=== PATIENT | male | born 1980 | race Caucasian/White ===

== ENCOUNTER 2018-03-21 06:09 | Inpatient (IN) ==
[2018-03-21] MEDS ORDERED: Sod Chloride 0.9% Inj 1,000 ML IV.SIG SCH ×3 (06:45)
--- NOTE | 2018-03-21 06:45 | ED ---
HPI General Chief Complaint: Cardiac Arrest/CPR Stated Complaint: Unresponsive Time Seen by Provider: 03/21/18 06:32 Source: patient and EMS Mode of arrival: EMS Limitations: altered mental status History of Present Illness HPI narrative: 37 yo M arrives by EMS 2/ unresponsive state. EMS reports pt was found unresponsive outside on a porch. On scene patient was pulseless and CPR was initiated with patient found to be asystolic followed by PEA. Epinephrine given multiple times en route. Bicarb given once. No pulse en route. Combitube intubation was performed successfully. Pt arrived to ED while CPR was performed by EMS. Related Data Home Medications Medication Instructions Recorded Confirmed Unable to Obtain Home Meds 03/21/18 03/21/18 Allergies Allergy/AdvReac Type Severity Reaction Status Date / Time No Allergy Information Allergy Verified 03/21/18 06:25 Available Review of Systems ROS Unobtainable ROS Unobtainable: unobtainable due to endotracheal tube PMFSH Social History Social History Substance History: Unable to Obtain Second Hand Smoke Exposure: Yes Smoking Status: Unknown if ever smoked Tobacco Type: Cigarettes How Often Do You Have a Drink Containing Alcohol: Unable to Obtain Immunization History Tetanus Immunization: Unsure Exam Narrative Exam Narrative: GENERAL: 37 yo male, WNWD, GCS 3T, pupils fixed and dilated, pt very cold to palpation SKIN: Skin intact. Skin cold. HEAD: Atraumatic. Normocephalic. EYES: Pupils fixed and dilated. ENT: Intubated with combitube. NECK: Trachea midline. +JVD. CARDIOVASCULAR: Asystole. RESPIRATORY: Combitube intubation. + Breath sounds bilaterally GASTROINTESTINAL: Distended abdomen. MUSCULOSKELETAL: No obvious deformities. No clubbing. No cyanosis. No edema. NEUROLOGICAL: GCS 3T. PSYCHIATRIC: Unable to assess. Course Initial Documented Vital Signs Pulse Rate 79 03/21/18 06:25 Respiratory Rate 6 L 03/21/18 06:25 Blood Pressure 87/31 L 03/21/18 06:25 Pulse Oximetry 78 L 03/21/18 06:25 Last Documented Vital Signs Temperature 85 F L 03/21/18 07:02 Pulse Rate 90 03/21/18 07:02 Respiratory Rate 18 03/21/18 07:02 Blood Pressure 97/50 L 03/21/18 07:02 Pulse Oximetry 100 03/21/18 07:02 Procedures Central Line Placement Right IJ: Time Out Performed: Yes Patient Placed on Monitor/Pulse Ox: Yes MD Prep: mask, gown and gloves Central Line Prep: Povidone-Iodine 1% and sterile drapes applied Ultrasound Used for Placement: Yes Central Line Lumen Inserted: triple Post Procedure: good blood return, all ports aspirated, flushed, capped and sterile dressing applied Patient Tolerated Procedure: no complications Complications: none Intubation Time Out Performed: Yes Sedative: none Laryngoscope: Diya ET Tube Size: 8 ET Tube Uncuffed: Yes Tube Secured Depth (cm): 24 Tube Placement Confirmation: visualized tube passing through cords, equal breath sounds bilaterally, no breath sounds over epigastrium and confirmation by capnometry Patient Tolerated Procedure: well Intubation Complications: none Critical Care Time Critical Care Time: Yes Total Critical Care Time: 35 Attestation: Aggregate critical care time was 35 minutes. Time to perform other separately billable procedures was not included in the critical care time. My time did not include minutes spent treating any other patients simultaneously or on activities that did not directly contribute to the patient's treatment. The services I provided to this patient were to treat and/or prevent clinically significant deterioration that could result in: cardiopulmonary arrest I provided critical care services requiring my management, as noted below: Chart data review, documentation time, medication orders and management, vital sign assessments/reviewing monitor data, ordering and reviewing lab tests, ordering and interpreting/reviewing x-rays and diagnostic studies, care of the patient and discussion of the patient with the admitting physicians. Medical Decision Making MDM Narrative Medical decision making narrative: Prior records demonstrate one ED visit after pt injected IV heroine. After one round CPR return of circulation occurred. Pt had been intubated with 8-0 tube and RIJ central line placed without difficulty. 3L NS bolus started, 1 with 1mg epinephrine as blood pressure decreased to 60/ 33 with pulse of about 100. EKG shows atrial fibrillation, rate 69, moderate SP depressions throughout multiple leads Call to digital research analyst service was made at 635AM. CXR shows RIJ central line overlying SVC without PTX . ETT tip in trachea. d/w Dr Pepe for Cardiac Sonographer Service with CT brain pending Medical Screen Exam Complete: Yes Emergency Medical Condition: Yes Lab Data Result diagrams: 03/21/18 06:40 03/21/18 06:40 Lab Results 03/21/18 Range/Units 06:40 WBC 15.6 H (4.0-11.0) th/mm3 RBC 3.86 L (4.50-5.90) mil/mm3 Hgb 12.1 L (13.0-17.0) gm/dL Hct 36.6 L (39.0-51.0) % MCV 94.8 (80.0-100.0) fL MCH 31.4 (27.0-34.0) pg MCHC 33.1 (32.0-36.0) % RDW 13.9 (11.6-17.2) % Plt Count 148 L (150-450) th/mm3 MPV 10.2 (7.0-11.0) fL Prelim Diff (Auto) Slide review pending Neut % (Auto) 53.5 (16.0-70.0) % Lymph % (Auto) 34.4 (9.0-44.0) % Wagoner % (Auto) 10.4 H (0.0-8.0) % Eos % (Auto) 1.5 (0.0-4.0) % Baso % (Auto) 0.2 (0.0-2.0) % Neut # (Auto) 8.3 H (1.8-7.7) th/mm3 Lymph # (Auto) 5.3 H (1.0-4.8) th/mm3 Wagoner # (Auto) 1.6 H (0.0-0.9) th/mm3 Eos # (Auto) 0.2 (0.0-0.4) th/mm3 Baso # (Auto) 0.0 (0.0-0.2) th/mm3 Differential Comment . Imaging Data Radiologist's impression: Chest X-Ray 03/21/18 06:32 CONCLUSION: Lines and tubes appear appropriate in position. Bilateral perihilar patchy airspace consolidation is present. Pattern consistent with noncardiac pulmonary edema. Discharge Plan Discharge Disposition Patient Disposition: ED Admit(ED Internal Use Only) Discharge Order Discharge Orders: ED Use Only Admit Order (Routine); Ordered 03/21/18 Ordered By: Jc Whittaker Physicians Team ED Provider: Jc Whittaker Primary Care Provider: UNKNOWN, Rxs /Orders / Referrals /Forms Prescriptions: No Action Unable to Obtain Home Meds RF: 0 Status ED Status: With Doctor
[2018-03-21 07:02] LABS: Baso % (Auto) 0.2 % (0.0-2.0); Eos # (Auto) 0.2 th/mm3 (0.0-0.4); Eos % (Auto) 1.5 % (0.0-4.0); Hematocrit 36.6 % (39.0-51.0); Hemoglobin 12.1 gm/dL (13.0-17.0); Lymph # (Auto) 5.3 th/mm3 (1.0-4.8); Lymph % (Auto) 34.4 % (9.0-44.0); Mean Corpuscular HGB Conc 33.1 % (32.0-36.0); Mean Corpuscular Hemoglobin 31.4 pg (27.0-34.0); Mean Corpuscular Volume 94.8 fL (80.0-100.0); Mean Platelet Volume 10.2 fL (7.0-11.0); Mono # (Auto) 1.6 th/mm3 (0.0-0.9); Mono % (Auto) 10.4 % (0.0-8.0); Neut # (Auto) 8.3 th/mm3 (1.8-7.7); Neut % (Auto) 53.5 % (16.0-70.0); Platelet Count 148 th/mm3 (150-450); Red Blood Count 3.86 mil/mm3 (4.50-5.90); Red Cell Distribution Width 13.9 % (11.6-17.2); White Blood Count 15.6 th/mm3 (4.0-11.0)
--- NOTE | 2018-03-21 07:08 | XR ---
EXAM DATE: 03/21/2018 6:55 AM EST AGE/SEX: 37 years / Male INDICATIONS: E-T tube placement post cardiac arrest on an unresponsive patient also suffering from h ypothermia. CLINICAL DATA: This is the patient's initial encounter. Patient reports that signs and symptoms have been present for 1 day and indicates a pain score of Nonresponsive. MEDICAL/SURGICAL HISTORY: Non-responsive. Non-responsive. COMPARISON: [facility] [place], CHEST PA & LAT, 08/02/2011. . FINDINGS: Single AP view of the chest demonstrates an endotracheal tube with the tip at the level of the clavic les. Gastric tubing extending beyond the level the diaphragm and coiled within the stomach. Right-vanita ed IJ line with the tip overlying the distal SVC. Lungs demonstrate bilateral patchy perihilar airspa ce consolidation. Osseous structures are unremarkable. CONCLUSION: Lines and tubes appear appropriate in position. Bilateral perihilar patchy airspace consolidation is present. Pattern consistent with noncardiac pulmonary edema. Electronically signed by: Vicky Curtis MD Board Certified Radiologist 03/21/2018 7:07 AM EST
[2018-03-21 07:19] LABS: Bilirubin,Urine Negative (Negative); Clarity,Urine Hazy (Clear); Color,Urine Yellow (Yellw/Straw); Glucose,Urine (UA) Negative (Negative); Hyaline Casts,Urine 25 /lpf (0-3); Leukocyte Esterase,Urine Negative (Negative); Mucus,Urine Few /lpf (Occasional); Nitrite,Urine Negative (Negative); Specific Gravity,Urine 1.013 (1.002-1.035); Sperm,Urine Rare /hpf; Squamous Epithelial Cell,Urine <1 /hpf (0-5)
[2018-03-21 07:21] LABS: Amphetamine Screen,Urine Pos (Neg); Barbiturate Screen,Urine Neg (Neg); Cannabinoid Screen,Urine Neg (Neg); Cocaine Screen,Urine Neg (Neg)
[2018-03-21 07:24] LABS: Opiate Screen,Urine Pos (Neg)
[2018-03-21 07:26] LABS: Alanine Aminotransferase 291 U/L (12-78); Albumin 2.9 g/dL (3.4-5.0); Alkaline Phosphatase 142 U/L (45-117); Anion Gap 26 meq/L (5-15); Aspartate Aminotransferase 351 U/L (15-37); Blood Urea Nitrogen 22 mg/dL (7-18); Calcium 7.9 mg/dL (8.5-10.1); Carbon Dioxide 19.4 meq/L (21.0-32.0); Chloride 98 meq/L (98-107); Glomerular Filtration Rate 30 mL/min (>89); Magnesium 3.6 mg/dL (1.5-2.5); Potassium 4.5 meq/L (3.5-5.1); Sodium 143 meq/L (136-145); Total Protein 5.5 g/dL (6.4-8.2); Troponin I 0.05 ng/mL (0.02-0.05)
[2018-03-21 07:37] LABS: Eosinophils 2 % (0-4); Monocytes 9 % (0-8); Myelocytes 1 % (0-0); Tallied Nucleated RBC 1 (0-0)
[2018-03-21 07:38] LABS: Glucose,Random 45 mg/dL (74-106); Lymphocytes 40 % (9-44)
[2018-03-21 07:39] LABS: Platelet Morphology Normal (Normal); RBC Morphology Normal (Normal)
--- NOTE | 2018-03-21 07:46 | CT ---
EXAM DATE: 03/21/2018 7:31 AM EST AGE/SEX: 37 years / Male INDICATIONS: Unresponsive. Post cardiac arrest. CLINICAL DATA: This is the patient's initial encounter. Patient reports that signs and symptoms have been present for 1 day and indicates a pain score of Nonresponsive. MEDICAL/SURGICAL HISTORY: Non-responsive. Non-responsive. RADIATION DOSE: 56.35 CTDI (mGy) COMPARISON: [facility] [place], CT BRAIN W/O CONTRAST, 10/13/2012. . TECHNIQUE: CT of the head without contrast. Using automated exposure control and adjustment of the mA and/or kV according to patient size, radiation dose was kept as low as reasonably achievable to ob tain optimal diagnostic quality images. DICOM format image data is available electronically for revi ew and comparison. FINDINGS: Cerebrum: The ventricles are symmetrically decreased in size as compared to the prior exam. The presley -white matter preserved. There appears to be diffuse effacement of the sulci as compared to the prior exam. Posterior Fossa: The fourth ventricle remains patent but decreased in size as compared to the prior exam. Extracranial: The visualized portion of the orbits is intact. Skull: The calvaria is intact. No evidence of skull fracture. CONCLUSION: 1. There is evidence of diffuse cerebral swelling with decreased size of the ventricles as compared to the prior exam and poor visualization of the sulci as compared to the prior exam. . Electronically signed by: Vicky Curtis MD Board Certified Radiologist 03/21/2018 7:44 AM EST
[2018-03-21 07:48] LABS: ABG Base Excess -18.2 mmol/L (-2-2); ABG PCO2 65 mmHg (38-42); ABG PO2 348 mmHg (61-120)
[2018-03-21] MEDS ORDERED: Bisacodyl 10 MG Supp RECTAL PRN (07:51)
[2018-03-21] MEDS ORDERED: Dextrose 50% in Water 50 ML Vial IV.PUSH PRN (07:55)
[2018-03-21] MEDS: Sodium Bicarbonate 8.4% Inj 150 MEQ in Dextrose 5% in Water Inj 850 ML IV.CONT SCH ×6 (08:25→22:37)
[2018-03-21] MEDS ORDERED: Vancomycin Inj 1,000 MG in Sodium Chlor 0.9% Inj 250 ML IV.SIG ONE (09:00)
--- NOTE | 2018-03-21 09:43 | MH ---
cc: Karissa Pepe MD DATE OF ADMISSION: 03/21/2018 HISTORY OF PRESENT ILLNESS: The patient is a 37-year-old male with a past medical history of polysubstance abuse who presented to [facility] ED via EMS status post cardiopulmonary arrest. He was found unresponsive outside on the porch and when EMS arrived, the patient was found pulseless. CPR was initiated and the patient was in asystole followed by a PEA arrest. ACLS protocol was initiated, and the patient received epinephrine multiple times en route and bicarbonate. Combitube intubation was performed successfully. The patient arrived in the ED, while CPR was performed by EMS. On arrival, he was hypotensive with a systolic blood pressure in the 80s, hypothermic with a temperature of 84-85 degrees Fahrenheit. In the ED, he was given a 3 liter bolus of normal saline, intubated with 8.0 ET tube, and a right IJ central line was placed by ED physician. Also, he was started on Levophed, which is currently at 10 mcg. His laboratory data is significant for severe lactic acidosis with a lactic acid level of 19.5, acute renal failure with a creatinine of 2.42. In addition, the patient was hypoglycemic with a blood sugar of 45 on the CMP. Also, he has leukocytosis with a WBC of 15.6. Initial ABG on the ventilator showed severe respiratory and metabolic acidosis with a pH of 6.91, CO2 65, PaO2 348, bicarbonate of 12, saturations of 97%. Chest x-ray showed bilateral perihilar patchy airspace consolidation. A CT scan of the brain was obtained, which showed diffuse cerebral swelling with decreased size of the ventricles. The patient is unresponsive and not on any sedation. PAST MEDICAL HISTORY: Unobtainable. PAST SURGICAL HISTORY: Unobtainable. ALLERGIES: Unknown. SOCIAL HISTORY: The patient has a history of polysubstance abuse, per ED. FAMILY HISTORY: Noncontributory. REVIEW OF SYSTEMS: Unobtainable. PHYSICAL EXAMINATION: GENERAL: A 37-year-old male status post cardiac arrest, orally intubated and critically ill. VITAL SIGNS: Hypothermic with temperature 84-85 degrees rectally, pulse is 91, blood pressure 131/85 on Levophed, saturation 100%. Vent settings: PRVC rate of 24, tidal volume 600, I time 1.0, PEEP of 5, FiO2 of 50%. HEENT: Pupils fixed, dilated. NECK: No JVD, adenopathy, or thyromegaly. Orally intubated. CARDIOVASCULAR: Regular rhythm. Normal S1, S2. No murmurs, rubs or gallops noted. PULMONARY: Bilateral equal air entry. No rales or wheezing. ABDOMEN: Soft, nontender. No distention. Positive bowel sounds. EXTREMITIES: No cyanosis, clubbing or edema. NEUROLOGIC: GCS score of 3. Pupils fixed, dilated, unresponsive, not on any sedation. LABORATORY DATA: WBC 15.6, hemoglobin 12, hematocrit 36, platelet count 148. Sodium 143, potassium 4.5, chloride 98, CO2 of 19, BUN 22, creatinine 2.42, glucose 45. Lactic acid 19.5, AST 351, ALT 291, total bilirubin 1.7. Troponin 0.05. Albumin 2.9. ABG showed pH of 6.91, CO2 65, pO2 348, bicarbonate 12, saturation 97%. Urine drug screen positive for opiates and amphetamines. Chest x-ray showed ET tube above the albertina, right IJ central line in place, bilateral perihilar patchy airspace consolidation. CT brain showed diffuse cerebral swelling. IMPRESSION: 1. Ventilator-dependent respiratory failure. 2. Status post cardiopulmonary arrest. 3. Anoxic brain injury. 4. Aspiration pneumonia. 5. Polysubstance abuse with urine drug screen positive for amphetamines and opiates. 6. Lactic acidemia 7. Acute kidney injury. 8. Elevated liver enzymes. 9. Leukocytosis. 10. Hypoglycemia. RECOMMENDATIONS: 1. The patient is not on any sedation and unresponsive. CT scan of the brain showed diffuse cerebral swelling. We will obtain EEG, check ammonia level, and consult neurology service. 2. Continue with vent support and maintain sats above 92%. 3. Bronchodilators in the form of DuoNeb. 4. Place on stress dose steroids 100 mg IV every 8 hours. 5. Wean off Levophed. Maintain MAP greater than 65 mmHg. Serial lactic acid until clear. 6. We will give 2 amps of IV push of sodium bicarbonate followed by D5W with 3 amps of bicarbonate at 150 mL an hour. 7. The patient is not a candidate for Code Cool due to hemodynamic instability, severe lactic acidemia multiorgan injury, and with diffuse cerebral swelling on CT of brain and anoxic brain injury. 8. We will obtain 2-D echo to evaluate ventricular function. 9. Monitor renal function, intake and output, and avoid nephrotoxins. 10. I will obtain ultrasound of the abdomen and place on bicarbonate drip as stated above. Check CKs and monitor BMP. 11. Keep n.p.o. and place on Pepcid for gastrointestinal prophylaxis. Monitor liver function tests. We will obtain ultrasound of the liver and hepatitis profile. 12. Place on empiric antibiotics in the form of aztreonam, and will give 1 dose of vancomycin. Monitor for signs of infection, which include fever and WBC. Follow up on blood cultures. We will obtain a sputum culture with Gram stain. His nasal washing screening for influenza is negative. 13. Place on sliding scale insulin with Accu-Cheks every 4 hours. 14. Monitor CBC. 15. Gastrointestinal prophylaxis with Pepcid, and deep venous thrombosis prophylaxis with sequential compression devices. 16. Consult palliative care to assist with goals of care. 17. Lines: Right IJ central line was placed by ED physician. 18. The patient is critically ill with severe anoxic brain injury, acute renal failure, multiple organ injury post-cardiac arrest. CRITICAL CARE TIME: Sixty minutes, excluding procedures. MD JARRET Gaming/anastasia , 08:57 AM , 09:10 AM
[2018-03-21 10:04] LABS: ABG Base Excess -8.3 mmol/L (-2-2); ABG PCO2 34 mmHg (38-42); ABG PO2 57 mmHG (61-120)
[2018-03-21 10:36] LABS: Creatine Kinase MB 31.5 ng/mL (0.5-3.6)
[2018-03-21 10:37] LABS: Hepatitits B Surface Antigen Nonreactive (Nonreactive)
[2018-03-21 10:46] LABS: ABG Base Excess -7.5 mmol/L (-2-2); ABG PCO2 35 mmHg (38-42); ABG PO2 235 mmHG (61-120)
[2018-03-21] MEDS: Pantoprazole Inj 40 MG Vial IV.PUSH SCH (10:57)
[2018-03-21 11:08] LABS: Hepatitis A IgM Antibody Nonreactive (Nonreactive)
[2018-03-21] MEDS: fentaNYL 10 mcg/mL Premix Drip 2,500 MCG/250 ML BAG IV.SIG PRN (11:11)
[2018-03-21] MEDS: Hydrocortisone Sod Succinate 100 MG Vial IV.PUSH SCH ×3 (11:12→21:04)
[2018-03-21] MEDS ORDERED: Insulin NovoLOG Aspart Correctional Sugar Inj SQ SCH (12:00)
[2018-03-21 12:51] LABS: Albumin 2.9 g/dL (3.4-5.0); Calcium 6.6 mg/dL (8.5-10.1); Carbon Dioxide 25.2 meq/L (21.0-32.0); Potassium 3.1 meq/L (3.5-5.1); Total Protein 5.7 g/dL (6.4-8.2)
[2018-03-21] MEDS: Insulin NovoLOG Aspart Correctional Sugar Inj SQ SCH ×2 (13:39→18:36)
[2018-03-21] MEDS ORDERED: Potassium Chlor 40 mEq Premix 40 MEQ/100 ML PIGGYBACK IV.SIG ONE (14:00)
--- NOTE | 2018-03-21 15:45 | P.CONNEU ---
History of Present Illness Service: Neurology Primary Care Provider: UNKNOWN History of Present Illness: 37-year-old male admitted cardiac arrest. Apparently found down on the porch. Found by EVAC to be pulseless in [place]. Apparently no pulse en route to the hospital. In the ER he suspects successfully resuscitated. Intubated in cardiac critical care. Urine drug screen positive for amphetamines. CT brain scan demonstrated cortical edema. Patient is not on sedation is intubated unable to give any history. Review of Systems unobtainable due to endotracheal tube, unobtainable due to mental status PMFSH - History History Provided By: Replenishment Analyst / EMT - Medical History Medical History: Medical History (Last Reviewed 03/21/18 @ 06:26 by Deedee Ware) Patient denies medical problems - Surgical History Surgical History: Surgical History (Last Reviewed 03/21/18 @ 06:26 by Deedee Ware) No history of previous surgery - Tobacco History Second Hand Smoke Exposure: Yes Smoking Status: Unknown if ever smoked Tobacco Type: Cigarettes - Alcohol History How Often Do You Have a Drink Containing Alcohol: Unable to Obtain - Substance Use History Substance History: Unable to Obtain - Immunization History Tetanus Immunization: Unsure Medications and Allergies Active Medications: Active Medications Al Hydroxide/Mg Hydroxide (Milk Of Mick Grey) 30 ml PO Q12H PRN PRN Reason: Mild Constipation Albuterol (Duoneb Neb (Prn)) 1 ampul NEB Q2HR NEB PRN PRN Reason: WHEEZING Albuterol (Duoneb Neb (Evan)) 1 ampul NEB Q4HR NEB EVAN Last Admin: 03/21/18 12:14 Dose: 1 ampul Bisacodyl (Dulcolax Supp) 10 mg RECTAL DAILY PRN PRN Reason: SEVERE CONSITIPATION Chlorhexidine Gluconate (Chlorhexidine 2% Cloth) 3 pack TOPICAL DAILY@0400 EVAN Stop: 03/27/18 03:59 Chlorhexidine Gluconate (Chlorhexidine 2% Cloth) 3 pack TOPICAL DAILY@0400 PRN PRN Reason: Extra cloth needed Stop: 03/27/18 03:59 Dextrose (D50w Vial) 50 ml IV.PUSH UNSCH PRN PRN Reason: PER HYPOGLYCEMIA PROTOCOL Glucagon (Glucagon Inj) 1 mg OTHER PRN PRN PRN Reason: for Hypoglycemia Protocol Hydrocortisone Sodium Succinate (Solucortef Inj) 100 mg IV.PUSH Q8HR EVAN Last Admin: 03/21/18 13:40 Dose: 100 mg Sodium Chloride (Ns Inj) 1,000 mls @ 0 mls/hr IV.SIG .Q0M EVAN Last Infusion: 03/21/18 07:40 Dose: Infused Sodium Chloride (Ns Inj) 1,000 mls @ 0 mls/hr IV.SIG .Q0M EVAN Last Infusion: 03/21/18 08:45 Dose: Infused Sodium Chloride (Ns Inj) 1,000 mls @ 0 mls/hr IV.SIG .Q0M [facility] Last Infusion: 03/21/18 09:00 Dose: Infused Norepinephrine Bitartrate (Levophed-Dextrose 4 Mg/250 Ml Drip) 4 mg in 250 mls @ 7.5 mls/hr IV.SIG TITRATE PRN; Protocol PRN Reason: Per Protocol Last Titration: 03/21/18 13:42 Dose: 0 mcg/min, 0 mls/hr Sodium Bicarbonate 150 meq/ (Dextrose) 1,000 mls @ 150 mls/hr IV.CONT .Q6H40M [facility] Last Admin: 03/21/18 15:25 Dose: 150 mls/hr Aztreonam 1,000 mg/ Sodium (Chloride) 100 mls @ 200 mls/hr IV.SIG Q8H [facility] Last Infusion: 03/21/18 09:00 Dose: Infused Fentanyl (Fentanyl 10 Mcg/Ml Premix Drip) 2,500 mcg in 250 mls @ 5 mls/hr IV.SIG TITRATE PRN; Protocol PRN Reason: Per Protocol Last Admin: 03/21/18 11:11 Dose: 50 mcg/hr, 5 mls/hr Potassium Chloride (Kcl 40 Meq Premix Inj) 40 meq in 100 mls @ 25 mls/hr IV.SIG ONCE ONE Stop: 03/21/18 17:59 Last Admin: 03/21/18 14:43 Dose: 25 mls/hr Insulin Aspart (Novolog Insulin Correctional Sugar Inj) 0 unit SQ Q4HR [facility]; Protocol Last Admin: 03/21/18 13:39 Dose: 1 unit Lactulose (Lactulose Liq) 30 ml PO DAILY PRN PRN Reason: SEVERE CONSITIPATION Pantoprazole Sodium (Protonix Inj) 40 mg IV.PUSH DAILY [facility] Last Admin: 03/21/18 10:57 Dose: 40 mg Sennosides (Senokot) 17.2 mg PO Q12H PRN PRN Reason: Moderate Constipation Sodium Chloride (Ns Flush) 2 ml IV.FLUSH BID EVAN Last Admin: 03/21/18 11:13 Dose: 2 ml Sodium Chloride (Ns Flush) 2 ml IV.FLUSH PRN PRN PRN Reason: FLUSH AFTER USING IV ACCESS Terbutaline Sulfate (Brethine Inj) 1 mg SQ UNSCH PRN PRN Reason: For Extravasation Allergies Allergy/AdvReac Type Severity Reaction Status Date / Time No Allergy Information Allergy Verified 03/21/18 06:25 Available Home Medications Medication Instructions Recorded Confirmed Type Unable to Obtain Home Meds 03/21/18 03/21/18 History Exam Vital signs: Vital Signs 03/21/18 06:25 03/21/18 06:30 03/21/18 06:32 Temperature Pulse Rate 79 Respiratory Rate 6 L 18 Blood Pressure 87/31 L Pulse Oximetry 78 L 97 100 03/21/18 07:02 03/21/18 07:15 03/21/18 07:23 Temperature 85 F L 84 F L Pulse Rate 90 88 Respiratory Rate 18 18 Blood Pressure 97/50 L 85/44 L Pulse Oximetry 100 100 100 03/21/18 07:33 03/21/18 07:52 03/21/18 07:55 Temperature Pulse Rate 74 81 Respiratory Rate 18 Blood Pressure 113/66 Pulse Oximetry 100 100 03/21/18 08:29 03/21/18 09:26 03/21/18 09:36 Temperature 86.6 F L Pulse Rate 89 Respiratory Rate 25 H 26 H Blood Pressure 138/88 Pulse Oximetry 99 95 96 03/21/18 09:59 03/21/18 11:00 03/21/18 12:14 Temperature 89.2 F L Pulse Rate 81 88 Respiratory Rate 28 H 24 24 Blood Pressure 135/95 H Pulse Oximetry 100 100 03/21/18 12:15 03/21/18 14:17 03/21/18 15:00 Temperature 96.2 F L Pulse Rate 89 100 H Respiratory Rate 12 24 24 Blood Pressure 141/90 H Pulse Oximetry 99 100 Intake & Output 03/20/18 03/21/18 03/21/18 18:59 06:59 18:59 Intake Total 4500 / 4500 Balance 4500 / 4500 Weight 95.254 kg Intake: IV 4500 / 4500 Sodium Bicarbonate 8.4% Inj 150 1000 / 1000 MEQ In D5W Inj 850 ML @ 150 mls/hr IV.CONT .Q6H40M [facility] Rx#: [id number] Azactam Inj 1,000 MG In NS Inj 100 / 100 100 ML @ 200 mls/hr IV.SIG Q8H [facility] Rx#:[id number] Levaquin 750 mg Premix Inj 150 150 / 150 ML @ 100 mls/hr IV.SIG ONCE ONE Rx#:[id number] NS Inj 1,000 ML @ Wide Open IV. 3000 / 3000 SIG .Q0M [facility] Rx#:[id number] Vancomycin Inj 1,000 MG In NS 250 / 250 Inj 250 ML @ 250 mls/hr IV.SIG ONCE ONE Rx#:[id number] Narrative: Intubated on no sedation. Nonverbal not following comatose state. No involuntary movements seen. Pupils approximately 2 mm nonreactive no corneal reflex impaired oculocephalic reflex no current gag reflex no flexion or withdrawal to tactile stimuli plantarflexion no clonus Results - Labs CBC & Chem 7: 03/21/18 06:40 03/21/18 12:00 Labs: Laboratory Results - last 24 hr 03/21/18 03/21/18 03/21/18 06:40 06:40 06:40 WBC 15.6 H RBC 3.86 L Hgb 12.1 L Hct 36.6 L MCV 94.8 MCH 31.4 MCHC 33.1 RDW 13.9 Plt Count 148 L MPV 10.2 Prelim Diff (Auto) Slide review pending Neut % (Auto) 53.5 Lymph % (Auto) 34.4 [place] % (Auto) 10.4 H Eos % (Auto) 1.5 Baso % (Auto) 0.2 Neut # (Auto) 8.3 H Lymph # (Auto) 5.3 H [place] # (Auto) 1.6 H Eos # (Auto) 0.2 Baso # (Auto) 0.0 WBC Differential Manual diff final Seg Neuts % (Manual) 41 Band Neuts % (Manual) 7 H Lymphocytes % (Manual) 40 Monocytes % (Manual) 9 H Eosinophils % (Manual) 2 Myelocytes % (Man) 1 H Abs Neuts (Manual) 7.6 Nucleated RBCs/100 WBC 1 H Differential Comment . Platelet Estimate Low L Platelet Morphology Normal RBC Morphology Normal Puncture Site Patient Temperature O2 Saturation ABG pH ABG pCO2 ABG pO2 ABG HCO3 ABG O2 Content ABG Base Excess ABG Methemoglobin Humberto Test Hemoglobin Carboxyhemoglobin O2 Delivery Device Vent Setting Inspired O2 Critical Value Sodium 143 Potassium 4.5 Chloride 98 Carbon Dioxide 19.4 L Anion Gap 26 H BUN 22 H Creatinine 2.42 H Estimated GFR 30 L POC Glucose Random Glucose 45 L* Lactic Acid 19.5 H* Calcium 7.9 L Calcium Adj for Albumin Magnesium 3.6 H Total Bilirubin 1.7 H AST 351 H ALT 291 H Alkaline Phosphatase 142 H Total Creatine Kinase CK-MB (CK-2) CK-MB (CK-2) % Troponin I 0.05 Total Protein 5.5 L Albumin 2.9 L Urine Color Urine Clarity Urine pH Ur Specific [place] Urine Protein Urine Glucose (UA) Urine Ketones Urine Occult Blood Urine Nitrate Urine Bilirubin Urine Urobilinogen Ur Leukocyte Esterase Urine RBC Urine WBC Ur Squamous Epith Cells Hyaline Casts Urine Mucus Urine Sperm Micro UA Comment Ur Microscopic Review Urine Culture Comments Nasal Screen MRSA (PCR) Urine Opiates Screen Ur Barbiturates Screen Ur Amphetamines Screen U Benzodiazepines Scrn Urine Cocaine Screen U Cannabinoids Screen Hepatitis A IgM Ab Hep Bs Antigen Hep B Core IgM Ab Hep C IgG Ab 03/21/18 03/21/18 03/21/18 06:45 06:45 07:34 WBC RBC Hgb Hct MCV MCH MCHC RDW Plt Count MPV Prelim Diff (Auto) Neut % (Auto) Lymph % (Auto) [place] % (Auto) Eos % (Auto) Baso % (Auto) Neut # (Auto) Lymph # (Auto) [place] # (Auto) Eos # (Auto) Baso # (Auto) WBC Differential Seg Neuts % (Manual) Band Neuts % (Manual) Lymphocytes % (Manual) Monocytes % (Manual) Eosinophils % (Manual) Myelocytes % (Man) Abs Neuts (Manual) Nucleated RBCs/100 WBC Differential Comment Platelet Estimate Platelet Morphology RBC Morphology Puncture Site Left radial Patient Temperature 98.6 O2 Saturation 97 ABG pH 6.91 L* ABG pCO2 65 H* ABG pO2 348 H ABG HCO3 12 L* ABG O2 Content 16.0 ABG Base Excess -18.2 L ABG Methemoglobin 0.5 Humberto Test Present Hemoglobin 11.1 L Carboxyhemoglobin 1.3 O2 Delivery Device Ventilator Vent Setting Inspired O2 100 Critical Value Yes Sodium Potassium Chloride Carbon Dioxide Anion Gap BUN Creatinine Estimated GFR POC Glucose Random Glucose Lactic Acid Calcium Calcium Adj for Albumin Magnesium Total Bilirubin AST ALT Alkaline Phosphatase Total Creatine Kinase CK-MB (CK-2) CK-MB (CK-2) % Troponin I Total Protein Albumin Urine Color Yellow Urine Clarity Hazy H Urine pH 6.0 Ur Specific [place] 1.013 Urine Protein Negative Urine Glucose (UA) Negative Urine Ketones Negative Urine Occult Blood Negative Urine Nitrate Negative Urine Bilirubin Negative Urine Urobilinogen 2.0 H Ur Leukocyte Esterase Negative Urine RBC 1 Urine WBC Less than 1 Ur Squamous Epith Cells <1 Hyaline Casts 25 Urine Mucus Few H Urine Sperm Rare H Micro UA Comment Cath-culture not ind Ur Microscopic Review Not Reportable Urine Culture Comments Cath-cult not ind Nasal Screen MRSA (PCR) Urine Opiates Screen Pos H Ur Barbiturates Screen Neg Ur Amphetamines Screen Pos H U Benzodiazepines Scrn Neg Urine Cocaine Screen Neg U Cannabinoids Screen Neg Hepatitis A IgM Ab Hep Bs Antigen Hep B Core IgM Ab Hep C IgG Ab 03/21/18 03/21/18 03/21/18 09:09 09:10 09:42 WBC RBC Hgb Hct MCV MCH MCHC RDW Plt Count MPV Prelim Diff (Auto) Neut % (Auto) Lymph % (Auto) [place] % (Auto) Eos % (Auto) Baso % (Auto) Neut # (Auto) Lymph # (Auto) [place] # (Auto) Eos # (Auto) Baso # (Auto) WBC Differential Seg Neuts % (Manual) Band Neuts % (Manual) Lymphocytes % (Manual) Monocytes % (Manual) Eosinophils % (Manual) Myelocytes % (Man) Abs Neuts (Manual) Nucleated RBCs/100 WBC Differential Comment Platelet Estimate Platelet Morphology RBC Morphology Puncture Site Patient Temperature O2 Saturation ABG pH ABG pCO2 ABG pO2 ABG HCO3 ABG O2 Content ABG Base Excess ABG Methemoglobin Humberto Test Hemoglobin Carboxyhemoglobin O2 Delivery Device Vent Setting Inspired O2 Critical Value Sodium Potassium Chloride Carbon Dioxide Anion Gap BUN Creatinine Estimated GFR POC Glucose Random Glucose Lactic Acid Calcium Calcium Adj for Albumin Magnesium Total Bilirubin AST ALT Alkaline Phosphatase Total Creatine Kinase 1557 H CK-MB (CK-2) 31.5 H CK-MB (CK-2) % 2.0 Troponin I Total Protein Albumin Urine Color Urine Clarity Urine pH Ur Specific [place] Urine Protein Urine Glucose (UA) Urine Ketones Urine Occult Blood Urine Nitrate Urine Bilirubin Urine Urobilinogen Ur Leukocyte Esterase Urine RBC Urine WBC Ur Squamous Epith Cells Hyaline Casts Urine Mucus Urine Sperm Micro UA Comment Ur Microscopic Review Urine Culture Comments Nasal Screen MRSA (PCR) Not detected Urine Opiates Screen Ur Barbiturates Screen Ur Amphetamines Screen U Benzodiazepines Scrn Urine Cocaine Screen U Cannabinoids Screen Hepatitis A IgM Ab Nonreactive Hep Bs Antigen Nonreactive Hep B Core IgM Ab Nonreactive Hep C IgG Ab Reactive H 03/21/18 03/21/18 03/21/18 09:42 09:54 10:36 WBC RBC Hgb Hct MCV MCH MCHC RDW Plt Count MPV Prelim Diff (Auto) Neut % (Auto) Lymph % (Auto) [place] % (Auto) Eos % (Auto) Baso % (Auto) Neut # (Auto) Lymph # (Auto) [place] # (Auto) Eos # (Auto) Baso # (Auto) WBC Differential Seg Neuts % (Manual) Band Neuts % (Manual) Lymphocytes % (Manual) Monocytes % (Manual) Eosinophils % (Manual) Myelocytes % (Man) Abs Neuts (Manual) Nucleated RBCs/100 WBC Differential Comment Platelet Estimate Platelet Morphology RBC Morphology Puncture Site Right radial Left radial Patient Temperature 98.6 98.6 O2 Saturation 87 L* 97 ABG pH 7.31 L 7.32 L ABG pCO2 34 L 35 L ABG pO2 57 L* 235 H ABG HCO3 17 L 17 L ABG O2 Content 16.1 19.5 ABG Base Excess -8.3 L -7.5 L ABG Methemoglobin 1.6 1.6 Humberto Test + + Hemoglobin 13.2 14.0 Carboxyhemoglobin 1.3 0.7 O2 Delivery Device Ventilator Ventilator Vent Setting See comments See comments Inspired O2 50 100 Critical Value Yes No Sodium Potassium Chloride Carbon Dioxide Anion Gap BUN Creatinine Estimated GFR POC Glucose Random Glucose Lactic Acid 12.6 H* Calcium Calcium Adj for Albumin Magnesium Total Bilirubin AST ALT Alkaline Phosphatase Total Creatine Kinase CK-MB (CK-2) CK-MB (CK-2) % Troponin I Total Protein Albumin Urine Color Urine Clarity Urine pH Ur Specific [place] Urine Protein Urine Glucose (UA) Urine Ketones Urine Occult Blood Urine Nitrate Urine Bilirubin Urine Urobilinogen Ur Leukocyte Esterase Urine RBC Urine WBC Ur Squamous Epith Cells Hyaline Casts Urine Mucus Urine Sperm Micro UA Comment Ur Microscopic Review Urine Culture Comments Nasal Screen MRSA (PCR) Urine Opiates Screen Ur Barbiturates Screen Ur Amphetamines Screen U Benzodiazepines Scrn Urine Cocaine Screen U Cannabinoids Screen Hepatitis A IgM Ab Hep Bs Antigen Hep B Core IgM Ab Hep C IgG Ab 03/21/18 03/21/18 03/21/18 12:00 12:00 13:30 WBC RBC Hgb Hct MCV MCH MCHC RDW Plt Count MPV Prelim Diff (Auto) Neut % (Auto) Lymph % (Auto) [place] % (Auto) Eos % (Auto) Baso % (Auto) Neut # (Auto) Lymph # (Auto) [place] # (Auto) Eos # (Auto) Baso # (Auto) WBC Differential Seg Neuts % (Manual) Band Neuts % (Manual) Lymphocytes % (Manual) Monocytes % (Manual) Eosinophils % (Manual) Myelocytes % (Man) Abs Neuts (Manual) Nucleated RBCs/100 WBC Differential Comment Platelet Estimate Platelet Morphology RBC Morphology Puncture Site Patient Temperature O2 Saturation ABG pH ABG pCO2 ABG pO2 ABG HCO3 ABG O2 Content ABG Base Excess ABG Methemoglobin Humberto Test Hemoglobin Carboxyhemoglobin O2 Delivery Device Vent Setting Inspired O2 Critical Value Sodium 139 Potassium 3.1 L D Chloride 98 Carbon Dioxide 25.2 Anion Gap 16 H BUN 27 H Creatinine 2.08 H Estimated GFR 36 L POC Glucose 196 H Random Glucose 181 H D Lactic Acid 6.7 H* Calcium 6.6 L* D Calcium Adj for Albumin 7.5 L Magnesium Total Bilirubin 3.3 H AST 1052 H ALT 745 H Alkaline Phosphatase 127 H Total Creatine Kinase CK-MB (CK-2) CK-MB (CK-2) % Troponin I Total Protein 5.7 L Albumin 2.9 L Urine Color Urine Clarity Urine pH Ur Specific [place] Urine Protein Urine Glucose (UA) Urine Ketones Urine Occult Blood Urine Nitrate Urine Bilirubin Urine Urobilinogen Ur Leukocyte Esterase Urine RBC Urine WBC Ur Squamous Epith Cells Hyaline Casts Urine Mucus Urine Sperm Micro UA Comment Ur Microscopic Review Urine Culture Comments Nasal Screen MRSA (PCR) Urine Opiates Screen Ur Barbiturates Screen Ur Amphetamines Screen U Benzodiazepines Scrn Urine Cocaine Screen U Cannabinoids Screen Hepatitis A IgM Ab Hep Bs Antigen Hep B Core IgM Ab Hep C IgG Ab - Imaging Impressions Chest X-Ray 03/21/18 06:32 CONCLUSION: Lines and tubes appear appropriate in position. Bilateral perihilar patchy airspace consolidation is present. Pattern consistent with noncardiac pulmonary edema. Head CT 03/21/18 06:36 CONCLUSION: 1. There is evidence of diffuse cerebral swelling with decreased size of the ventricles as compared to the prior exam and poor visualization of the sulci as compared to the prior exam. . Review/Management - Diagnosis (1) Anoxic encephalopathy Code(s): G93.1 - Anoxic brain damage, not elsewhere classified Status: Acute Current Visit: Yes (2) PEA (Pulseless electrical activity) Code(s): I46.9 - Cardiac arrest, cause unspecified Status: Acute Current Visit: Yes - Review/Management Plan: Severe cortical and brainstem injury Absence of brainstem reflexes Recommendation Serial neuro neuro exam Follow-up EEG Consider cerebral blood flow study when stable an apnea test Discussed with FAUSTO
--- NOTE | 2018-03-21 17:39 | US ---
EXAM DATE: 03/21/2018 5:32 PM EST AGE/SEX: 37 years / Male INDICATIONS: Elevated liver function test. Acute kidney insufficiency. CLINICAL DATA: This is the patient's initial encounter. Patient reports that signs and symptoms have been present for 1 day and indicates a pain score of Nonresponsive. MEDICAL/SURGICAL HISTORY: . Polysubstance abuse. Cardiac arrest. Non-responsive. COMPARISON: No prior exams available for comparison. MEASUREMENTS: Liver:__ 18.5 cm. Common Bile Duct:___ 5mm. Right Kidney:___9.3 x 5.3 x 5.2 cm. Left Kidney:___10.2 x 5.9 x 5.9 cm. Spleen:___8.9 . FINDINGS: Liver: There are 2 focal rounded areas of hyperechogenicity in the right lobe measuring 11 x 9 x 12 mm and 2.8 x 1.5 x 2.8 cm. These have features suggestive of hemangiomata. No other lesions seen. No ductal dilatation. Portal Vein: Hepatopedal flow seen in portal vein. Common Duct: No intraluminal mass or stone visualized. Gallbladder: Demonstrates no wall thickening or pericholecystic fluid. No stones visualized. Pancreas: The visualized portions are within normal limits Right Kidney: Normal echogenicity and cortical thickness. No mass or hydronephrosis. Left Kidney: Normal echogenicity and cortical thickness. No mass or hydronephrosis. Ascites: Minimal amount of ascites in the upper abdomen. Pleural Effusion: Small right pleural effusion. Spleen: No focal lesion. Aorta: Non aneurysmal. IVC: Within normal limits Other: None. CONCLUSION: 1. Small right pleural effusion and mild amount of ascites. 2. 2 focal lesions in the liver have uniform hyperechogenicity, suggestive of hemangiomata. Electronically signed by: Martín Haile MD Board Certified Radiologist 03/21/2018 5:37 PM EST
[2018-03-21] MEDS ORDERED: Propofol Inj 500 MG/50 ML Vial ONE (19:37)
[2018-03-21] MEDS ORDERED: Cisatracurium Inj 100 MG in Sodium Chlor 0.9% Inj 240 ML IV.CONT PRN (20:22)
[2018-03-21] MEDS: levETIRAcetam 1000mg/100mL Inj 100 ML IV.SIG SCH (20:45)
[2018-03-21] MEDS ORDERED: Fosphenytoin Inj 1,000 MGPE in Sodium Chlor 0.9% Inj 50 ML IV.SIG ONE (21:00)
[2018-03-21] MEDS: Propofol 1000 mg/100 ml Inj 1,000 MG/100 ML BOTTLE IV.CONT PRN (21:01)
[2018-03-21] MEDS: Midazolam 100 MG/100 ML Inj 100 MG/100 ML BAG IV.CONT PRN (21:02)
--- NOTE | 2018-03-21 21:42 | MG ---
cc: Ritesh Plata MD DATE OF STUDY: 03/21/2018 ELECTROENCEPHALOGRAM RECORD NUMBER: [id number] DESCRIPTION: Experienced significant electrical myogenic artifact occurring. Once that was removed, flat line appearance, some electrical artifact in a couple of the channels. Single-lead EKG showing sinus rhythm. INTERPRETATION: Flat line appearance in addition to portions of electrical artifact. This can be seen with severe diffuse cortical injury. Clinical correlation. MD YUSEF Durant/lynette , 08:57 PM , 09:02 PM
[2018-03-21] MEDS ORDERED: Sodium Bicarbonate 8.4% Inj 50 MEQ/50 ML Syringe IV.PUSH ONE (22:38)
[2018-03-21] MEDS ORDERED: Naloxone Inj 4 MG/10 ML MDV IV.PUSH ONE (22:38)
[2018-03-22] MEDS: Insulin NovoLOG Aspart Correctional Sugar Inj SQ SCH ×6 (00:28→16:19)
[2018-03-22] MEDS: Propofol 1000 mg/100 ml Inj 1,000 MG/100 ML BOTTLE IV.CONT PRN ×4 (01:11→22:11)
[2018-03-22] MEDS: fentaNYL 10 mcg/mL Premix Drip 2,500 MCG/250 ML BAG IV.SIG PRN (03:01)
[2018-03-22] MEDS ORDERED: Chlorhexidine Gluconate 2% 1 Pack (2 Cloths) TOPICAL PRN (04:00)
[2018-03-22] MEDS: Sodium Bicarbonate 8.4% Inj 150 MEQ in Dextrose 5% in Water Inj 850 ML IV.CONT SCH ×2 (04:29)
[2018-03-22 05:40] LABS: Baso % (Auto) 0.1 % (0.0-2.0); Eos % (Auto) 0.2 % (0.0-4.0); Hemoglobin 12.1 gm/dL (13.0-17.0); Lymph # (Auto) 0.9 th/mm3 (1.0-4.8); Lymph % (Auto) 7.1 % (9.0-44.0); Mean Corpuscular HGB Conc 35.6 % (32.0-36.0); Mean Corpuscular Hemoglobin 31.4 pg (27.0-34.0); Mean Corpuscular Volume 88.1 fL (80.0-100.0); Mean Platelet Volume 10.2 fL (7.0-11.0); Mono # (Auto) 0.5 th/mm3 (0.0-0.9); Neut # (Auto) 11.8 th/mm3 (1.8-7.7); Neut % (Auto) 88.6 % (16.0-70.0); Platelet Count 89 th/mm3 (150-450); Red Blood Count 3.86 mil/mm3 (4.50-5.90); Red Cell Distribution Width 13.5 % (11.6-17.2); White Blood Count 13.3 th/mm3 (4.0-11.0)
[2018-03-22 06:08] LABS: Albumin 2.4 g/dL (3.4-5.0); Carbon Dioxide 35.1 meq/L (21.0-32.0); Magnesium 1.6 mg/dL (1.5-2.5); Potassium 3.3 meq/L (3.5-5.1); Total Protein 4.9 g/dL (6.4-8.2)
[2018-03-22] MEDS: Chlorhexidine Gluconate 2% 1 Pack (2 Cloths) TOPICAL SCH (06:37)
[2018-03-22] MEDS: Hydrocortisone Sod Succinate 100 MG Vial IV.PUSH SCH ×3 (06:48→22:11)
[2018-03-22 07:21] LABS: Lymphocytes 2 % (9-44); Monocytes 1 % (0-8)
[2018-03-22 07:22] LABS: Platelet Morphology Normal (Normal); RBC Morphology Normal (Normal)
[2018-03-22] MEDS: Pantoprazole Inj 40 MG Vial IV.PUSH SCH (08:11)
[2018-03-22] MEDS: levETIRAcetam 1000mg/100mL Inj 100 ML IV.SIG SCH (08:17)
[2018-03-22] MEDS ORDERED: Vancomycin Consult Pharmacy OTHER PRN (08:22)
--- NOTE | 2018-03-22 08:22 | P.PNCC ---
Subjective Subjective Remarks/Hospital Course: Patient is a 37-year-old male with a past medical history of polysubstance abuse who presented to [facility] ED via EMSstatus post cardiopulmonary arrest. He was found unresponsive outside on the porch and when EMS arrived, the patient was found pulseless. CPR was initiated and the patient was in asystole followed by a PEA arrest. ACLS protocol was initiated , and the patient received epinephrine multiple times en route and bicarbonate. Combitube intubation was performed successfully. The patient arrived in the ED, while CPR was performed by EMS. On arrival, he was hypotensive with a systolic blood pressure in the 80s, hypothermic with a temperature of 84-85 degrees Fahrenheit. In the ED, he was given a 3 liter bolus of normal saline, intubated with 8.0 ET tube, and a right IJ central line was placed by ED physician. Also, he was started on Levophed, which is currently at 10 mcg. His laboratory data is significant for severe lactic acidosis with a lactic acid level of 19.5, acute renal failure with a creatinine of 2.42. In addition , the patient was hypoglycemic with a blood sugar of 45 on the CMP. Also, he has leukocytosis with a WBC of 15.6. Initial ABG on the ventilator showed severe respiratory and metabolic acidosis with a pH of 6.91, CO2 65, PaO2 348, bicarbonate of 12, saturations of 97%. Chest x-ray showed bilateral perihilar patchy airspace consolidation. A CT scan of the brain was obtained, which showed diffuse cerebral swelling with decreased size of the ventricles. The patient is unresponsive and not on any sedation. 03/22 Patient remains sedated and intubated, Tmax 103.1. Seizures overnight given Keppra and Cerebyx loading dose. EEG yesterday Flat line appearance in addition to portions of electrical artifact. severe diffuse cortical injury. On bicarb drip Objective Vital Signs / I&O: Vital Signs 03/21/18 07:52 03/21/18 07:55 03/21/18 08:29 Temperature Pulse Rate 81 Respiratory Rate 18 25 H Blood Pressure 113/66 Pulse Oximetry 100 100 99 03/21/18 09:26 03/21/18 09:36 03/21/18 09:59 Temperature 86.6 F L Pulse Rate 89 81 Respiratory Rate 26 H 28 H Blood Pressure 138/88 Pulse Oximetry 95 96 03/21/18 11:00 03/21/18 12:14 03/21/18 12:15 Temperature 89.2 F L Pulse Rate 88 89 Respiratory Rate 24 24 12 Blood Pressure 135/95 H Pulse Oximetry 100 100 03/21/18 14:17 03/21/18 15:00 03/21/18 16:45 Temperature 96.2 F L Pulse Rate 100 H 110 H Respiratory Rate 24 24 24 Blood Pressure 141/90 H Pulse Oximetry 99 100 100 03/21/18 20:00 03/21/18 20:15 03/22/18 00:00 Temperature 103.0 F H 103.1 F H Pulse Rate 143 H 127 H Respiratory Rate 30 H 23 25 H Blood Pressure 155/90 H 109/59 L Pulse Oximetry 97 98 97 03/22/18 02:51 03/22/18 03:32 03/22/18 04:00 Temperature 101.4 F H Pulse Rate 119 H 120 H Respiratory Rate 25 H 24 25 H Blood Pressure 102/55 L Pulse Oximetry 98 97 03/22/18 05:52 Temperature Pulse Rate 120 H Respiratory Rate Blood Pressure Pulse Oximetry Intake & Output 03/21/18 03/22/18 03/22/18 18:59 06:59 18:59 Intake Total 4600 / 4600 2920 / 2920 100 / 100 Output Total 1925 / 1925 1100 / 1100 Balance 2675 / 2675 1820 / 1820 100 / 100 Intake: IV 4600 / 4600 2920 / 2920 100 / 100 Diprivan 1000 mg/100 ml Inj 1, 200 / 200 000 mg In 100 ml @ 5 MCG/KG/MIN 2.858 mls/hr IV.CONT TITRATE PRN Rx#:[id number] Sodium Bicarbonate 8.4% Inj 150 1000 / 1000 2000 / 2000 MEQ In D5W Inj 850 ML @ 150 mls/hr IV.CONT .Q6H40M ANGIE Rx#: [id number] Ofirmev Inj 1,000 mg In 100 ml 100 / 100 100 / 100 @ 300 mls/hr IV.SIG Q6H PRN Rx# :[id number] Azactam Inj 1,000 MG In NS Inj 100 / 100 200 / 200 100 ML @ 200 mls/hr IV.SIG Q8H ANGEI Rx#:[id number] Cerebyx Inj 1,000 MGPE In NS 70 / 70 Inj 50 ML @ 280 mls/hr IV.SIG ONCE ONE Rx#:[id number] Levaquin 750 mg Premix Inj 150 150 / 150 ML @ 100 mls/hr IV.SIG ONCE ONE Rx#:[id number] KCl 40 mEq Premix Inj 40 meq In 100 / 100 100 ml @ 25 mls/hr IV.SIG ONCE ONE Rx#:[id number] NS Inj 1,000 ML @ Wide Open IV. 3000 / 3000 SIG .Q0M [facility] Rx#:[id number] Vancomycin Inj 1,000 MG In NS 250 / 250 Inj 250 ML @ 250 mls/hr IV.SIG ONCE ONE Rx#:[id number] fentaNYL 10 mcg/mL Premix Drip 250 / 250 2,500 mcg In 250 ml @ 50 MCG/HR 5 mls/hr IV.SIG TITRATE PRN Rx #:[id number] Keppra 1000 mg/100 mL Premix 100 / 100 100 ML @ 400 mls/hr IV.SIG Q12H [facility] Rx#:[id number] Oral 0 / 0 0 / 0 Output: Urine Amount (Catheter) 1924 / 1924 800 / 800 Indwelling Urethral Catheter 1924 / 192 800 / 800 Gastric Drainage 300 / 300 Left Nare 300 / 300 Other: # Bowel Movements 0 Result Diagrams: 03/22/18 05:15 03/22/18 05:15 Other Results: Laboratory Results - last 12 hr 03/22/18 03/22/18 03/22/18 00:35 05:15 05:15 WBC 13.3 H RBC 3.86 L Hgb 12.1 L Hct 34.0 L MCV 88.1 D MCH 31.4 MCHC 35.6 RDW 13.5 Plt Count 89 L D MPV 10.2 Prelim Diff (Auto) Slide review pending Neut % (Auto) 88.6 H Lymph % (Auto) 7.1 L [place] % (Auto) 4.0 Eos % (Auto) 0.2 Baso % (Auto) 0.1 Neut # (Auto) 11.8 H Lymph # (Auto) 0.9 L [place] # (Auto) 0.5 Eos # (Auto) 0.0 Baso # (Auto) 0.0 WBC Differential Manual diff final Seg Neuts % (Manual) 64 Band Neuts % (Manual) 33 H Lymphocytes % (Manual) 2 L Monocytes % (Manual) 1 Abs Neuts (Manual) 12.9 H Differential Comment . Platelet Estimate Low L Platelet Morphology Normal RBC Morphology Normal Sodium 140 Potassium 3.3 L Chloride 94 L Carbon Dioxide 35.1 H D Anion Gap 11 BUN 33 H Creatinine 3.18 H Estimated GFR 22 L POC Glucose 166 H Random Glucose 184 H Calcium 6.0 L* Calcium Adj for Albumin 7.3 L* Magnesium 1.6 D Total Bilirubin 3.0 H AST 915 H ALT 755 H Alkaline Phosphatase 67 Total Protein 4.9 L D Albumin 2.4 L 03/22/18 05:21 WBC RBC Hgb Hct MCV MCH MCHC RDW Plt Count MPV Prelim Diff (Auto) Neut % (Auto) Lymph % (Auto) [place] % (Auto) Eos % (Auto) Baso % (Auto) Neut # (Auto) Lymph # (Auto) [place] # (Auto) Eos # (Auto) Baso # (Auto) WBC Differential Seg Neuts % (Manual) Band Neuts % (Manual) Lymphocytes % (Manual) Monocytes % (Manual) Abs Neuts (Manual) Differential Comment Platelet Estimate Platelet Morphology RBC Morphology Sodium Potassium Chloride Carbon Dioxide Anion Gap BUN Creatinine Estimated GFR POC Glucose 198 H Random Glucose Calcium Calcium Adj for Albumin Magnesium Total Bilirubin AST ALT Alkaline Phosphatase Total Protein Albumin Imaging: Abdomen Ultrasound 03/21/18 00:00 CONCLUSION: 1. Small right pleural effusion and mild amount of ascites. 2. 2 focal lesions in the liver have uniform hyperechogenicity, suggestive of hemangiomata. Chest X-Ray 03/21/18 06:32 CONCLUSION: Lines and tubes appear appropriate in position. Bilateral perihilar patchy airspace consolidation is present. Pattern consistent with noncardiac pulmonary edema. Head CT 03/21/18 06:36 CONCLUSION: 1. There is evidence of diffuse cerebral swelling with decreased size of the ventricles as compared to the prior exam and poor visualization of the sulci as compared to the prior exam. . Objective Remarks: GENERAL: Patient is 37 yo intubated, sedated critically ill. SKIN: Warm and dry. HEAD: Normocephalic. EYES: Pupils 2 mm nonreactive no corneal reflex No scleral icterus. No injection or drainage. NECK: Supple, trachea midline. No JVD or lymphadenopathy. CARDIOVASCULAR: Regular rate and rhythm without murmurs, gallops, or rubs. RESPIRATORY: Breath sounds equal bilaterally. No accessory muscle use. GASTROINTESTINAL: Abdomen soft, non-tender, nondistended. MUSCULOSKELETAL: No cyanosis, or edema. Neuro: Sedated, intubated. No involuntary movements seen. no gag reflex, no flexion or withdrawal to tactile stimuli Assessment and Plan - Assessment and Plan Plan: 1. VDRF 2. s/p cardiopulmonary arrest. 3. Anoxic brain injury. 4. Aspiration pneumonia. 5. Polysubstance abuse UDS + amphetamines and opiates. 6. Lactic acidemia 7. Acute kidney injury. 8. Elevated liver enzymes. 9. Leukocytosis. 10. Anemia, thrombocytopenia Plan Neuro: On Diprivan, Versed and Fentnayl infusion for sedation. Daily sedation vacation. Given Cerebyx and Keppra overnight. On Keppra 1gram IV Q12 CT brain diffuse cerebral swelling. MRI brain: Symmetric and scattered areas of diffusion restriction in both cerebral hemispheres are probably secondary to an anoxic brain injury. Areas involved are the occiput, portions of the temporal and high parietal lobes bilaterally. No acute intracranial hemorrhage. EEG: Flat line appearance in addition to portions of electrical artifact, severe diffuse cortical injury Neuro is following. Cerebral flow study: Positive blood flow to the brain with mild brain activity. Pulm: Continue with vent support and maintain sats > 92%. Bronchodilators, ICU vent bundle. on stress dose steroids HC 100 mg IV Q8 CV: Monitor HR and BP keep MAP>65mmHg Serial lactic acid monitoring ( trending down) Patient was not a candidate for Code Cool due to hemodynamic instability, severe lactic acidemia, multiorgan injury, diffuse cerebral swelling on CT of brain and anoxic brain injury. For 2-D echo to evaluate LV function : Monitor renal function, intake and output, and avoid nephrotoxins. US abdomen: Small right pleural effusion and mild amount of ascites. 2 focal lesions in the liver have uniform hyperechogenicity, suggestive of hemangiomata. Renal function worse with Cr:3.18 from 2.08. UOP: 2725ml since yesterday Change bicarb drip to D5NS@100ml/hr. Renal eval. GI: on Pepcid for gastrointestinal prophylaxis. Monitor LFT's, Hepatitis profile: Hep C IgG ab reactive Tube feeds- Nepro with goal rate 40ml/hr ID: Continue abx( aztreonam, Vanco )Monitor for signs of infection( fever and WBC) Follow up on blood and sputum culture pending nasal washing screening for influenza is negative. Endo: SSI with Accu-Cheks every 4 hours. Heme: Monitor CBC. GI prophylaxis on Pepcid, DVT prophylaxis with SCD Palliative care consult to assist with goals of care. Lines: Right IJ central line was placed by ED physician. CCT 30 mins
--- NOTE | 2018-03-22 08:45 | ECHRPT ---
Indication: SYNCOPE CONCLUSIONS Normal left ventricular size. Wall thickness is normal. The left ventricular systolic function is normal with an estimated ejection fraction in the range of 60-65%. There is mild tricuspid valve regurgitation. The estimated pulmonary arterial pressure is 35.4 mmHg. BP: / HR: Rhythm: Sinus MEASUREMENTS (Male / Female) Normal Values Technical Quality:Fair 2D ECHO LV Diastolic Diameter PLAX 4.5 cm 4.2 - 5.9 / 3.9 - 5.3 cm LV Systolic Diameter PLAX 3.2 cm IVS Diastolic Thickness 0.8 cm 0.6 - 1.0 / 0.6 - 0.9 cm LVPW Diastolic Thickness 0.8 cm 0.6 - 1.0 / 0.6 - 0.9 cm LV Relative Wall Thickness 0.4 RV Internal Dim ED PLAX 2.2 cm LVOT Diameter 2.0 cm Aortic Root Diameter 3.0 cm LA Systolic Diameter LX 3.3 cm 3.0 - 4.0 / 2.7 - 3.8 cm M-MODE AV Cusp Separation MM 2.1 cm DOPPLER AV Peak Velocity 88.2 cm/s AV Peak Gradient 3.1 mmHg AV Mean Gradient 2.0 mmHg AV Velocity Time Integral 10.7 cm LVOT Peak Velocity 59.1 cm/s LVOT Peak Gradient 1.4 mmHg LVOT Velocity Time Integral 10.7 cm AV Area Cont Eq vti 3.1 cm AV Area Cont Eq pk 2.1 cm Mitral E Point Velocity 86.0 cm/s LV E' Lateral Velocity 4.0 cm/s Mitral E to LV E' Lateral Ratio 21.5 LV E' Septal Velocity 7.9 cm/s Mitral E to LV E' Septal Ratio 10.9 TR Peak Velocity 252.0 cm/s TR Peak Gradient 25.4 mmHg Right Atrial Pressure 10.0 mmHg Pulmonary Artery Systolic Pressu 35.4 mmHg Right Ventricular Systolic Press 35.4 mmHg PV Peak Velocity 42.9 cm/s PV Peak Gradient 0.7 mmHg FINDINGS LEFT VENTRICLE Normal left ventricular size. Wall thickness is normal. The left ventricular systolic function is normal with an estimated ejection fraction in the range of 60-65%. RIGHT VENTRICLE Normal right ventricular size and systolic function. LEFT ATRIUM The left atrial size is normal. RIGHT ATRIUM The right atrial size is normal. ATRIAL SEPTUM Normal atrial septal thickness without atrial level shunting by limited color doppler interrogation. AORTA The aortic root and proximal ascending aorta are normal in size on limited imaging. MITRAL VALVE Structurally normal mitral valve. No mitral valve stenosis or regurgitation. AORTIC VALVE Trileaflet aortic valve. No aortic valve stenosis or regurgitation. TRICUSPID VALVE There is mild tricuspid valve regurgitation. The estimated pulmonary arterial pressure is 35.4 mmHg. PULMONARY VALVE No pulmonary valve regurgitation or stenosis. VESSELS The inferior vena cava is normal in size. PERICARDIUM No pericardial effusion. Julia Montez MD (Electronically Signed) Final Date:22 March 2018 08:44
[2018-03-22] MEDS: Dextrose 5%/NaCl 0.9% Inj 1,000 ML IV.CONT SCH ×2 (09:31→22:00)
[2018-03-22 09:38] LABS: ABG Base Excess 13.5 mmol/L (-2-2); ABG PCO2 38 mmHg (38-42); ABG PO2 84 mmHG (61-120)
--- NOTE | 2018-03-22 11:29 | P.DIET ---
Nutritional Evaluation Type of nutrition evaluation: initial Nutrition consult regarding: Tube Feeding Screening comments: 03/22/18 TF review Objective - Diagnosis cardiopulmonary arrest w/ ROSC, anemia - Objective Body Mass Index: 27.7 % IBW: 114 (IBW = 184lb) Body Weight Used for Calculations: Actual (95kg) Energy Needs - Lower Range (kCal/kg): 22 Energy Needs - Upper Range (kCal/kg): 28 Lower Limit kCal/kg (kCals): 2,090 Upper Limit kCal/kg (kCals): 2,660 Lower Limit Protein Factor (Grams per Kg): 0.6 Upper Limit Protein Factor (Grams per Kg): 0.8 Lower Protein Needs (Protein): 57 Upper Protein Needs (Protein): 76 Dietitian Reviewed in Medical Record: Curent medications, Intake & Output, Labs , Medical history Diet Order: NPO Objective Comments: Meds: fentanyl, propofol Labs: BUN 33, Cr 3.18, estGRF 22, POC glucose 212 225, Ca+ 6.0 Assessment Assessment: Pt currently intubated, sedated, and on mech vent. Pt receiving TF of Nepro 1.8 @ 40mL/hr per MD. RD to recommend Suplena @ 55mL/hr to provide 2376kcal, 59g of protein, and 974mL of free water to best meet pts nutritional needs. Monitor for TF tolerance. Monitor glucose and renal labs. Labs reviewed, dietitian following. Recommendations: 1. RD to recommend Suplena @ 55mL/hr to best meet pts nutritional needs 2. Monitor for TF tolerance 3. Monitor glucose and renal labs 4. Dietitian following Dietitian to Monitor: Lab values, Renal labs, Glucose level, Intake & Output, Tube feeding tolerance, Weight change, Medical course
[2018-03-22 11:45] LABS: ABG Base Excess 11.8 mmol/L (-2-2); ABG PCO2 45 mmHg (38-42); ABG PO2 99 mmHG (61-120)
--- NOTE | 2018-03-22 11:51 | ECG ---
Date Performed: 03/21/2018 Time Performed: 06:33:03 PTAGE: 37 years EKG: ATRIAL FIBRILLATION UNDERLYING RHYTHM SHOWS PROLONGED QT INTERVAL AND MARKED ST CHANGES SUG GEST ELECTROLYTE ABNORMALITY CAN NOT EXCLUDE POSTERIOR INFARCTION Clinical correlation is recommended PREVIOUS TRACING 09-28-2017 01.44.03 DOCTOR: Henry Leblanc Interpretating Date/Time 03/22/2018 11:50:35
--- NOTE | 2018-03-22 12:18 | P.PNNEU ---
Subjective Subjective Comments: Apparently having involuntary movements with nurses were changing him in position that stopped after couple minutes. Active Medications: Active Medications Al Hydroxide/Mg Hydroxide (Milk Of Magntanisha Liq) 30 ml PO Q12H PRN PRN Reason: Mild Constipation Albuterol (Duoneb Neb (Prn)) 1 ampul NEB Q2HR NEB PRN PRN Reason: WHEEZING Albuterol (Duoneb Neb (Evan)) 1 ampul NEB Q4HR NEB EVAN Last Admin: 03/22/18 11:30 Dose: 1 ampul Bisacodyl (Dulcolax Supp) 10 mg RECTAL DAILY PRN PRN Reason: SEVERE CONSITIPATION Chlorhexidine Gluconate (Chlorhexidine 2% Cloth) 3 pack TOPICAL DAILY@0400 EVAN Stop: 03/27/18 03:59 Last Admin: 03/22/18 06:37 Dose: 3 pack Chlorhexidine Gluconate (Chlorhexidine 2% Cloth) 3 pack TOPICAL DAILY@0400 PRN PRN Reason: Extra cloth needed Stop: 03/27/18 03:59 Dextrose (D50w Vial) 50 ml IV.PUSH UNSCH PRN PRN Reason: PER HYPOGLYCEMIA PROTOCOL Glucagon (Glucagon Inj) 1 mg OTHER PRN PRN PRN Reason: for Hypoglycemia Protocol Hydrocortisone Sodium Succinate (Solucortef Inj) 100 mg IV.PUSH Q8HR EVAN Last Admin: 03/22/18 06:48 Dose: 100 mg Sodium Chloride (Ns Inj) 1,000 mls @ 0 mls/hr IV.SIG .Q0M EVAN Last Infusion: 03/21/18 07:40 Dose: Infused Sodium Chloride (Ns Inj) 1,000 mls @ 0 mls/hr IV.SIG .Q0M EVAN Last Infusion: 03/21/18 08:45 Dose: Infused Sodium Chloride (Ns Inj) 1,000 mls @ 0 mls/hr IV.SIG .Q0M EVAN Last Infusion: 03/21/18 09:00 Dose: Infused Norepinephrine Bitartrate (Levophed-Dextrose 4 Mg/250 Ml Drip) 4 mg in 250 mls @ 7.5 mls/hr IV.SIG TITRATE PRN; Protocol PRN Reason: Per Protocol Last Titration: 03/21/18 13:42 Dose: 0 mcg/min, 0 mls/hr Aztreonam 1,000 mg/ Sodium (Chloride) 100 mls @ 200 mls/hr IV.SIG Q8H [facility] Last Infusion: 03/22/18 11:55 Dose: Infused Fentanyl (Fentanyl 10 Mcg/Ml Premix Drip) 2,500 mcg in 250 mls @ 5 mls/hr IV.SIG TITRATE PRN; Protocol PRN Reason: Per Protocol Last Admin: 03/22/18 03:01 Dose: 150 mcg/hr, 15 mls/hr Propofol (Diprivan 1000 Mg/100 Ml Inj) 1,000 mg in 100 mls @ 2.858 mls/hr IV.CONT TITRATE PRN; Protocol PRN Reason: Per Protocol Last Admin: 03/22/18 08:10 Dose: 40 mcg/kg/min, 22.86 mls/hr Midazolam HCl (Versed Inj) 100 mg in 100 mls @ 2 mls/hr IV.CONT TITRATE PRN; Protocol PRN Reason: See protocol Last Admin: 03/21/18 21:02 Dose: 2 mg/hr, 2 mls/hr Levetiracetam (Keppra 1000 Mg/100 Ml Premix) 100 mls @ 400 mls/hr IV.SIG Q12H [facility] Last Infusion: 03/22/18 09:09 Dose: Infused Acetaminophen (Ofirmev Inj) 1,000 mg in 100 mls @ 300 mls/hr IV.SIG Q6H PRN PRN Reason: FEVER > 101 F Last Infusion: 03/22/18 07:43 Dose: Infused Dextrose/Sodium Chloride (D5w/Normal Saline Inj) 1,000 mls @ 100 mls/hr IV.CONT .Q10H EVAN Last Admin: 03/22/18 09:31 Dose: 100 mls/hr Vancomycin HCl 1,500 mg/ (Sodium Chloride) 515 mls @ 257.5 mls/hr IV.SIG ONCE ONE Stop: 03/22/18 14:59 Insulin Aspart (Novolog Insulin Correctional Sugar Inj) 0 unit SQ Q4HR EVAN; Protocol Last Admin: 03/22/18 12:08 Dose: 3 unit Lactulose (Lactulose Liq) 30 ml PO DAILY PRN PRN Reason: SEVERE CONSITIPATION Pantoprazole Sodium (Protonix Inj) 40 mg IV.PUSH DAILY [facility] Last Admin: 03/22/18 08:11 Dose: 40 mg Pharmacy Profile Note (Vancomycin Consult Pharmacy) 1 each OTHER UNSCH PRN PRN Reason: Pharmacy to dose Sennosides (Senokot) 17.2 mg PO Q12H PRN PRN Reason: Moderate Constipation Sodium Chloride (Ns Flush) 2 ml IV.FLUSH BID EVAN Last Admin: 03/22/18 10:14 Dose: 2 ml Sodium Chloride (Ns Flush) 2 ml IV.FLUSH PRN PRN PRN Reason: FLUSH AFTER USING IV ACCESS Terbutaline Sulfate (Brethine Inj) 1 mg SQ UNSCH PRN PRN Reason: For Extravasation Allergies/Adverse Reactions: Allergies Allergy/AdvReac Type Severity Reaction Status Date / Time No Allergy Information Allergy Verified 03/21/18 06:25 Available Review of Systems unobtainable due to endotracheal tube, unobtainable due to mental status Physical Exam Vital signs: Vital Signs 03/21/18 14:17 03/21/18 15:00 03/21/18 16:45 Temperature 96.2 F L Pulse Rate 100 H 110 H Respiratory Rate 24 24 24 Blood Pressure 141/90 H Pulse Oximetry 99 100 100 03/21/18 20:00 03/21/18 20:15 03/22/18 00:00 Temperature 103.0 F H 103.1 F H Pulse Rate 143 H 127 H Respiratory Rate 30 H 23 25 H Blood Pressure 155/90 H 109/59 L Pulse Oximetry 97 98 97 03/22/18 02:51 03/22/18 03:32 03/22/18 04:00 Temperature 101.4 F H Pulse Rate 119 H 120 H Respiratory Rate 25 H 24 25 H Blood Pressure 102/55 L Pulse Oximetry 98 97 03/22/18 05:52 03/22/18 07:00 03/22/18 08:01 Temperature 99.4 F Pulse Rate 120 H 111 H 111 H Respiratory Rate 24 24 Blood Pressure 87/54 L Pulse Oximetry 99 99 03/22/18 10:03 03/22/18 10:53 03/22/18 11:30 Temperature 98.5 F Pulse Rate 106 H 106 H Respiratory Rate 21 20 20 Blood Pressure 84/47 L Pulse Oximetry 94 L 99 Intake & Output 03/21/18 03/22/18 03/22/18 18:59 06:59 18:59 Intake Total 4600 / 4600 2920 / 2920 1000 / 1000 Output Total 1925 / 1925 1100 / 1100 Balance 2675 / 2675 1820 / 1820 1000 / 1000 Intake: IV 4600 / 4600 2920 / 2920 1000 / 1000 Diprivan 1000 mg/100 ml Inj 1, 200 / 200 100 / 100 000 mg In 100 ml @ 5 MCG/KG/MIN 2.858 mls/hr IV.CONT TITRATE PRN Rx#:[id number] Sodium Bicarbonate 8.4% Inj 150 1000 / 1000 2000 / 1999 600 / 600 MEQ In D5W Inj 850 ML @ 150 mls/hr IV.CONT .Q6H40M [facility] Rx#: [id number] Ofirmev Inj 1,000 mg In 100 ml 100 / 100 100 / 100 @ 300 mls/hr IV.SIG Q6H PRN Rx# :[id number] Azactam Inj 1,000 MG In NS Inj 100 / 100 200 / 200 100 / 100 100 ML @ 200 mls/hr IV.SIG Q8H [facility] Rx#:[id number] Cerebyx Inj 1,000 MGPE In NS 70 / 70 Inj 50 ML @ 280 mls/hr IV.SIG ONCE ONE Rx#:[id number] Levaquin 750 mg Premix Inj 150 150 / 150 ML @ 100 mls/hr IV.SIG ONCE ONE Rx#:[id number] KCl 40 mEq Premix Inj 40 meq In 100 / 100 100 ml @ 25 mls/hr IV.SIG ONCE ONE Rx#:[id number] NS Inj 1,000 ML @ Wide Open IV. 3000 / 3000 SIG .Q0M [facility] Rx#:[id number] Vancomycin Inj 1,000 MG In NS 250 / 250 Inj 250 ML @ 250 mls/hr IV.SIG ONCE ONE Rx#:[id number] fentaNYL 10 mcg/mL Premix Drip 250 / 250 2,500 mcg In 250 ml @ 50 MCG/HR 5 mls/hr IV.SIG TITRATE PRN Rx #:[id number] Keppra 1000 mg/100 mL Premix 100 / 100 100 / 100 100 ML @ 400 mls/hr IV.SIG Q12H [facility] Rx#:[id number] Oral 0 / 0 0 / 0 Output: Urine Amount (Catheter) 1924 800 / 800 Indwelling Urethral Catheter 1924 800 / 800 Gastric Drainage 300 / 300 Left Nare 300 / 300 Other: # Bowel Movements 0 Narrative: Intubated on Versed. Nonverbal not following comatose state. No involuntary movements seen. Pupils approximately 2 mm nonreactive no corneal reflex impaired oculocephalic reflex. Cold calorics performed no response no current gag reflex no flexion or withdrawal to tactile stimuli plantarflexion no clonus - Constitutional no acute distress - Urinary Catheter Management Indwelling Urethral Catheter Cath placed during this visit: yes Reason for continuing: Hourly intake/output Insertion date: 03/21/18 Insertion time: 06:00 Objective Laboratory Results - last 24 hr 03/21/18 03/21/18 03/21/18 12:00 12:00 13:30 WBC RBC Hgb Hct MCV MCH MCHC RDW Plt Count MPV Prelim Diff (Auto) Neut % (Auto) Lymph % (Auto) [place] % (Auto) Eos % (Auto) Baso % (Auto) Neut # (Auto) Lymph # (Auto) [place] # (Auto) Eos # (Auto) Baso # (Auto) WBC Differential Seg Neuts % (Manual) Band Neuts % (Manual) Lymphocytes % (Manual) Monocytes % (Manual) Abs Neuts (Manual) Differential Comment Platelet Estimate Platelet Morphology RBC Morphology Puncture Site Patient Temperature O2 Saturation ABG pH ABG pCO2 ABG pO2 ABG HCO3 ABG O2 Content ABG Base Excess ABG Methemoglobin Humberto Test Hemoglobin Carboxyhemoglobin O2 Delivery Device Liter Flow Vent Setting Inspired O2 Critical Value Sodium 139 Potassium 3.1 L D Chloride 98 Carbon Dioxide 25.2 Anion Gap 16 H BUN 27 H Creatinine 2.08 H Estimated GFR 36 L POC Glucose 196 H Random Glucose 181 H D Lactic Acid 6.7 H* Calcium 6.6 L* D Calcium Adj for Albumin 7.5 L Magnesium Total Bilirubin 3.3 H AST 1052 H ALT 745 H Alkaline Phosphatase 127 H Total Protein 5.7 L Albumin 2.9 L Random Vancomycin 03/21/18 03/22/18 03/22/18 17:48 00:35 05:15 WBC 13.3 H RBC 3.86 L Hgb 12.1 L Hct 34.0 L MCV 88.1 D MCH 31.4 MCHC 35.6 RDW 13.5 Plt Count 89 L D MPV 10.2 Prelim Diff (Auto) Slide review pending Neut % (Auto) 88.6 H Lymph % (Auto) 7.1 L [place] % (Auto) 4.0 Eos % (Auto) 0.2 Baso % (Auto) 0.1 Neut # (Auto) 11.8 H Lymph # (Auto) 0.9 L [place] # (Auto) 0.5 Eos # (Auto) 0.0 Baso # (Auto) 0.0 WBC Differential Manual diff final Seg Neuts % (Manual) 64 Band Neuts % (Manual) 33 H Lymphocytes % (Manual) 2 L Monocytes % (Manual) 1 Abs Neuts (Manual) 12.9 H Differential Comment . Platelet Estimate Low L Platelet Morphology Normal RBC Morphology Normal Puncture Site Patient Temperature O2 Saturation ABG pH ABG pCO2 ABG pO2 ABG HCO3 ABG O2 Content ABG Base Excess ABG Methemoglobin Humberto Test Hemoglobin Carboxyhemoglobin O2 Delivery Device Liter Flow Vent Setting Inspired O2 Critical Value Sodium Potassium Chloride Carbon Dioxide Anion Gap BUN Creatinine Estimated GFR POC Glucose 212 H 166 H Random Glucose Lactic Acid Calcium Calcium Adj for Albumin Magnesium Total Bilirubin AST ALT Alkaline Phosphatase Total Protein Albumin Random Vancomycin 03/22/18 03/22/18 03/22/18 05:15 05:21 07:52 WBC RBC Hgb Hct MCV MCH MCHC RDW Plt Count MPV Prelim Diff (Auto) Neut % (Auto) Lymph % (Auto) [place] % (Auto) Eos % (Auto) Baso % (Auto) Neut # (Auto) Lymph # (Auto) [place] # (Auto) Eos # (Auto) Baso # (Auto) WBC Differential Seg Neuts % (Manual) Band Neuts % (Manual) Lymphocytes % (Manual) Monocytes % (Manual) Abs Neuts (Manual) Differential Comment Platelet Estimate Platelet Morphology RBC Morphology Puncture Site Patient Temperature O2 Saturation ABG pH ABG pCO2 ABG pO2 ABG HCO3 ABG O2 Content ABG Base Excess ABG Methemoglobin Humberto Test Hemoglobin Carboxyhemoglobin O2 Delivery Device Liter Flow Vent Setting Inspired O2 Critical Value Sodium 140 Potassium 3.3 L Chloride 94 L Carbon Dioxide 35.1 H D Anion Gap 11 BUN 33 H Creatinine 3.18 H Estimated GFR 22 L POC Glucose 198 H 225 H Random Glucose 184 H Lactic Acid Calcium 6.0 L* Calcium Adj for Albumin 7.3 L* Magnesium 1.6 D Total Bilirubin 3.0 H AST 915 H ALT 755 H Alkaline Phosphatase 67 Total Protein 4.9 L D Albumin 2.4 L Random Vancomycin 03/22/18 03/22/18 03/22/18 09:23 09:45 09:45 WBC RBC Hgb Hct MCV MCH MCHC RDW Plt Count MPV Prelim Diff (Auto) Neut % (Auto) Lymph % (Auto) [place] % (Auto) Eos % (Auto) Baso % (Auto) Neut # (Auto) Lymph # (Auto) [place] # (Auto) Eos # (Auto) Baso # (Auto) WBC Differential Seg Neuts % (Manual) Band Neuts % (Manual) Lymphocytes % (Manual) Monocytes % (Manual) Abs Neuts (Manual) Differential Comment Platelet Estimate Platelet Morphology RBC Morphology Puncture Site Right radial Patient Temperature 98.6 O2 Saturation 95 ABG pH 7.59 H* ABG pCO2 38 ABG pO2 84 ABG HCO3 37 H ABG O2 Content 15.0 ABG Base Excess 13.5 H ABG Methemoglobin 1.9 Humberto Test + Hemoglobin 11.1 L Carboxyhemoglobin 0.8 O2 Delivery Device Ventilator Liter Flow Vent Setting See comments Inspired O2 40 Critical Value Yes Sodium Potassium Chloride Carbon Dioxide Anion Gap BUN Creatinine Estimated GFR POC Glucose Random Glucose Lactic Acid 3.8 H Calcium Calcium Adj for Albumin Magnesium Total Bilirubin AST ALT Alkaline Phosphatase Total Protein Albumin Random Vancomycin 5.7 03/22/18 03/22/18 11:33 12:04 WBC RBC Hgb Hct MCV MCH MCHC RDW Plt Count MPV Prelim Diff (Auto) Neut % (Auto) Lymph % (Auto) [place] % (Auto) Eos % (Auto) Baso % (Auto) Neut # (Auto) Lymph # (Auto) [place] # (Auto) Eos # (Auto) Baso # (Auto) WBC Differential Seg Neuts % (Manual) Band Neuts % (Manual) Lymphocytes % (Manual) Monocytes % (Manual) Abs Neuts (Manual) Differential Comment Platelet Estimate Platelet Morphology RBC Morphology Puncture Site Right radial Patient Temperature 98.6 O2 Saturation 96 ABG pH 7.51 H* ABG pCO2 45 H ABG pO2 99 ABG HCO3 36 H ABG O2 Content 16.4 ABG Base Excess 11.8 H ABG Methemoglobin 1.9 Humberto Test + Hemoglobin 12.1 Carboxyhemoglobin 0.5 O2 Delivery Device Ventilator Liter Flow Vent Setting See comments Inspired O2 40 Critical Value Yes Sodium Potassium Chloride Carbon Dioxide Anion Gap BUN Creatinine Estimated GFR POC Glucose 203 H Random Glucose Lactic Acid Calcium Calcium Adj for Albumin Magnesium Total Bilirubin AST ALT Alkaline Phosphatase Total Protein Albumin Random Vancomycin Microbiology 03/21/18 12:50 Gram Stain - Final Sputum - Endotracheal Sputum Culture - Preliminary Moderate growth normal respiratory claudy at 24 hours 03/21/18 06:40 Aerobic Blood Culture - Preliminary Blood - Peripheral Anaerobic Blood Culture - Preliminary No growth in 1 day 03/21/18 06:30 Aerobic Blood Culture - Preliminary Blood - Line gram positive cocci Anaerobic Blood Culture - Preliminary No growth in 1 day 03/21/18 06:45 Aerobic Blood Culture - Preliminary Blood - Peripheral Anaerobic Blood Culture - Preliminary No growth in 1 day 03/21/18 06:35 Aerobic Blood Culture - Preliminary Blood - Line Anaerobic Blood Culture - Preliminary No growth in 1 day 03/21/18 06:10 Influenza Types A,B Antigen - Final Nasal Wash Negative for FLU A and B antigen Infection due to influenza A or B cannot be ruled out since the antigen present in the sample may be below the detection limit of the test. Review/Management - Diagnosis (1) Anoxic encephalopathy Code(s): G93.1 - Anoxic brain damage, not elsewhere classified Status: Acute Current Visit: Yes (2) PEA (Pulseless electrical activity) Code(s): I46.9 - Cardiac arrest, cause unspecified Status: Acute Current Visit: Yes - Review/Management Plan: Severe cortical and brainstem injury Absence of brainstem reflexes Hypoxic related myoclonus, tremulousness nonepileptic Recommendation Neuro unchanged Follow-up EEG; show flat line. 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
--- NOTE | 2018-03-22 12:26 | P.CONNP ---
History of Present Illness Service: Nephrology Consult date: 03/22/18 Requesting Physician: Karissa Pepe Reason for Consult: Acute renal failure Primary Care Provider: UNKNOWN History of Present Illness: Patient is a 37-year-old male with suspected drug overdose who was found unresponsive, and cardiopulmonary arrest or unknown. Of time, he was resuscitated in the field currently intubated he has minimal response to treatment and remains comatose, unresponsive, he is passing dark colored urine and has acute renal failure. Creatinine 3.18 Review of Systems unobtainable due to mental status PMFSH - History History Provided By: Attendant Child Activity / EMT - Medical History Medical History: Medical History (Last Reviewed 03/22/18 @ 12:21 by Jim Tamez MD) Patient denies medical problems - Surgical History Surgical History: Surgical History (Last Reviewed 03/22/18 @ 12:21 by Jim Tamez MD) No history of previous surgery - Tobacco History Second Hand Smoke Exposure: Yes Smoking Status: Unknown if ever smoked Tobacco Type: Cigarettes - Alcohol History How Often Do You Have a Drink Containing Alcohol: Unable to Obtain - Substance Use History Substance History: Unable to Obtain - Immunization History Tetanus Immunization: Unsure Medications and Allergies Active Medications: Active Medications Al Hydroxide/Mg Hydroxide (Milk Of Magntanisha Liq) 30 ml PO Q12H PRN PRN Reason: Mild Constipation Albuterol (Duoneb Neb (Prn)) 1 ampul NEB Q2HR NEB PRN PRN Reason: WHEEZING Albuterol (Duoneb Neb (Evan)) 1 ampul NEB Q4HR NEB EVAN Last Admin: 03/22/18 11:30 Dose: 1 ampul Bisacodyl (Dulcolax Supp) 10 mg RECTAL DAILY PRN PRN Reason: SEVERE CONSITIPATION Chlorhexidine Gluconate (Chlorhexidine 2% Cloth) 3 pack TOPICAL DAILY@0400 EVAN Stop: 03/27/18 03:59 Last Admin: 03/22/18 06:37 Dose: 3 pack Chlorhexidine Gluconate (Chlorhexidine 2% Cloth) 3 pack TOPICAL DAILY@0400 PRN PRN Reason: Extra cloth needed Stop: 03/27/18 03:59 Dextrose (D50w Vial) 50 ml IV.PUSH UNSCH PRN PRN Reason: PER HYPOGLYCEMIA PROTOCOL Glucagon (Glucagon Inj) 1 mg OTHER PRN PRN PRN Reason: for Hypoglycemia Protocol Hydrocortisone Sodium Succinate (Solucortef Inj) 100 mg IV.PUSH Q8HR [facility] Last Admin: 03/22/18 06:48 Dose: 100 mg Sodium Chloride (Ns Inj) 1,000 mls @ 0 mls/hr IV.SIG .Q0M EVAN Last Infusion: 03/21/18 07:40 Dose: Infused Sodium Chloride (Ns Inj) 1,000 mls @ 0 mls/hr IV.SIG .Q0M [facility] Last Infusion: 03/21/18 08:45 Dose: Infused Sodium Chloride (Ns Inj) 1,000 mls @ 0 mls/hr IV.SIG .Q0M [facility] Last Infusion: 03/21/18 09:00 Dose: Infused Norepinephrine Bitartrate (Levophed-Dextrose 4 Mg/250 Ml Drip) 4 mg in 250 mls @ 7.5 mls/hr IV.SIG TITRATE PRN; Protocol PRN Reason: Per Protocol Last Titration: 03/21/18 13:42 Dose: 0 mcg/min, 0 mls/hr Aztreonam 1,000 mg/ Sodium (Chloride) 100 mls @ 200 mls/hr IV.SIG Q8H [facility] Last Infusion: 03/22/18 11:55 Dose: Infused Fentanyl (Fentanyl 10 Mcg/Ml Premix Drip) 2,500 mcg in 250 mls @ 5 mls/hr IV.SIG TITRATE PRN; Protocol PRN Reason: Per Protocol Last Admin: 03/22/18 03:01 Dose: 150 mcg/hr, 15 mls/hr Propofol (Diprivan 1000 Mg/100 Ml Inj) 1,000 mg in 100 mls @ 2.858 mls/hr IV.CONT TITRATE PRN; Protocol PRN Reason: Per Protocol Last Admin: 03/22/18 08:10 Dose: 40 mcg/kg/min, 22.86 mls/hr Midazolam HCl (Versed Inj) 100 mg in 100 mls @ 2 mls/hr IV.CONT TITRATE PRN; Protocol PRN Reason: See protocol Last Admin: 03/21/18 21:02 Dose: 2 mg/hr, 2 mls/hr Levetiracetam (Keppra 1000 Mg/100 Ml Premix) 100 mls @ 400 mls/hr IV.SIG Q12H [facility] Last Infusion: 03/22/18 09:09 Dose: Infused Acetaminophen (Ofirmev Inj) 1,000 mg in 100 mls @ 300 mls/hr IV.SIG Q6H PRN PRN Reason: FEVER > 101 F Last Infusion: 03/22/18 07:43 Dose: Infused Dextrose/Sodium Chloride (D5w/Normal Saline Inj) 1,000 mls @ 100 mls/hr IV.CONT .Q10H [facility] Last Admin: 03/22/18 09:31 Dose: 100 mls/hr Vancomycin HCl 1,500 mg/ (Sodium Chloride) 515 mls @ 257.5 mls/hr IV.SIG ONCE ONE Stop: 03/22/18 14:59 Insulin Aspart (Novolog Insulin Correctional Sugar Inj) 0 unit SQ Q4HR [facility]; Protocol Last Admin: 03/22/18 12:08 Dose: 3 unit Lactulose (Lactulose Liq) 30 ml PO DAILY PRN PRN Reason: SEVERE CONSITIPATION Pantoprazole Sodium (Protonix Inj) 40 mg IV.PUSH DAILY [facility] Last Admin: 03/22/18 08:11 Dose: 40 mg Pharmacy Profile Note (Vancomycin Consult Pharmacy) 1 each OTHER UNSCH PRN PRN Reason: Pharmacy to dose Sennosides (Senokot) 17.2 mg PO Q12H PRN PRN Reason: Moderate Constipation Sodium Chloride (Ns Flush) 2 ml IV.FLUSH BID [facility] Last Admin: 03/22/18 10:14 Dose: 2 ml Sodium Chloride (Ns Flush) 2 ml IV.FLUSH PRN PRN PRN Reason: FLUSH AFTER USING IV ACCESS Terbutaline Sulfate (Brethine Inj) 1 mg SQ UNSCH PRN PRN Reason: For Extravasation Allergies Allergy/AdvReac Type Severity Reaction Status Date / Time No Allergy Information Allergy Verified 03/21/18 06:25 Available Home Medications Medication Instructions Recorded Confirmed Type Unable to Obtain Home Meds 03/21/18 03/21/18 History Exam Vital signs: Vital Signs 03/21/18 14:17 03/21/18 15:00 03/21/18 16:45 Temperature 96.2 F L Pulse Rate 100 H 110 H Respiratory Rate 24 24 24 Blood Pressure 141/90 H Pulse Oximetry 99 100 100 03/21/18 20:00 03/21/18 20:15 03/22/18 00:00 Temperature 103.0 F H 103.1 F H Pulse Rate 143 H 127 H Respiratory Rate 30 H 23 25 H Blood Pressure 155/90 H 109/59 L Pulse Oximetry 97 98 97 03/22/18 02:51 03/22/18 03:32 03/22/18 04:00 Temperature 101.4 F H Pulse Rate 119 H 120 H Respiratory Rate 25 H 24 25 H Blood Pressure 102/55 L Pulse Oximetry 98 97 03/22/18 05:52 03/22/18 07:00 03/22/18 08:01 Temperature 99.4 F Pulse Rate 120 H 111 H 111 H Respiratory Rate 24 24 Blood Pressure 87/54 L Pulse Oximetry 99 99 03/22/18 10:03 03/22/18 10:53 03/22/18 11:30 Temperature 98.5 F Pulse Rate 106 H 106 H Respiratory Rate 21 20 20 Blood Pressure 84/47 L Pulse Oximetry 94 L 99 Intake & Output 03/21/18 03/22/18 03/22/18 18:59 06:59 18:59 Intake Total 4600 / 4600 2920 / 2920 1000 / 1000 Output Total 1925 / 1925 1100 / 1100 Balance 2675 / 2675 1820 / 1820 1000 / 1000 Intake: IV 4600 / 4600 2920 / 2920 1000 / 1000 Diprivan 1000 mg/100 ml Inj 1, 200 / 200 100 / 100 000 mg In 100 ml @ 5 MCG/KG/MIN 2.858 mls/hr IV.CONT TITRATE PRN Rx#:[id number] Sodium Bicarbonate 8.4% Inj 150 1000 / 1000 2000 / 2000 600 / 600 MEQ In D5W Inj 850 ML @ 150 mls/hr IV.CONT .Q6H40M [facility] Rx#: [id number] Ofirmev Inj 1,000 mg In 100 ml 100 / 100 100 / 100 @ 300 mls/hr IV.SIG Q6H PRN Rx# :[id number] Azactam Inj 1,000 MG In NS Inj 100 / 100 200 / 200 100 / 100 100 ML @ 200 mls/hr IV.SIG Q8H [facility] Rx#:[id number] Cerebyx Inj 1,000 MGPE In NS 70 / 70 Inj 50 ML @ 280 mls/hr IV.SIG ONCE ONE Rx#:[id number] Levaquin 750 mg Premix Inj 150 150 / 150 ML @ 100 mls/hr IV.SIG ONCE ONE Rx#:[id number] KCl 40 mEq Premix Inj 40 meq In 100 / 100 100 ml @ 25 mls/hr IV.SIG ONCE ONE Rx#:[id number] NS Inj 1,000 ML @ Wide Open IV. 3000 / 3000 SIG .Q0M [facility] Rx#:[id number] Vancomycin Inj 1,000 MG In NS 250 / 250 Inj 250 ML @ 250 mls/hr IV.SIG ONCE ONE Rx#:[id number] fentaNYL 10 mcg/mL Premix Drip 250 / 250 2,500 mcg In 250 ml @ 50 MCG/HR 5 mls/hr IV.SIG TITRATE PRN Rx #:[id number] Keppra 1000 mg/100 mL Premix 100 / 100 100 / 100 100 ML @ 400 mls/hr IV.SIG Q12H [facility] Rx#:[id number] Oral 0 / 0 0 / 0 Output: Urine Amount (Catheter) 1924 800 / 800 Indwelling Urethral Catheter 1924 800 / 800 Gastric Drainage 300 / 300 Left Nare 300 / 300 Other: # Bowel Movements 0 Narrative: GENERAL: Well-nourished, well-developed, patient is comatose and intubated patient. SKIN: Cold and dry. HEAD: Normocephalic. EYES: No scleral icterus. No injection or drainage. NECK: Supple, trachea midline. No JVD intubated CARDIOVASCULAR: Regular rate and rhythm without murmurs, gallops, or rubs. RESPIRATORY: Breath sounds equal bilaterally. No accessory muscle use. GASTROINTESTINAL: Abdomen soft, non-tender, nondistended. EXTREMITIES: Cold no edema NEUROLOGICAL: Unresponsive and comatose Results - Lab Results 03/22/18 05:15 03/22/18 05:15 Most recent lab results ABG pH 7.51 (7.380-7.420) H* 03/22/18 11:33 ABG pCO2 45 mmHg (38-42) H 03/22/18 11:33 ABG pO2 99 mmHG (61-120) 03/22/18 11:33 ABG HCO3 36 mmol/L (22-26) H 03/22/18 11:33 Calcium 6.0 mg/dL (8.5-10.1) L* 03/22/18 05:15 Magnesium 1.6 mg/dL (1.5-2.5) D 03/22/18 05:15 Assessment and Plan - Assessment (1) Acute renal failure Code(s): N17.9 - Acute kidney failure, unspecified Status: Acute Plan: Acute renal failure most likely due to acute tubular necrosis and underlying rhabdomyolysis Continue supportive care Patient has poor response He is going to have a nuclear brain scan to determine brain He has poor urine output continue supportive care Long-term prognosis is very poor and bleak Maintain hydration Avoid nephrotoxic agent Follow CPK Follow BMP He had initial mild hypokalemia we will continue to observe (2) Anoxic encephalopathy Code(s): G93.1 - Anoxic brain damage, not elsewhere classified Status: Acute (3) PEA (Pulseless electrical activity) Code(s): I46.9 - Cardiac arrest, cause unspecified Status: Acute
--- NOTE | 2018-03-22 12:49 | NM ---
EXAM DATE: 03/22/2018 12:44 PM EST AGE/SEX: 37 years / Male INDICATIONS: Cardiopulmonary arrest. Polysubstance abuse. Brain . CLINICAL DATA: This is the patient's initial encounter. Patient reports that signs and symptoms have been present for 1 day and indicates a pain score of 0/10. MEDICAL/SURGICAL HISTORY: Non-responsive. Non-responsive. COMPARISON: [facility] – [place], CT HEAD W/O CONTRAST, 03/21/2018. . No external comparison. TECHNIQUE: Anterior dynamic imaging as well as delayed static imaging. DOSE: 24.5 mCi Tc99m DTPA IV The diagnosis of brain is clinical and the results of this test should be taken in the content of clinical and electrocephalographic data. FINDINGS: Imaging of the brain is positive for minimal brain activity. Flow is identified within the superior s agittal sinus. CONCLUSION: 1. There is positive blood flow to the brain with mild brain activity. Electronically signed by: Vicky Curtis MD Board Certified Radiologist 03/22/2018 12:47 PM LORI Santo
[2018-03-22] MEDS ORDERED: Vancomycin Inj 1,500 MG in Sodium Chlor 0.9% Inj 500 ML IV.SIG ONE (13:00)
--- NOTE | 2018-03-22 13:20 | MR ---
EXAM DATE: 03/22/2018 12:56 PM EST AGE/SEX: 37 years / Male INDICATIONS: CVA. Unresponsive. CLINICAL DATA: This is the patient's initial encounter. Patient reports that signs and symptoms have been present for 1 day and indicates a pain score of 0/10. MEDICAL/SURGICAL HISTORY: . IVDA. None. COMPARISON: [facility] [place]/O [place]AST, 03/21/2018. . TECHNIQUE: Multiplanar, multisequence examination of the brain was performed without contrast. FINDINGS: Cerebrum: The ventricles are normal for age. No evidence of midline shift, mass lesion or hemorrhag e. There is some diffusion restriction identified in portions of the temporal and parietal lobes as w ell as the occiput. No extraaxial fluid collections are seen. The pituitary gland and suprasellar c istern are normal in configuration. White Matter: No significant signal abnormalities are seen in the white matter. Posterior Fossa: The cerebellum and brainstem are intact. The 4th ventricle is midline. The cerebel lopontine angle is unremarkable. Cerebellar tonsils are positioned approximately 4.9 mm below the for amen magnum. Diffusion Imaging: Symmetric diffusion restriction in the occiput, portions of the temporal and neyda etal lobes bilaterally. Extracranial: The visualized portions of the orbits and paranasal sinuses are unremarkable. CONCLUSION: 1. Symmetric and scattered areas of diffusion restriction in both cerebral hemispheres are probably secondary to an anoxic brain injury. Areas involved are the occiput, portions of the temporal and hig h parietal lobes bilaterally. 2. No acute intracranial hemorrhage. 3. Cerebellar tonsillar ectopia. Electronically signed by: Corona Flores MD Board Certified Radiologist 03/22/2018 1:18 PM EST
[2018-03-22 15:59] LABS: CKMB Percent 0.3 % (0.0-4.0); Creatine Kinase MB 13.6 ng/mL (0.5-3.6)
[2018-03-23] MEDS: Insulin NovoLOG Aspart Correctional Sugar Inj SQ SCH ×7 (01:26→21:02)
[2018-03-23] MEDS: Hydrocortisone Sod Succinate 100 MG Vial IV.PUSH SCH ×3 (05:00→21:35)
[2018-03-23] MEDS: Chlorhexidine Gluconate 2% 1 Pack (2 Cloths) TOPICAL SCH (05:00)
[2018-03-23 05:13] LABS: Baso % (Auto) 0.2 % (0.0-2.0); Hematocrit 29.3 % (39.0-51.0); Hemoglobin 10.3 gm/dL (13.0-17.0); Lymph # (Auto) 0.8 th/mm3 (1.0-4.8); Lymph % (Auto) 6.2 % (9.0-44.0); Mean Corpuscular HGB Conc 35.2 % (32.0-36.0); Mean Corpuscular Volume 88.2 fL (80.0-100.0); Mono # (Auto) 0.5 th/mm3 (0.0-0.9); Neut # (Auto) 11.7 th/mm3 (1.8-7.7); Neut % (Auto) 89.6 % (16.0-70.0); Platelet Count 71 th/mm3 (150-450); Red Blood Count 3.33 mil/mm3 (4.50-5.90); Red Cell Distribution Width 13.5 % (11.6-17.2)
[2018-03-23 05:44] LABS: Albumin 2.2 g/dL (3.4-5.0); Carbon Dioxide 34.8 meq/L (21.0-32.0); Total Protein 4.9 g/dL (6.4-8.2); Vancomycin,Random 18.1 Comment
[2018-03-23 05:46] LABS: Potassium 2.9 meq/L (3.5-5.1)
[2018-03-23] MEDS: Dextrose 5%/NaCl 0.9% Inj 1,000 ML IV.CONT SCH ×2 (06:32→15:51)
[2018-03-23] MEDS: fentaNYL 10 mcg/mL Premix Drip 2,500 MCG/250 ML BAG IV.SIG PRN (06:32)
[2018-03-23] MEDS: Propofol 1000 mg/100 ml Inj 1,000 MG/100 ML BOTTLE IV.CONT PRN ×2 (07:41→15:49)
[2018-03-23] MEDS: Potassium Chlor 40 mEq Premix 40 MEQ/100 ML PIGGYBACK IV.SIG SCH ×2 (07:42→12:19)
[2018-03-23] MEDS: Pantoprazole Inj 40 MG Vial IV.PUSH SCH (08:50)
--- NOTE | 2018-03-23 08:56 | P.PNCC ---
Subjective Subjective Remarks/Hospital Course: Patient is a 37-year-old male with a past medical history of polysubstance abuse who presented to [facility] ED via EMSstatus post cardiopulmonary arrest. He was found unresponsive outside on the porch and when EMS arrived, the patient was found pulseless. CPR was initiated and the patient was in asystole followed by a PEA arrest. ACLS protocol was initiated , and the patient received epinephrine multiple times en route and bicarbonate. Combitube intubation was performed successfully. The patient arrived in the ED, while CPR was performed by EMS. On arrival, he was hypotensive with a systolic blood pressure in the 80s, hypothermic with a temperature of 84-85 degrees Fahrenheit. In the ED, he was given a 3 liter bolus of normal saline, intubated with 8.0 ET tube, and a right IJ central line was placed by ED physician. Also, he was started on Levophed, which is currently at 10 mcg. His laboratory data is significant for severe lactic acidosis with a lactic acid level of 19.5, acute renal failure with a creatinine of 2.42. In addition , the patient was hypoglycemic with a blood sugar of 45 on the CMP. Also, he has leukocytosis with a WBC of 15.6. Initial ABG on the ventilator showed severe respiratory and metabolic acidosis with a pH of 6.91, CO2 65, PaO2 348, bicarbonate of 12, saturations of 97%. Chest x-ray showed bilateral perihilar patchy airspace consolidation. A CT scan of the brain was obtained, which showed diffuse cerebral swelling with decreased size of the ventricles. The patient is unresponsive and not on any sedation. 03/22 Patient remains sedated and intubated, Tmax 103.1. Seizures overnight given Keppra and Cerebyx loading dose. EEG yesterday Flat line appearance in addition to portions of electrical artifact. severe diffuse cortical injury. On bicarb drip 03/23 remains sedated, orally intubated on mechanical ventilation. Objective Vital Signs / I&O: Vital Signs 03/22/18 10:03 03/22/18 10:53 03/22/18 11:00 Temperature 98.5 F Pulse Rate 106 H 106 H Respiratory Rate 21 20 Blood Pressure 84/47 L Pulse Oximetry 94 L 99 03/22/18 11:30 03/22/18 14:09 03/22/18 15:00 Temperature 98.4 F Pulse Rate 106 H 102 H Respiratory Rate 20 20 20 Blood Pressure 95/55 L Pulse Oximetry 97 98 03/22/18 16:20 03/22/18 20:00 03/22/18 20:15 Temperature 98.4 F Pulse Rate 100 H 97 H 96 H Respiratory Rate 20 20 20 Blood Pressure 106/57 L Pulse Oximetry 98 98 03/22/18 20:20 03/22/18 22:50 03/23/18 00:00 Temperature 97.9 F Pulse Rate 89 Respiratory Rate 20 20 20 Blood Pressure 104/56 L Pulse Oximetry 98 98 98 03/23/18 00:05 03/23/18 04:00 03/23/18 04:07 Temperature 97.8 F Pulse Rate 90 80 81 Respiratory Rate 20 20 20 Blood Pressure 105/57 L Pulse Oximetry 99 98 98 03/23/18 07:46 03/23/18 07:47 Temperature Pulse Rate 75 Respiratory Rate 20 20 Blood Pressure Pulse Oximetry 98 Intake & Output 03/22/18 03/23/18 03/23/18 18:59 06:59 18:59 Intake Total 1815 / 1815 2641 / 2641 100 / 100 Output Total 500 / 500 660 / 660 Balance 1315 / 1315 1980 / 1980 100 / 100 Weight 88.133 kg Intake: IV 1815 / 1815 2450 / 2450 100 / 100 D5W/Normal Saline Inj 1,000 ML 2000 / 2000 @ 100 mls/hr IV.CONT .Q10H ANGIE Rx#:[id number] Diprivan 1000 mg/100 ml Inj 1, 300 / 300 100 / 100 000 mg In 100 ml @ 5 MCG/KG/MIN 2.858 mls/hr IV.CONT TITRATE PRN Rx#:[id number] Sodium Bicarbonate 8.4% Inj 150 600 / 600 MEQ In D5W Inj 850 ML @ 150 mls/hr IV.CONT .Q6H40M ANGIE Rx#: [id number] Ofirmev Inj 1,000 mg In 100 ml 100 / 100 @ 300 mls/hr IV.SIG Q6H PRN Rx# :[id number] Azactam Inj 1,000 MG In NS Inj 200 / 200 100 / 100 100 ML @ 200 mls/hr IV.SIG Q8H ANGIE Rx#:[id number] KCl 40 mEq Premix Inj 40 meq In 100 / 100 100 ml @ 25 mls/hr IV.SIG Q4H [facility] Rx#:[id number] Vancomycin Inj 1,500 MG In NS 515 / 515 Inj 500 ML @ 257.5 mls/hr IV. SIG ONCE ONE Rx#:[id number] fentaNYL 10 mcg/mL Premix Drip 250 / 250 2,500 mcg In 250 ml @ 50 MCG/HR 5 mls/hr IV.SIG TITRATE PRN Rx #:[id number] Keppra 1000 mg/100 mL Premix 100 / 100 100 ML @ 400 mls/hr IV.SIG Q12H [facility] Rx#:[id number] Oral 0 / 0 0 / 0 Tube Feeding 191 / 191 Output: Urine Amount (Catheter) 500 / 500 660 / 660 Indwelling Urethral Catheter 500 / 500 660 / 660 Other: # Bowel Movements 0 Result Diagrams: 03/23/18 05:00 03/23/18 05:00 Imaging: Abdomen Ultrasound 03/21/18 00:00 CONCLUSION: 1. Small right pleural effusion and mild amount of ascites. 2. 2 focal lesions in the liver have uniform hyperechogenicity, suggestive of hemangiomata. Chest X-Ray 03/21/18 06:32 CONCLUSION: Lines and tubes appear appropriate in position. Bilateral perihilar patchy airspace consolidation is present. Pattern consistent with noncardiac pulmonary edema. Head CT 03/21/18 06:36 CONCLUSION: 1. There is evidence of diffuse cerebral swelling with decreased size of the ventricles as compared to the prior exam and poor visualization of the sulci as compared to the prior exam. . Brain Flow Nuclear Medicine 03/22/18 00:00 CONCLUSION: 1. There is positive blood flow to the brain with mild brain activity. Head MRI 03/22/18 00:00 CONCLUSION: 1. Symmetric and scattered areas of diffusion restriction in both cerebral hemispheres are probably secondary to an anoxic brain injury. Areas involved are the occiput, portions of the temporal and high parietal lobes bilaterally. 2. No acute intracranial hemorrhage. 3. Cerebellar tonsillar ectopia. Objective Remarks: GENERAL: Patient is 37 yo intubated, sedated critically ill. SKIN: Warm and dry. HEAD: Normocephalic. EYES: Pupils 2 mm nonreactive no corneal reflex No scleral icterus. No injection or drainage. NECK: Supple, trachea midline. No JVD or lymphadenopathy. CARDIOVASCULAR: Regular rate and rhythm without murmurs, gallops, or rubs. RESPIRATORY: Breath sounds equal bilaterally. No accessory muscle use. GASTROINTESTINAL: Abdomen soft, non-tender, nondistended. MUSCULOSKELETAL: No cyanosis, or edema. Neuro: Sedated, intubated. No involuntary movements seen. no gag reflex, no flexion or withdrawal to tactile stimuli Assessment and Plan - Assessment and Plan Plan: 1. VDRF 2. s/p cardiopulmonary arrest. 3. Anoxic brain injury. 4. Aspiration pneumonia. 5. Polysubstance abuse UDS + amphetamines and opiates. 6. Lactic acidemia 7. Acute kidney injury. 8. Elevated liver enzymes. 9. Leukocytosis. 10. Anemia, thrombocytopenia Plan Neuro: On Diprivan, Fentanyl infusion for sedation. Daily sedation vacation. Given Cerebyx and Keppra overnight. On Keppra 1gram IV Q12 CT brain diffuse cerebral swelling. MRI brain: Symmetric and scattered areas of diffusion restriction in both cerebral hemispheres are probably secondary to an anoxic brain injury. Areas involved are the occiput, portions of the temporal and high parietal lobes bilaterally. No acute intracranial hemorrhage. EEG: Flat line appearance in addition to portions of electrical artifact, severe diffuse cortical injury Neuro is following. Cerebral flow study: Positive blood flow to the brain with mild brain activity. Pulm: Continue with vent support and maintain sats > 92%. Bronchodilators, ICU vent bundle. on stress dose steroids HC 100 mg IV Q8 CV: Monitor HR and BP keep MAP>65mmHg Serial lactic acid monitoring ( trending down) Patient was not a candidate for [employer] Cool due to hemodynamic instability, severe lactic acidemia, multiorgan injury, diffuse cerebral swelling on CT of brain and anoxic brain injury. For 2-D echo to evaluate LV function : Monitor renal function, intake and output, and avoid nephrotoxins. US abdomen: Small right pleural effusion and mild amount of ascites. 2 focal lesions in the liver have uniform hyperechogenicity, suggestive of hemangiomata. Renal function worse with Cr:3.18 from 2.08. UOP: 2725ml since yesterday Change bicarb drip to D5NS@100ml/hr. Renal eval. GI: on Pepcid for gastrointestinal prophylaxis. Monitor LFT's, Hepatitis profile: Hep C IgG ab reactive Tube feeds- Nepro with goal rate 40ml/hr ID: Continue abx( aztreonam, Vanco )Monitor for signs of infection( fever and WBC) Follow up on blood and sputum culture pending nasal washing screening for influenza is negative. Endo: SSI with Accu-Cheks every 4 hours. Heme: Monitor CBC. GI prophylaxis on Pepcid, DVT prophylaxis with SCD Palliative care consulted to assist with goals of care. Lines: Right IJ central line was placed by ED physician. CCT 30 mins excluding procedures
--- NOTE | 2018-03-23 11:00 | P.CONPAL ---
Consult Service: Palliative Care Requesting Physician: Karissa Pepe Reason for Consult: a. To assist with evaluation and management of symptoms including: dyspnea , encephalopathy, pain ,seizures b. To assist medical decision maker(s) with: better understanding of current medical conditions; weighing benefits/burdens of medical treatment options; making medical treatment decisions. Primary Care Provider: UNKNOWN History of Present Illness History of Present Illness: This 37-year-old male presented to the ED on 03/21/18, per EMS reports found unresponsive outside on a porch. Per EMS a resident found pt outside cold unresponsive. At EMS arrival patient was pulseless CPR initiated, patient asystole followed by PEA. Received ACLS protocol en route Combitube placed en route. CPR continued at arrival to ED. * \\In the ED central line placed, Combitube replaced with a ET tube. Circulation returned after 1 round of CPR in the ED. Receiving IV fluid bolus, hypotensive blood pressure 60/33. EKG with atrial fibrillation. Labs: WBC 15.6 , hemoglobin 12.1, hematocrit 36.6. Platelet 148. Lactic acid 19.5. Creatinine 2.42. Hypoglycemic 45. PH 6.91. CXR: Bilateral perihilar patchy airspace present consistent with noncardiac pulmonary edema. Head CT: Evidence of diffuse cerebral swelling with decreased size of the ventricles as compared to prior exam and poor visualization of sulci as compared to prior. To exam unresponsive with no sedation. Hypothermic temperature 84-85. History of polysubstance abuse per the ED, urine drug screen positive for amphetamines and opiates. Not a candidate for hypothermic therapy due to hemodynamic instability and severe lactic acidemia with multiorgan injury. Additional diagnostics pending. Palliative care to be consulted to assist with clarification of goals of medical treatment. Critical care notes patient critically ill with severe anoxic brain injury multiple organ injury. * Neurology consulted: Patient with severe cortical and brainstem injury absence of brainstem reflexes. Consider cerebral blood flow study and apnea test when stable. Follow-up EEG pending. * Brain flow study completed 03/22/18 CONCLUSION: 1. There is positive blood flow to the brain with mild brain activity. MRI: 1. Symmetric and scattered areas of diffusion restriction in both cerebral hemispheres are probably secondary to an anoxic brain injury. Areas involved are the occiput, portions of the temporal and high parietal lobes bilaterally. 2. No acute intracranial hemorrhage. 3. Cerebellar tonsillar ectopia. * 03/22 febrile T-max 103.1. Seizures overnight started on Keppra, Cerebyx loading doses. EEG flat in appearance. Severe diffuse cortical injury. Creatinine increasing 3.18, scant dark urine. Nephrology consulted: Acute renal failure most likely due to ATN underlying rhabdomyolysis. Poor response. Poor urine output. Continue supportive care. Long-term prognosis "very poor and bleak" * 03/22 neurology following: Comatose state. Pupils 2 mm nonreactive. No corneal reflex. Impaired oculocephalic reflex. Cold calorics performed no response. No gag. Follow-up cerebral blood flow study when stable and apnea test. Patient seen in room no visitors present. Nursing reports no one has called or been in to see him. He is nonresponsive to exam. No pupil response. No gag with PT stimuli. Not overbreathing vent rate. On fentanyl at 50 mics/hour, propofol 25 mics/hour, nursing reports the sedatives were initiated for seizures , seizures resolved upon initiation, she is currently weaning drips down. Following exam planned to call patient father, however nursing called me shortly after and indicates they received a call from a "best friend "who has been calling hospitals all over to try to find the patient. She indicates the patient's father Christopher is 1 year ago, nursing reports that is why their calls to his number have not gone through. This friend reported he has a brother named Raúl Mann. This friend also reported that he is estranged from his mother and that she has a restraining order against him. Google search of patient's name does yield already identified family members and a possible mother named Eugenia. I attempted to reach brother Raúl,VM left. ---[phone] later notified by nursing that brother Raúl is now present at bedside. Met with Raúl at bedside review with him hospital course, EMS report. Review with him [place] statutes for proxy decision making. He indicates that patient does have a son Christ who just turned 18. Patient does have mother Eugenia whom he has been estranged from for some time, he shares that Eugenia has a restraining order against the patient. Brother further details that the patient has long struggled with drug abuse. He indicates that he just picked the patient up from incarceration about a week ago, and had been working on helping set the patient up with a rehab house to help in his drug recovery. He also tells me that the patient father in the past year of the same circumstances. He indicates that the patient told him that he was "going to do this " . He is appropriately tearful. He is trying to reach the patient mother to notify her, as well as adult son Christ. He indicates that he does not think Christ will want to make the decisions and he also feels certain that Eugenia will not want to make decisions. Request that he contact them and have them either contact nursing or myself directly to notify if they wish to participate as proxy. Offered computer designer support, he is amenable to this notified multimedia authoring specialistherminia Reese. He is tearful and tells me he "knows that decisions will be coming about life support." Updated nursing on all. Function/Cognitive Trajectory: appears patient lived independently-- just released in past week from incarceration, brother was working to help brother get into drug rehabilitation home. Review of Systems unobtainable due to endotracheal tube, unobtainable due to mental status (non responsive, brain injury ) PMFSH - History History Provided By: [employer] Specialist / EMT - Medical History Medical History: Medical History (Last Updated 03/23/18 @ 11:50 by VIVIANA Moraes) Patient denies medical problems - Surgical History Surgical History: Surgical History (Last Reviewed 03/23/18 @ 11:50 by VIVIANA Moraes) No history of previous surgery - Family History Family History: Family History (Last Updated 03/23/18 @ 13:29 by VIVIANA Moraes) Father Drug abuse Other Unknown family medical history - Social History I have reviewed the patient's Social History: Yes - Tobacco History Second Hand Smoke Exposure: Yes Smoking Status: Smoker, status unknown (per EMR 09/2017 active smoker at that time) Tobacco Type: Cigarettes - Alcohol History How Often Do You Have a Drink Containing Alcohol: Unable to Obtain (Per EMR hx alcohol use) - Substance Use History Substance History: Active Abuse (Per EMR hx cocaine, other IVDU, drug screen + amphetamines opiates this admission), Unable to Obtain - Immunization History Tetanus Immunization: Unsure Medications and Allergies Active Medications: Active Medications Al Hydroxide/Mg Hydroxide (Milk Of Magnesia Liq) 30 ml PO Q12H PRN PRN Reason: Mild Constipation Albuterol (Duoneb Neb (Prn)) 1 ampul NEB Q2HR NEB PRN PRN Reason: WHEEZING Albuterol (Duoneb Neb (Evan)) 1 ampul NEB Q4HR NEB EVAN Last Admin: 03/23/18 07:45 Dose: 1 ampul Bisacodyl (Dulcolax Supp) 10 mg RECTAL DAILY PRN PRN Reason: SEVERE CONSITIPATION Chlorhexidine Gluconate (Chlorhexidine 2% Cloth) 3 pack TOPICAL DAILY@0400 EVAN Stop: 03/27/18 03:59 Last Admin: 03/23/18 05:00 Dose: 3 pack Chlorhexidine Gluconate (Chlorhexidine 2% Cloth) 3 pack TOPICAL DAILY@0400 PRN PRN Reason: Extra cloth needed Stop: 03/27/18 03:59 Dextrose (D50w Vial) 50 ml IV.PUSH UNSCH PRN PRN Reason: PER HYPOGLYCEMIA PROTOCOL Glucagon (Glucagon Inj) 1 mg OTHER PRN PRN PRN Reason: for Hypoglycemia Protocol Hydrocortisone Sodium Succinate (Solucortef Inj) 100 mg IV.PUSH Q8HR EVAN Last Admin: 03/23/18 05:00 Dose: 100 mg Sodium Chloride (Ns Inj) 1,000 mls @ 0 mls/hr IV.SIG .Q0M EVAN Last Infusion: 03/21/18 07:40 Dose: Infused Sodium Chloride (Ns Inj) 1,000 mls @ 0 mls/hr IV.SIG .Q0M EVAN Last Infusion: 03/21/18 08:45 Dose: Infused Sodium Chloride (Ns Inj) 1,000 mls @ 0 mls/hr IV.SIG .Q0M EVAN Last Infusion: 03/21/18 09:00 Dose: Infused Norepinephrine Bitartrate (Levophed-Dextrose 4 Mg/250 Ml Drip) 4 mg in 250 mls @ 7.5 mls/hr IV.SIG TITRATE PRN; Protocol PRN Reason: Per Protocol Last Titration: 03/23/18 08:53 Dose: 0 mcg/min, 0 mls/hr Aztreonam 1,000 mg/ Sodium (Chloride) 100 mls @ 200 mls/hr IV.SIG Q8H EVAN Last Infusion: 03/23/18 10:26 Dose: Infused Fentanyl (Fentanyl 10 Mcg/Ml Premix Drip) 2,500 mcg in 250 mls @ 5 mls/hr IV.SIG TITRATE PRN; Protocol PRN Reason: Per Protocol Last Titration: 03/23/18 08:53 Dose: 100 mcg/hr, 10 mls/hr Propofol (Diprivan 1000 Mg/100 Ml Inj) 1,000 mg in 100 mls @ 2.858 mls/hr IV.CONT TITRATE PRN; Protocol PRN Reason: Per Protocol Last Titration: 03/23/18 08:52 Dose: 25 mcg/kg/min, 14.29 mls/hr Midazolam HCl (Versed Inj) 100 mg in 100 mls @ 2 mls/hr IV.CONT TITRATE PRN; Protocol PRN Reason: See protocol Last Titration: 03/23/18 08:54 Dose: 0 mg/hr, 0 mls/hr Acetaminophen (Ofirmev Inj) 1,000 mg in 100 mls @ 300 mls/hr IV.SIG Q6H PRN PRN Reason: FEVER > 101 F Last Infusion: 03/22/18 07:43 Dose: Infused Dextrose/Sodium Chloride (D5w/Normal Saline Inj) 1,000 mls @ 100 mls/hr IV.CONT .Q10H EVAN Last Admin: 03/23/18 06:32 Dose: 100 mls/hr Potassium Chloride (Kcl 40 Meq Premix Inj) 40 meq in 100 mls @ 25 mls/hr IV.SIG Q4H EVAN Stop: 03/23/18 14:44 Last Infusion: 03/23/18 08:51 Dose: Infused Insulin Aspart (Novolog Insulin Correctional Sugar Inj) 0 unit SQ Q4HR EVAN; Protocol Last Admin: 03/23/18 08:49 Dose: 1 unit Lactulose (Lactulose Liq) 30 ml PO DAILY PRN PRN Reason: SEVERE CONSITIPATION Pantoprazole Sodium (Protonix Inj) 40 mg IV.PUSH DAILY EVAN Last Admin: 03/23/18 08:50 Dose: 40 mg Pharmacy Profile Note (Vancomycin Consult Pharmacy) 1 each OTHER UNSCH PRN PRN Reason: Pharmacy to dose Sennosides (Senokot) 17.2 mg PO Q12H PRN PRN Reason: Moderate Constipation Sodium Chloride (Ns Flush) 2 ml IV.FLUSH BID EVAN Last Admin: 03/23/18 08:50 Dose: 2 ml Sodium Chloride (Ns Flush) 2 ml IV.FLUSH PRN PRN PRN Reason: FLUSH AFTER USING IV ACCESS Terbutaline Sulfate (Brethine Inj) 1 mg SQ UNSCH PRN PRN Reason: For Extravasation Allergies Allergy/AdvReac Type Severity Reaction Status Date / Time No Allergy Information Allergy Verified 03/21/18 06:25 Available Home Medications Medication Instructions Recorded Confirmed Type Unable to Obtain Home Meds 03/21/18 03/21/18 History Advance Directives Living Will: No Healthcare Surrogate: No Ethical and Legal Issues: At this time patient incapacitated and unable to make decisions. Does not appear he will regain ability. Per [place] statutes legal decision making would fall to his parents. Father reported . Mother may be estranged. Otherwise he has a brother, who may serve as proxy if mother is unwilling or unable. I will check w legal regarding proxy decision making of family member with restraining order. Physical Exam Vital Signs: Vital Signs - 24 hr 03/22/18 11:00 03/22/18 11:30 03/22/18 14:09 Temperature Pulse Rate 106 H 106 H Respiratory Rate 20 20 Blood Pressure Pulse Oximetry 97 03/22/18 15:00 03/22/18 16:20 03/22/18 20:00 Temperature 98.4 F 98.4 F Pulse Rate 102 H 100 H 97 H Respiratory Rate 20 20 20 Blood Pressure 95/55 L 106/57 L Pulse Oximetry 98 98 98 03/22/18 20:15 03/22/18 20:20 03/22/18 22:50 Temperature Pulse Rate 96 H Respiratory Rate 20 20 20 Blood Pressure Pulse Oximetry 98 98 03/23/18 00:00 03/23/18 00:05 03/23/18 04:00 Temperature 97.9 F 97.8 F Pulse Rate 89 90 80 Respiratory Rate 20 20 20 Blood Pressure 104/56 L 105/57 L Pulse Oximetry 98 99 98 03/23/18 04:07 03/23/18 07:00 03/23/18 07:46 Temperature 97.6 F Pulse Rate 81 74 75 Respiratory Rate 20 20 20 Blood Pressure 105/62 Pulse Oximetry 98 98 03/23/18 07:47 Temperature Pulse Rate Respiratory Rate 20 Blood Pressure Pulse Oximetry 98 I&O: Intake & Output 03/21/18 03/22/18 03/23/1819 06:59 06:59 06:59 06:59 Intake Total 7520 / 7520 4456 / 4456 200 / 200 Output Total 3025 / 3025 1160 / 1160 Balance 4495 / 4495 3296 / 3296 200 / 200 Weight 95.254 kg 88.133 kg Physical Exam: CONSTITUTIONAL/GENERAL: This is an adequately nourished patient,non responsive on [facility] vent TUBES/LINES/DRAINS:central line rt IJ, ETT, NGT, bauer catheter, scd SKIN: No jaundice, rashes, or lesions. No wounds seen anteriorly. Skin warm/ dry. multiple tattoos to UE, trunk. HEAD: Atraumatic. Normocephalic. EYES: Pupils 2mm non reactive to light. No corneal reflex. No scleral icterus. No injection or drainage. Fundi not examined. ENT: Nose without bleeding or purulent drainage. unable to visualize oropharynx secondary to tubes/no readily visible lesions or exudates NECK: Trachea midline. Supple, nontender. No palpable thyroid enlargement or nodularity. CARDIOVASCULAR: Regular rate and rhythm without murmur. No JVD. Peripheral pulses symmetric. RESPIRATORY/CHEST: Symmetric, unlabored respirations, via mechanical vent. Not overbreathing vent rate. Clear to auscultation. Breath sounds equal bilaterally. GASTROINTESTINAL: Abdomen soft, nondistended. No hepato-splenomegaly, or palpable masses. Bowel sounds present. GENITOURINARY: Without palpable bladder distension. Bauer catheter in place. MUSCULOSKELETAL: Extremities without clubbing, cyanosis, or edema. No joint tenderness or effusion noted. No calf tenderness. No mottling or clubbing. LYMPHATICS: No palpable cervical or supraclavicular adenopathy. NEUROLOGICAL: On some sedation. Nonresponsive to exam. No gag with ETT stimuli. No corneal or pupillary reflex. No withdrawal to pain stimuli on extremities. PSYCHIATRIC: Limited assessment secondary to clinical condition, not responsive Diagnostic Tests Laboratory: Laboratory Results - last 72 hr 03/21/18 03/21/18 03/21/18 06:40 06:40 06:40 WBC 15.6 H RBC 3.86 L Hgb 12.1 L Hct 36.6 L MCV 94.8 MCH 31.4 MCHC 33.1 RDW 13.9 Plt Count 148 L MPV 10.2 Prelim Diff (Auto) Slide review pending Neut % (Auto) 53.5 Lymph % (Auto) 34.4 [place] % (Auto) 10.4 H Eos % (Auto) 1.5 Baso % (Auto) 0.2 Neut # (Auto) 8.3 H Lymph # (Auto) 5.3 H [place] # (Auto) 1.6 H Eos # (Auto) 0.2 Baso # (Auto) 0.0 WBC Differential Manual diff final Diff Scan Seg Neuts % (Manual) 41 Band Neuts % (Manual) 7 H Lymphocytes % (Manual) 40 Monocytes % (Manual) 9 H Eosinophils % (Manual) 2 Myelocytes % (Man) 1 H Abs Neuts (Manual) 7.6 Nucleated RBCs/100 WBC 1 H Differential Comment . Platelet Estimate Low L Platelet Morphology Normal RBC Morphology Normal Puncture Site Patient Temperature O2 Saturation ABG pH ABG pCO2 ABG pO2 ABG HCO3 ABG O2 Content ABG Base Excess ABG Methemoglobin Humberto Test Hemoglobin Carboxyhemoglobin O2 Delivery Device Liter Flow Vent Setting Inspired O2 Critical Value Sodium 143 Potassium 4.5 Chloride 98 Carbon Dioxide 19.4 L Anion Gap 26 H BUN 22 H Creatinine 2.42 H Estimated GFR 30 L POC Glucose Random Glucose 45 L* Lactic Acid 19.5 H* Calcium 7.9 L Calcium Adj for Albumin Magnesium 3.6 H Total Bilirubin 1.7 H AST 351 H ALT 291 H Alkaline Phosphatase 142 H Total Creatine Kinase CK-MB (CK-2) CK-MB (CK-2) % Troponin I 0.05 Total Protein 5.5 L Albumin 2.9 L Urine Color Urine Clarity Urine pH Ur Specific [place] Urine Protein Urine Glucose (UA) Urine Ketones Urine Occult Blood Urine Nitrate Urine Bilirubin Urine Urobilinogen Ur Leukocyte Esterase Urine RBC Urine WBC Ur Squamous Epith Cells Hyaline Casts Urine Mucus Urine Sperm Micro UA Comment Ur Microscopic Review Urine Culture Comments Nasal Screen MRSA (PCR) Random Vancomycin Urine Opiates Screen Ur Barbiturates Screen Ur Amphetamines Screen U Benzodiazepines Scrn Urine Cocaine Screen U Cannabinoids Screen Hepatitis A IgM Ab Hep Bs Antigen Hep B Core IgM Ab Hep C IgG Ab 03/21/18 03/21/18 03/21/18 06:45 06:45 07:34 WBC RBC Hgb Hct MCV MCH MCHC RDW Plt Count MPV Prelim Diff (Auto) Neut % (Auto) Lymph % (Auto) [place] % (Auto) Eos % (Auto) Baso % (Auto) Neut # (Auto) Lymph # (Auto) [place] # (Auto) Eos # (Auto) Baso # (Auto) WBC Differential Diff Scan Seg Neuts % (Manual) Band Neuts % (Manual) Lymphocytes % (Manual) Monocytes % (Manual) Eosinophils % (Manual) Myelocytes % (Man) Abs Neuts (Manual) Nucleated RBCs/100 WBC Differential Comment Platelet Estimate Platelet Morphology RBC Morphology Puncture Site Left radial Patient Temperature 98.6 O2 Saturation 97 ABG pH 6.91 L* ABG pCO2 65 H* ABG pO2 348 H ABG HCO3 12 L* ABG O2 Content 16.0 ABG Base Excess -18.2 L ABG Methemoglobin 0.5 Humberto Test Present Hemoglobin 11.1 L Carboxyhemoglobin 1.3 O2 Delivery Device Ventilator Liter Flow Vent Setting Inspired O2 100 Critical Value Yes Sodium Potassium Chloride Carbon Dioxide Anion Gap BUN Creatinine Estimated GFR POC Glucose Random Glucose Lactic Acid Calcium Calcium Adj for Albumin Magnesium Total Bilirubin AST ALT Alkaline Phosphatase Total Creatine Kinase CK-MB (CK-2) CK-MB (CK-2) % Troponin I Total Protein Albumin Urine Color Yellow Urine Clarity Hazy H Urine pH 6.0 Ur Specific [place] 1.013 Urine Protein Negative Urine Glucose (UA) Negative Urine Ketones Negative Urine Occult Blood Negative Urine Nitrate Negative Urine Bilirubin Negative Urine Urobilinogen 2.0 H Ur Leukocyte Esterase Negative Urine RBC 1 Urine WBC Less than 1 Ur Squamous Epith Cells <1 Hyaline Casts 25 Urine Mucus Few H Urine Sperm Rare H Micro UA Comment Cath-culture not ind Ur Microscopic Review Not Reportable Urine Culture Comments Cath-cult not ind Nasal Screen MRSA (PCR) Random Vancomycin Urine Opiates Screen Pos H Ur Barbiturates Screen Neg Ur Amphetamines Screen Pos H U Benzodiazepines Scrn Neg Urine Cocaine Screen Neg U Cannabinoids Screen Neg Hepatitis A IgM Ab Hep Bs Antigen Hep B Core IgM Ab Hep C IgG Ab 03/21/18 03/21/18 03/21/18 09:09 09:10 09:42 WBC RBC Hgb Hct MCV MCH MCHC RDW Plt Count MPV Prelim Diff (Auto) Neut % (Auto) Lymph % (Auto) [place] % (Auto) Eos % (Auto) Baso % (Auto) Neut # (Auto) Lymph # (Auto) [place] # (Auto) Eos # (Auto) Baso # (Auto) WBC Differential Diff Scan Seg Neuts % (Manual) Band Neuts % (Manual) Lymphocytes % (Manual) Monocytes % (Manual) Eosinophils % (Manual) Myelocytes % (Man) Abs Neuts (Manual) Nucleated RBCs/100 WBC Differential Comment Platelet Estimate Platelet Morphology RBC Morphology Puncture Site Patient Temperature O2 Saturation ABG pH ABG pCO2 ABG pO2 ABG HCO3 ABG O2 Content ABG Base Excess ABG Methemoglobin Humberto Test Hemoglobin Carboxyhemoglobin O2 Delivery Device Liter Flow Vent Setting Inspired O2 Critical Value Sodium Potassium Chloride Carbon Dioxide Anion Gap BUN Creatinine Estimated GFR POC Glucose Random Glucose Lactic Acid Calcium Calcium Adj for Albumin Magnesium Total Bilirubin AST ALT Alkaline Phosphatase Total Creatine Kinase 1557 H CK-MB (CK-2) 31.5 H CK-MB (CK-2) % 2.0 Troponin I Total Protein Albumin Urine Color Urine Clarity Urine pH Ur Specific [place] Urine Protein Urine Glucose (UA) Urine Ketones Urine Occult Blood Urine Nitrate Urine Bilirubin Urine Urobilinogen Ur Leukocyte Esterase Urine RBC Urine WBC Ur Squamous Epith Cells Hyaline Casts Urine Mucus Urine Sperm Micro UA Comment Ur Microscopic Review Urine Culture Comments Nasal Screen MRSA (PCR) Not detected Random Vancomycin Urine Opiates Screen Ur Barbiturates Screen Ur Amphetamines Screen U Benzodiazepines Scrn Urine Cocaine Screen U Cannabinoids Screen Hepatitis A IgM Ab Nonreactive Hep Bs Antigen Nonreactive Hep B Core IgM Ab Nonreactive Hep C IgG Ab Reactive H 03/21/18 03/21/18 03/21/18 09:42 09:54 10:36 WBC RBC Hgb Hct MCV MCH MCHC RDW Plt Count MPV Prelim Diff (Auto) Neut % (Auto) Lymph % (Auto) [place] % (Auto) Eos % (Auto) Baso % (Auto) Neut # (Auto) Lymph # (Auto) [place] # (Auto) Eos # (Auto) Baso # (Auto) WBC Differential Diff Scan Seg Neuts % (Manual) Band Neuts % (Manual) Lymphocytes % (Manual) Monocytes % (Manual) Eosinophils % (Manual) Myelocytes % (Man) Abs Neuts (Manual) Nucleated RBCs/100 WBC Differential Comment Platelet Estimate Platelet Morphology RBC Morphology Puncture Site Right radial Left radial Patient Temperature 98.6 98.6 O2 Saturation 87 L* 97 ABG pH 7.31 L 7.32 L ABG pCO2 34 L 35 L ABG pO2 57 L* 235 H ABG HCO3 17 L 17 L ABG O2 Content 16.1 19.5 ABG Base Excess -8.3 L -7.5 L ABG Methemoglobin 1.6 1.6 Humberto Test + + Hemoglobin 13.2 14.0 Carboxyhemoglobin 1.3 0.7 O2 Delivery Device Ventilator Ventilator Liter Flow Vent Setting See comments See comments Inspired O2 50 100 Critical Value Yes No Sodium Potassium Chloride Carbon Dioxide Anion Gap BUN Creatinine Estimated GFR POC Glucose Random Glucose Lactic Acid 12.6 H* Calcium Calcium Adj for Albumin Magnesium Total Bilirubin AST ALT Alkaline Phosphatase Total Creatine Kinase CK-MB (CK-2) CK-MB (CK-2) % Troponin I Total Protein Albumin Urine Color Urine Clarity Urine pH Ur Specific [place] Urine Protein Urine Glucose (UA) Urine Ketones Urine Occult Blood Urine Nitrate Urine Bilirubin Urine Urobilinogen Ur Leukocyte Esterase Urine RBC Urine WBC Ur Squamous Epith Cells Hyaline Casts Urine Mucus Urine Sperm Micro UA Comment Ur Microscopic Review Urine Culture Comments Nasal Screen MRSA (PCR) Random Vancomycin Urine Opiates Screen Ur Barbiturates Screen Ur Amphetamines Screen U Benzodiazepines Scrn Urine Cocaine Screen U Cannabinoids Screen Hepatitis A IgM Ab Hep Bs Antigen Hep B Core IgM Ab Hep C IgG Ab 03/21/18 03/21/18 03/21/18 12:00 12:00 13:30 WBC RBC Hgb Hct MCV MCH MCHC RDW Plt Count MPV Prelim Diff (Auto) Neut % (Auto) Lymph % (Auto) [place] % (Auto) Eos % (Auto) Baso % (Auto) Neut # (Auto) Lymph # (Auto) [place] # (Auto) Eos # (Auto) Baso # (Auto) WBC Differential Diff Scan Seg Neuts % (Manual) Band Neuts % (Manual) Lymphocytes % (Manual) Monocytes % (Manual) Eosinophils % (Manual) Myelocytes % (Man) Abs Neuts (Manual) Nucleated RBCs/100 WBC Differential Comment Platelet Estimate Platelet Morphology RBC Morphology Puncture Site Patient Temperature O2 Saturation ABG pH ABG pCO2 ABG pO2 ABG HCO3 ABG O2 Content ABG Base Excess ABG Methemoglobin Humberto Test Hemoglobin Carboxyhemoglobin O2 Delivery Device Liter Flow Vent Setting Inspired O2 Critical Value Sodium 139 Potassium 3.1 L D Chloride 98 Carbon Dioxide 25.2 Anion Gap 16 H BUN 27 H Creatinine 2.08 H Estimated GFR 36 L POC Glucose 196 H Random Glucose 181 H D Lactic Acid 6.7 H* Calcium 6.6 L* D Calcium Adj for Albumin 7.5 L Magnesium Total Bilirubin 3.3 H AST 1052 H ALT 745 H Alkaline Phosphatase 127 H Total Creatine Kinase CK-MB (CK-2) CK-MB (CK-2) % Troponin I Total Protein 5.7 L Albumin 2.9 L Urine Color Urine Clarity Urine pH Ur Specific [place] Urine Protein Urine Glucose (UA) Urine Ketones Urine Occult Blood Urine Nitrate Urine Bilirubin Urine Urobilinogen Ur Leukocyte Esterase Urine RBC Urine WBC Ur Squamous Epith Cells Hyaline Casts Urine Mucus Urine Sperm Micro UA Comment Ur Microscopic Review Urine Culture Comments Nasal Screen MRSA (PCR) Random Vancomycin Urine Opiates Screen Ur Barbiturates Screen Ur Amphetamines Screen U Benzodiazepines Scrn Urine Cocaine Screen U Cannabinoids Screen Hepatitis A IgM Ab Hep Bs Antigen Hep B Core IgM Ab Hep C IgG Ab 03/21/18 03/22/18 03/22/18 17:48 00:35 05:15 WBC 13.3 H RBC 3.86 L Hgb 12.1 L Hct 34.0 L MCV 88.1 D MCH 31.4 MCHC 35.6 RDW 13.5 Plt Count 89 L D MPV 10.2 Prelim Diff (Auto) Slide review pending Neut % (Auto) 88.6 H Lymph % (Auto) 7.1 L [place] % (Auto) 4.0 Eos % (Auto) 0.2 Baso % (Auto) 0.1 Neut # (Auto) 11.8 H Lymph # (Auto) 0.9 L [place] # (Auto) 0.5 Eos # (Auto) 0.0 Baso # (Auto) 0.0 WBC Differential Manual diff final Diff Scan Seg Neuts % (Manual) 64 Band Neuts % (Manual) 33 H Lymphocytes % (Manual) 2 L Monocytes % (Manual) 1 Eosinophils % (Manual) Myelocytes % (Man) Abs Neuts (Manual) 12.9 H Nucleated RBCs/100 WBC Differential Comment . Platelet Estimate Low L Platelet Morphology Normal RBC Morphology Normal Puncture Site Patient Temperature O2 Saturation ABG pH ABG pCO2 ABG pO2 ABG HCO3 ABG O2 Content ABG Base Excess ABG Methemoglobin Humberto Test Hemoglobin Carboxyhemoglobin O2 Delivery Device Liter Flow Vent Setting Inspired O2 Critical Value Sodium Potassium Chloride Carbon Dioxide Anion Gap BUN Creatinine Estimated GFR POC Glucose 212 H 166 H Random Glucose Lactic Acid Calcium Calcium Adj for Albumin Magnesium Total Bilirubin AST ALT Alkaline Phosphatase Total Creatine Kinase CK-MB (CK-2) CK-MB (CK-2) % Troponin I Total Protein Albumin Urine Color Urine Clarity Urine pH Ur Specific [place] Urine Protein Urine Glucose (UA) Urine Ketones Urine Occult Blood Urine Nitrate Urine Bilirubin Urine Urobilinogen Ur Leukocyte Esterase Urine RBC Urine WBC Ur Squamous Epith Cells Hyaline Casts Urine Mucus Urine Sperm Micro UA Comment Ur Microscopic Review Urine Culture Comments Nasal Screen MRSA (PCR) Random Vancomycin Urine Opiates Screen Ur Barbiturates Screen Ur Amphetamines Screen U Benzodiazepines Scrn Urine Cocaine Screen U Cannabinoids Screen Hepatitis A IgM Ab Hep Bs Antigen Hep B Core IgM Ab Hep C IgG Ab 03/22/18 03/22/18 03/22/18 05:15 05:21 07:52 WBC RBC Hgb Hct MCV MCH MCHC RDW Plt Count MPV Prelim Diff (Auto) Neut % (Auto) Lymph % (Auto) [place] % (Auto) Eos % (Auto) Baso % (Auto) Neut # (Auto) Lymph # (Auto) [place] # (Auto) Eos # (Auto) Baso # (Auto) WBC Differential Diff Scan Seg Neuts % (Manual) Band Neuts % (Manual) Lymphocytes % (Manual) Monocytes % (Manual) Eosinophils % (Manual) Myelocytes % (Man) Abs Neuts (Manual) Nucleated RBCs/100 WBC Differential Comment Platelet Estimate Platelet Morphology RBC Morphology Puncture Site Patient Temperature O2 Saturation ABG pH ABG pCO2 ABG pO2 ABG HCO3 ABG O2 Content ABG Base Excess ABG Methemoglobin Humberto Test Hemoglobin Carboxyhemoglobin O2 Delivery Device Liter Flow Vent Setting Inspired O2 Critical Value Sodium 140 Potassium 3.3 L Chloride 94 L Carbon Dioxide 35.1 H D Anion Gap 11 BUN 33 H Creatinine 3.18 H Estimated GFR 22 L POC Glucose 198 H 225 H Random Glucose 184 H Lactic Acid Calcium 6.0 L* Calcium Adj for Albumin 7.3 L* Magnesium 1.6 D Total Bilirubin 3.0 H AST 915 H ALT 755 H Alkaline Phosphatase 67 Total Creatine Kinase CK-MB (CK-2) CK-MB (CK-2) % Troponin I Total Protein 4.9 L D Albumin 2.4 L Urine Color Urine Clarity Urine pH Ur Specific [place] Urine Protein Urine Glucose (UA) Urine Ketones Urine Occult Blood Urine Nitrate Urine Bilirubin Urine Urobilinogen Ur Leukocyte Esterase Urine RBC Urine WBC Ur Squamous Epith Cells Hyaline Casts Urine Mucus Urine Sperm Micro UA Comment Ur Microscopic Review Urine Culture Comments Nasal Screen MRSA (PCR) Random Vancomycin Urine Opiates Screen Ur Barbiturates Screen Ur Amphetamines Screen U Benzodiazepines Scrn Urine Cocaine Screen U Cannabinoids Screen Hepatitis A IgM Ab Hep Bs Antigen Hep B Core IgM Ab Hep C IgG Ab 03/22/18 03/22/18 03/22/18 09:23 09:45 09:45 WBC RBC Hgb Hct MCV MCH MCHC RDW Plt Count MPV Prelim Diff (Auto) Neut % (Auto) Lymph % (Auto) [place] % (Auto) Eos % (Auto) Baso % (Auto) Neut # (Auto) Lymph # (Auto) [place] # (Auto) Eos # (Auto) Baso # (Auto) WBC Differential Diff Scan Seg Neuts % (Manual) Band Neuts % (Manual) Lymphocytes % (Manual) Monocytes % (Manual) Eosinophils % (Manual) Myelocytes % (Man) Abs Neuts (Manual) Nucleated RBCs/100 WBC Differential Comment Platelet Estimate Platelet Morphology RBC Morphology Puncture Site Right radial Patient Temperature 98.6 O2 Saturation 95 ABG pH 7.59 H* ABG pCO2 38 ABG pO2 84 ABG HCO3 37 H ABG O2 Content 15.0 ABG Base Excess 13.5 H ABG Methemoglobin 1.9 Humberto Test + Hemoglobin 11.1 L Carboxyhemoglobin 0.8 O2 Delivery Device Ventilator Liter Flow Vent Setting See comments Inspired O2 40 Critical Value Yes Sodium Potassium Chloride Carbon Dioxide Anion Gap BUN Creatinine Estimated GFR POC Glucose Random Glucose Lactic Acid 3.8 H Calcium Calcium Adj for Albumin Magnesium Total Bilirubin AST ALT Alkaline Phosphatase Total Creatine Kinase CK-MB (CK-2) CK-MB (CK-2) % Troponin I Total Protein Albumin Urine Color Urine Clarity Urine pH Ur Specific [place] Urine Protein Urine Glucose (UA) Urine Ketones Urine Occult Blood Urine Nitrate Urine Bilirubin Urine Urobilinogen Ur Leukocyte Esterase Urine RBC Urine WBC Ur Squamous Epith Cells Hyaline Casts Urine Mucus Urine Sperm Micro UA Comment Ur Microscopic Review Urine Culture Comments Nasal Screen MRSA (PCR) Random Vancomycin 5.7 Urine Opiates Screen Ur Barbiturates Screen Ur Amphetamines Screen U Benzodiazepines Scrn Urine Cocaine Screen U Cannabinoids Screen Hepatitis A IgM Ab Hep Bs Antigen Hep B Core IgM Ab Hep C IgG Ab 03/22/18 03/22/18 03/22/18 09:45 11:33 12:04 WBC RBC Hgb Hct MCV MCH MCHC RDW Plt Count MPV Prelim Diff (Auto) Neut % (Auto) Lymph % (Auto) [place] % (Auto) Eos % (Auto) Baso % (Auto) Neut # (Auto) Lymph # (Auto) [place] # (Auto) Eos # (Auto) Baso # (Auto) WBC Differential Diff Scan Seg Neuts % (Manual) Band Neuts % (Manual) Lymphocytes % (Manual) Monocytes % (Manual) Eosinophils % (Manual) Myelocytes % (Man) Abs Neuts (Manual) Nucleated RBCs/100 WBC Differential Comment Platelet Estimate Platelet Morphology RBC Morphology Puncture Site Right radial Patient Temperature 98.6 O2 Saturation 96 ABG pH 7.51 H* ABG pCO2 45 H ABG pO2 99 ABG HCO3 36 H ABG O2 Content 16.4 ABG Base Excess 11.8 H ABG Methemoglobin 1.9 Humberto Test + Hemoglobin 12.1 Carboxyhemoglobin 0.5 O2 Delivery Device Ventilator Liter Flow Vent Setting See comments Inspired O2 40 Critical Value Yes Sodium Potassium Chloride Carbon Dioxide Anion Gap BUN Creatinine Estimated GFR POC Glucose 203 H Random Glucose Lactic Acid Calcium Calcium Adj for Albumin Magnesium Total Bilirubin AST ALT Alkaline Phosphatase Total Creatine Kinase 5202 H CK-MB (CK-2) 13.6 H CK-MB (CK-2) % 0.3 Troponin I Total Protein Albumin Urine Color Urine Clarity Urine pH Ur Specific [place] Urine Protein Urine Glucose (UA) Urine Ketones Urine Occult Blood Urine Nitrate Urine Bilirubin Urine Urobilinogen Ur Leukocyte Esterase Urine RBC Urine WBC Ur Squamous Epith Cells Hyaline Casts Urine Mucus Urine Sperm Micro UA Comment Ur Microscopic Review Urine Culture Comments Nasal Screen MRSA (PCR) Random Vancomycin Urine Opiates Screen Ur Barbiturates Screen Ur Amphetamines Screen U Benzodiazepines Scrn Urine Cocaine Screen U Cannabinoids Screen Hepatitis A IgM Ab Hep Bs Antigen Hep B Core IgM Ab Hep C IgG Ab 03/22/18 03/22/18 03/23/18 16:12 22:18 01:31 WBC RBC Hgb Hct MCV MCH MCHC RDW Plt Count MPV Prelim Diff (Auto) Neut % (Auto) Lymph % (Auto) [place] % (Auto) Eos % (Auto) Baso % (Auto) Neut # (Auto) Lymph # (Auto) [place] # (Auto) Eos # (Auto) Baso # (Auto) WBC Differential Diff Scan Seg Neuts % (Manual) Band Neuts % (Manual) Lymphocytes % (Manual) Monocytes % (Manual) Eosinophils % (Manual) Myelocytes % (Man) Abs Neuts (Manual) Nucleated RBCs/100 WBC Differential Comment Platelet Estimate Platelet Morphology RBC Morphology Puncture Site Patient Temperature O2 Saturation ABG pH ABG pCO2 ABG pO2 ABG HCO3 ABG O2 Content ABG Base Excess ABG Methemoglobin Humberto Test Hemoglobin Carboxyhemoglobin O2 Delivery Device Liter Flow Vent Setting Inspired O2 Critical Value Sodium Potassium Chloride Carbon Dioxide Anion Gap BUN Creatinine Estimated GFR POC Glucose 187 H 178 H 210 H Random Glucose Lactic Acid Calcium Calcium Adj for Albumin Magnesium Total Bilirubin AST ALT Alkaline Phosphatase Total Creatine Kinase CK-MB (CK-2) CK-MB (CK-2) % Troponin I Total Protein Albumin Urine Color Urine Clarity Urine pH Ur Specific [place] Urine Protein Urine Glucose (UA) Urine Ketones Urine Occult Blood Urine Nitrate Urine Bilirubin Urine Urobilinogen Ur Leukocyte Esterase Urine RBC Urine WBC Ur Squamous Epith Cells Hyaline Casts Urine Mucus Urine Sperm Micro UA Comment Ur Microscopic Review Urine Culture Comments Nasal Screen MRSA (PCR) Random Vancomycin Urine Opiates Screen Ur Barbiturates Screen Ur Amphetamines Screen U Benzodiazepines Scrn Urine Cocaine Screen U Cannabinoids Screen Hepatitis A IgM Ab Hep Bs Antigen Hep B Core IgM Ab Hep C IgG Ab 03/23/18 03/23/18 03/23/18 04:58 05:00 05:00 WBC 13.0 H RBC 3.33 L Hgb 10.3 L Hct 29.3 L MCV 88.2 MCH 31.0 MCHC 35.2 RDW 13.5 Plt Count 71 L MPV 10.0 Prelim Diff (Auto) Slide review pending Neut % (Auto) 89.6 H Lymph % (Auto) 6.2 L [place] % (Auto) 4.0 Eos % (Auto) 0.0 Baso % (Auto) 0.2 Neut # (Auto) 11.7 H Lymph # (Auto) 0.8 L [place] # (Auto) 0.5 Eos # (Auto) 0.0 Baso # (Auto) 0.0 WBC Differential . Diff Scan Auto diff confirmed Seg Neuts % (Manual) Band Neuts % (Manual) Lymphocytes % (Manual) Monocytes % (Manual) Eosinophils % (Manual) Myelocytes % (Man) Abs Neuts (Manual) Nucleated RBCs/100 WBC Differential Comment . Platelet Estimate Low L Platelet Morphology Enlarged H RBC Morphology Puncture Site Patient Temperature O2 Saturation ABG pH ABG pCO2 ABG pO2 ABG HCO3 ABG O2 Content ABG Base Excess ABG Methemoglobin Humberto Test Hemoglobin Carboxyhemoglobin O2 Delivery Device Liter Flow Vent Setting Inspired O2 Critical Value Sodium 142 Potassium 2.9 L* Chloride 98 Carbon Dioxide 34.8 H Anion Gap 9 BUN 36 H Creatinine 3.06 H Estimated GFR 23 L POC Glucose 206 H Random Glucose 194 H Lactic Acid Calcium 6.0 L* Calcium Adj for Albumin 7.4 L* Magnesium Total Bilirubin 1.0 AST 408 H ALT 548 H Alkaline Phosphatase 60 Total Creatine Kinase CK-MB (CK-2) CK-MB (CK-2) % Troponin I Total Protein 4.9 L Albumin 2.2 L Urine Color Urine Clarity Urine pH Ur Specific [place] Urine Protein Urine Glucose (UA) Urine Ketones Urine Occult Blood Urine Nitrate Urine Bilirubin Urine Urobilinogen Ur Leukocyte Esterase Urine RBC Urine WBC Ur Squamous Epith Cells Hyaline Casts Urine Mucus Urine Sperm Micro UA Comment Ur Microscopic Review Urine Culture Comments Nasal Screen MRSA (PCR) Random Vancomycin 18.1 Urine Opiates Screen Ur Barbiturates Screen Ur Amphetamines Screen U Benzodiazepines Scrn Urine Cocaine Screen U Cannabinoids Screen Hepatitis A IgM Ab Hep Bs Antigen Hep B Core IgM Ab Hep C IgG Ab 03/23/18 08:48 WBC RBC Hgb Hct MCV MCH MCHC RDW Plt Count MPV Prelim Diff (Auto) Neut % (Auto) Lymph % (Auto) [place] % (Auto) Eos % (Auto) Baso % (Auto) Neut # (Auto) Lymph # (Auto) [place] # (Auto) Eos # (Auto) Baso # (Auto) WBC Differential Diff Scan Seg Neuts % (Manual) Band Neuts % (Manual) Lymphocytes % (Manual) Monocytes % (Manual) Eosinophils % (Manual) Myelocytes % (Man) Abs Neuts (Manual) Nucleated RBCs/100 WBC Differential Comment Platelet Estimate Platelet Morphology RBC Morphology Puncture Site Patient Temperature O2 Saturation ABG pH ABG pCO2 ABG pO2 ABG HCO3 ABG O2 Content ABG Base Excess ABG Methemoglobin Humberto Test Hemoglobin Carboxyhemoglobin O2 Delivery Device Liter Flow Vent Setting Inspired O2 Critical Value Sodium Potassium Chloride Carbon Dioxide Anion Gap BUN Creatinine Estimated GFR POC Glucose 196 H Random Glucose Lactic Acid Calcium Calcium Adj for Albumin Magnesium Total Bilirubin AST ALT Alkaline Phosphatase Total Creatine Kinase CK-MB (CK-2) CK-MB (CK-2) % Troponin I Total Protein Albumin Urine Color Urine Clarity Urine pH Ur Specific [place] Urine Protein Urine Glucose (UA) Urine Ketones Urine Occult Blood Urine Nitrate Urine Bilirubin Urine Urobilinogen Ur Leukocyte Esterase Urine RBC Urine WBC Ur Squamous Epith Cells Hyaline Casts Urine Mucus Urine Sperm Micro UA Comment Ur Microscopic Review Urine Culture Comments Nasal Screen MRSA (PCR) Random Vancomycin Urine Opiates Screen Ur Barbiturates Screen Ur Amphetamines Screen U Benzodiazepines Scrn Urine Cocaine Screen U Cannabinoids Screen Hepatitis A IgM Ab Hep Bs Antigen Hep B Core IgM Ab Hep C IgG Ab Result Diagrams: 03/24/18 04:24 03/24/18 04:24 Microbiology: Microbiology 03/21/18 12:50 Gram Stain - Final Sputum - Endotracheal Sputum Culture - Preliminary 03/21/18 06:40 Aerobic Blood Culture - Preliminary Blood - Peripheral Anaerobic Blood Culture - Preliminary No growth in 1 day 03/21/18 06:30 Aerobic Blood Culture - Preliminary Blood - Line gram positive cocci Anaerobic Blood Culture - Preliminary No growth in 1 day 03/21/18 06:45 Aerobic Blood Culture - Preliminary Blood - Peripheral Anaerobic Blood Culture - Preliminary No growth in 1 day 03/21/18 06:35 Aerobic Blood Culture - Preliminary Blood - Line Anaerobic Blood Culture - Preliminary No growth in 1 day 03/21/18 06:10 Influenza Types A,B Antigen - Final Nasal Wash Negative for FLU A and B antigen Infection due to influenza A or B cannot be ruled out since the antigen present in the sample may be below the detection limit of the test. Patient/Family Conference Issues Discussed: * Palliative care role, purpose, approach * Additional medical, psychosocial, and spiritual history * Patients general health, functional status, and cognitive changes in the months leading up to the current hospitalization * Patient/family understanding of the current medical problems * Patient/family understanding of prognosis * Patients goals of care as best understood from advance directives and/or conversations and/or values * Current medical treatment options and benefits/burdens of those options * Likely scenarios comparing ongoing aggressive care with a transition to comfort measures only * Questions answered to the best of my ability * Palliative care contact information provided Assessment and Plan - Symptom Scale (1) Dyspnea 0-10 Scale: Unable to quantify (2) Seizure 0-10 Scale: Unable to quantify (3) Anoxic encephalopathy 0-10 Scale: Unable to quantify Pertinent Non-Medical Issues: Psychosocial: Per 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 Available information indicates has a brother, mother and father. Father reported recently . Per review of EMR patient with several previous ED visits for drug use related complications. Patient father in the past 1 year of drug related complications. Brother Raúl confirms social hx. Reports pt w son Christ who has just turned 18. Pt not . Spiritual: Not known; multimedia authoring specialist has been by for support. Legal: At this time patient incapacitated and unable to make decisions. Does not appear he will regain ability. Per [place] statutes legal decision making would fall to his parents. Father reported . Mother may be estranged. Otherwise he has a brother, who may serve as proxy if mother is unwilling or unable. Ethical issues impacting care: No ethical issues identified. Important Contacts: Father Christopher Mann [phone] (father reported 1 yr ago) mother Eugenia Mann ([place], reported estranged from pt, has restraining order against him) brothjeremy Mann Prognosis: This patient was admitted status post cardiac arrest out of hospital. Unknown amount of time down. He was unstable upon presentation, hypothermic. He has multiorgan failure, severe brain injury. Prognosis for survival poor. Prognosis for any type of meaningful recovery poor. Code Status: Full Code Plan: Legal decision maker:At this time patient incapacitated and unable to make decisions. Does not appear he will regain ability. Per [place] statutes legal decision making would fall to his parents. Father reported . Mother may be estranged. Otherwise he has a brother, who may serve as proxy if mother is unwilling or unable. I will check w legal regarding proxy decision making of family member with restraining order. counselor aide has advised that restraining order has , and if mother were willing she would still be appropriate proxy. -- Later notified pt has a son Christ who just turned 18. This son would first be approp proxy IF he wishes to serve as such, then would fall to mother and if mother declines , then brothjeremy Olsen would be next appropriate proxy. Goals: TBD, pending identification of appropriate legal decision maker CODE STATUS: Full code by default SYMPTOMS: --Dyspnea-intubated for unresponsive, airway protection. Unlabored respirations on mechanical vent no spontaneous respirations. --Encephalopathy-out of hospital arrest. Unknown amount of downtime. Severe cortical brain injury. Absence of brainstem reflexes. Brain flow study positive. --Pain-given extent of brain injury unlikely patient is able to feel pain sensation, however potential sources would include recent prolonged CPR, invasive procedures. no signs or sx of pain. On fentanyl drip for seizures/ sedation. --Seizures-patient developed seizures, underlying anoxic brain injury, post out of hospital arrest. Sedatives were initiated for this no seizures since initiation. Neurology following. Palliative care will continue to follow during hospital course as condition evolves, to assist patient/decision-maker with understanding of medical conditions, weighing benefits/burdens of treatment options, for clarification of goals of treatment. Additionally will assist with any symptoms of palliative concern Appreciation Thank you for the opportunity to participate in the care of Beto Mann. Attestation Attestation: To help prompt me to consider important information that might be impacting today's encounter and assessment, information from prior notes written by myself or my colleagues may have been "brought forward" into today's note. My signature on this note, however, is an attestation that I personally performed the exam, history, and/or decision-making noted today, and, unless otherwise indicated, the interactions with patient, family, and staff as well as the review of records all occurred today. I also attest that the listed assessment and stated plan reflect my best clinical judgment today based on the combination of historical information, prior notes, and today's exam/ interactions. When time spent is documented, it refers only to time spent today by the signer, or if indicated, combined time spent today by collaborating physician/nurse practitioner.
--- NOTE | 2018-03-23 15:19 | P.PNNP ---
Subjective Interval history: Patient with minimal brain activity, remains comatose on ventilator Physical Exam Vital signs: Vital Signs 03/22/18 16:20 03/22/18 20:00 03/22/18 20:15 Temperature 98.4 F Pulse Rate 100 H 97 H 96 H Respiratory Rate 20 20 20 Blood Pressure 106/57 L Pulse Oximetry 98 98 03/22/18 20:20 03/22/18 22:50 03/23/18 00:00 Temperature 97.9 F Pulse Rate 89 Respiratory Rate 20 20 20 Blood Pressure 104/56 L Pulse Oximetry 98 98 98 03/23/18 00:05 03/23/18 04:00 03/23/18 04:07 Temperature 97.8 F Pulse Rate 90 80 81 Respiratory Rate 20 20 20 Blood Pressure 105/57 L Pulse Oximetry 99 98 98 03/23/18 07:00 03/23/18 07:46 03/23/18 07:47 Temperature 97.6 F Pulse Rate 74 75 Respiratory Rate 20 20 20 Blood Pressure 105/62 Pulse Oximetry 98 98 03/23/18 11:00 03/23/18 11:52 03/23/18 11:53 Temperature 97.9 F Pulse Rate 74 72 Respiratory Rate 20 20 20 Blood Pressure 100/57 L Pulse Oximetry 98 99 Intake & Output 03/22/18 03/23/18 03/23/18 18:59 06:59 18:59 Intake Total 1815 / 1815 2641 / 2641 300 / 300 Output Total 500 / 500 660 / 660 Balance 1315 / 1315 1980 / 1980 300 / 300 Weight 88.133 kg Intake: IV 1815 / 1815 2450 / 2450 300 / 300 D5W/Normal Saline Inj 1,000 ML 2000 / 2000 @ 100 mls/hr IV.CONT .Q10H ANGIE Rx#:[id number] Diprivan 1000 mg/100 ml Inj 1, 300 / 300 100 / 100 000 mg In 100 ml @ 5 MCG/KG/MIN 2.858 mls/hr IV.CONT TITRATE PRN Rx#:[id number] Sodium Bicarbonate 8.4% Inj 150 600 / 600 MEQ In D5W Inj 850 ML @ 150 mls/hr IV.CONT .Q6H40M ANGIE Rx#: [id number] Ofirmev Inj 1,000 mg In 100 ml 100 / 100 @ 300 mls/hr IV.SIG Q6H PRN Rx# :[id number] Azactam Inj 1,000 MG In NS Inj 200 / 200 100 / 100 100 / 100 100 ML @ 200 mls/hr IV.SIG Q8H ANGIE Rx#:[id number] KCl 40 mEq Premix Inj 40 meq In 200 / 200 100 ml @ 25 mls/hr IV.SIG Q4H ANGIE Rx#:[id number] Vancomycin Inj 1,500 MG In NS 515 / 515 Inj 500 ML @ 257.5 mls/hr IV. SIG ONCE ONE Rx#:[id number] fentaNYL 10 mcg/mL Premix Drip 250 / 250 2,500 mcg In 250 ml @ 50 MCG/HR 5 mls/hr IV.SIG TITRATE PRN Rx #:[id number] Keppra 1000 mg/100 mL Premix 100 / 100 100 ML @ 400 mls/hr IV.SIG Q12H ANGIE Rx#:[id number] Oral 0 / 0 0 / 0 Tube Feeding 191 / 191 Output: Urine Amount (Catheter) 500 / 500 660 / 660 Indwelling Urethral Catheter 500 / 500 660 / 660 Other: # Bowel Movements 0 Narrative: GENERAL: Well-nourished, well-developed, patient is comatose and intubated patient. SKIN: Cold and dry. HEAD: Normocephalic. EYES: No scleral icterus. No injection or drainage. NECK: Supple, trachea midline. No JVD intubated CARDIOVASCULAR: Regular rate and rhythm without murmurs, gallops, or rubs. RESPIRATORY: Breath sounds equal bilaterally. No accessory muscle use. GASTROINTESTINAL: Abdomen soft, non-tender, nondistended. EXTREMITIES: Cold no edema NEUROLOGICAL: Unresponsive and comatose - Urinary Catheter Management Indwelling Urethral Catheter Cath placed during this visit: yes Reason for continuing: Hourly intake/output Insertion date: 03/21/18 Insertion time: 06:00 Assessment and Plan - Assessment (1) Acute renal failure Code(s): N17.9 - Acute kidney failure, unspecified Status: Acute Plan: Acute renal failure most likely due to acute tubular necrosis and underlying rhabdomyolysis improved Continue supportive care Patient potassium was replaced I will juice half-normal saline bicarbonate continue to hydrate him as he has underlying rhabdomyolysis Follow CPK Follow BMP Patient has minimal brain activity and possible withdrawal is discussed (2) Anoxic encephalopathy Code(s): G93.1 - Anoxic brain damage, not elsewhere classified Status: Acute (3) PEA (Pulseless electrical activity) Code(s): I46.9 - Cardiac arrest, cause unspecified Status: Acute
[2018-03-23] MEDS ORDERED: Sodium Bicarbonate 8.4% Inj 75 MEQ in Sodium Chloride 0.45 % Inj 925 ML IV.CONT SCH (16:00)
[2018-03-23] MEDS: SODIUM BICARBONATE IV.SIG SCH ×2 (18:30→21:04)
[2018-03-23] MEDS: SODIUM CHLORIDE 0.45% IV.SIG SCH ×2 (18:30→21:04)
[2018-03-23 19:06] LABS: CKMB Percent 0.6 % (0.0-4.0); Creatine Kinase MB 31.9 ng/mL (0.5-3.6)
[2018-03-23 22:27] LABS: Amphetamine Urine With Conf Neg (Neg); Cocaine Urine With Conf Neg (Neg); Opiates Urine With Conf Neg (Neg)
[2018-03-23 22:31] LABS: Benzodiazepine Urine With Conf Pos (Neg); Cannabinoid Urine With Conf Neg (Neg)
[2018-03-24] MEDS: Dextrose 5%/NaCl 0.9% Inj 1,000 ML IV.CONT SCH ×2 (00:19→13:28)
[2018-03-24] MEDS: Insulin NovoLOG Aspart Correctional Sugar Inj SQ SCH ×5 (00:19→17:37)
[2018-03-24] MEDS: SODIUM BICARBONATE IV.SIG SCH ×4 (02:24→17:55)
[2018-03-24] MEDS: SODIUM CHLORIDE 0.45% IV.SIG SCH ×4 (02:24→17:55)
[2018-03-24] MEDS: Chlorhexidine Gluconate 2% 1 Pack (2 Cloths) TOPICAL SCH (04:58)
[2018-03-24 06:08] LABS: Baso % (Auto) 0.2 % (0.0-2.0); Hematocrit 34.5 % (39.0-51.0); Hemoglobin 11.7 gm/dL (13.0-17.0); Lymph # (Auto) 0.8 th/mm3 (1.0-4.8); Lymph % (Auto) 4.2 % (9.0-44.0); Mean Corpuscular HGB Conc 33.8 % (32.0-36.0); Mean Corpuscular Hemoglobin 30.5 pg (27.0-34.0); Mean Corpuscular Volume 90.2 fL (80.0-100.0); Mono # (Auto) 0.9 th/mm3 (0.0-0.9); Neut # (Auto) 16.1 th/mm3 (1.8-7.7); Neut % (Auto) 90.6 % (16.0-70.0); Platelet Count 109 th/mm3 (150-450); Red Blood Count 3.83 mil/mm3 (4.50-5.90); Red Cell Distribution Width 13.7 % (11.6-17.2); White Blood Count 17.7 th/mm3 (4.0-11.0)
[2018-03-24] MEDS: Hydrocortisone Sod Succinate 100 MG Vial IV.PUSH SCH ×2 (06:39→13:35)
[2018-03-24 07:01] LABS: Albumin 2.5 g/dL (3.4-5.0); Calcium 7.1 mg/dL (8.5-10.1); Carbon Dioxide 32.8 meq/L (21.0-32.0); Potassium 3.1 meq/L (3.5-5.1); Total Protein 5.8 g/dL (6.4-8.2); Vancomycin,Random 8.1 Comment
[2018-03-24 07:09] LABS: Lymphocytes 5 % (9-44); Monocytes 4 % (0-8); Platelet Morphology Normal (Normal)
[2018-03-24 07:19] LABS: CKMB Percent 0.6 % (0.0-4.0)
--- NOTE | 2018-03-24 08:06 | P.PNCC ---
Subjective Subjective Remarks/Hospital Course: Patient is a 37-year-old male with a past medical history of polysubstance abuse who presented to [facility] ED via EMSstatus post cardiopulmonary arrest. He was found unresponsive outside on the porch and when EMS arrived, the patient was found pulseless. CPR was initiated and the patient was in asystole followed by a PEA arrest. ACLS protocol was initiated , and the patient received epinephrine multiple times en route and bicarbonate. Combitube intubation was performed successfully. The patient arrived in the ED, while CPR was performed by EMS. On arrival, he was hypotensive with a systolic blood pressure in the 80s, hypothermic with a temperature of 84-85 degrees Fahrenheit. In the ED, he was given a 3 liter bolus of normal saline, intubated with 8.0 ET tube, and a right IJ central line was placed by ED physician. Also, he was started on Levophed, which is currently at 10 mcg. His laboratory data is significant for severe lactic acidosis with a lactic acid level of 19.5, acute renal failure with a creatinine of 2.42. In addition , the patient was hypoglycemic with a blood sugar of 45 on the CMP. Also, he has leukocytosis with a WBC of 15.6. Initial ABG on the ventilator showed severe respiratory and metabolic acidosis with a pH of 6.91, CO2 65, PaO2 348, bicarbonate of 12, saturations of 97%. Chest x-ray showed bilateral perihilar patchy airspace consolidation. A CT scan of the brain was obtained, which showed diffuse cerebral swelling with decreased size of the ventricles. The patient is unresponsive and not on any sedation. 03/22 Patient remains sedated and intubated, Tmax 103.1. Seizures overnight given Keppra and Cerebyx loading dose. EEG yesterday Flat line appearance in addition to portions of electrical artifact. severe diffuse cortical injury. On bicarb drip 03/23 remains sedated, orally intubated on mechanical ventilation. 03/24 Patient remains sedated and intubated. Afebrile. Hypertensive Objective Vital Signs / I&O: Vital Signs 03/23/18 11:00 03/23/18 11:52 03/23/18 11:53 Temperature 97.9 F Pulse Rate 74 72 Respiratory Rate 20 20 20 Blood Pressure 100/57 L Pulse Oximetry 98 99 03/23/18 15:00 03/23/18 16:13 03/23/18 16:14 Temperature 98.3 F Pulse Rate 73 70 Respiratory Rate 21 20 20 Blood Pressure 103/59 L Pulse Oximetry 98 99 03/23/18 19:00 03/23/18 20:00 03/23/18 20:52 Temperature 97.8 F Pulse Rate 83 84 84 Respiratory Rate 24 25 H Blood Pressure 148/89 H Pulse Oximetry 99 99 03/23/18 23:00 03/23/18 23:43 03/24/18 00:45 Temperature 98.5 F Pulse Rate 96 H 99 H 97 H Respiratory Rate 27 H 24 Blood Pressure 165/89 H Pulse Oximetry 99 99 03/24/18 03:00 03/24/18 03:20 03/24/18 04:21 Temperature 99.6 F Pulse Rate 96 H 97 H 90 Respiratory Rate 23 24 Blood Pressure 178/95 H Pulse Oximetry 98 98 Intake & Output 03/23/18 03/24/18 03/24/18 18:59 06:59 18:59 Intake Total 1850 / 1850 1423 / 1423 500 / 500 Output Total 1400 / 1400 Balance 1850 / 1850 23 / 23 500 / 500 Weight 88.1 kg Intake: IV 1300 / 1300 675 / 675 500 / 500 D5W/Normal Saline Inj 1,000 ML 1000 / 1000 @ 100 mls/hr IV.CONT .Q10H ANGIE Rx#:[id number] Azactam Inj 1,000 MG In NS Inj 100 / 100 200 / 200 100 ML @ 200 mls/hr IV.SIG Q8H ANGIE Rx#:[id number] KCl 40 mEq Premix Inj 40 meq In 200 / 200 100 ml @ 25 mls/hr IV.SIG Q4H ANGIE Rx#:[id number] Sodium Bicarbonate 8.4% Inj 37. 475 / 475 500 / 500 5 MEQ In 1/2 Normal Saline Inj 462.5 ML @ 100 mls/hr IV.SIG Q5H ANGIE Rx#:[id number] Tube Feeding 550 / 550 748 / 748 Output: Urine Amount (Catheter) 1400 / 1400 Indwelling Urethral Catheter 1400 / 1400 Result Diagrams: 03/24/18 04:24 03/24/18 04:24 Other Results: Laboratory Results - last 12 hr 03/23/18 03/23/18 03/24/18 20:09 21:31 00:18 WBC RBC Hgb Hct MCV MCH MCHC RDW Plt Count MPV Prelim Diff (Auto) Neut % (Auto) Lymph % (Auto) [place] % (Auto) Eos % (Auto) Baso % (Auto) Neut # (Auto) Lymph # (Auto) [place] # (Auto) Eos # (Auto) Baso # (Auto) WBC Differential Seg Neuts % (Manual) Band Neuts % (Manual) Lymphocytes % (Manual) Monocytes % (Manual) Abs Neuts (Manual) Differential Comment Platelet Estimate Platelet Morphology Sodium Potassium Chloride Carbon Dioxide Anion Gap BUN Creatinine Estimated GFR POC Glucose 117 H 164 H Random Glucose Calcium Calcium Adj for Albumin Total Bilirubin AST ALT Alkaline Phosphatase Total Creatine Kinase CK-MB (CK-2) CK-MB (CK-2) % Total Protein Albumin Random Vancomycin Urine Opiates Screen Neg Ur Barbiturates Screen Neg Ur Amphetamine Screen Neg U Benzodiazepines Scrn Pos H Urine Cocaine Screen Neg U Cannabinoids Screen Neg 03/24/18 03/24/18 03/24/18 04:24 04:24 04:24 WBC 17.7 H RBC 3.83 L Hgb 11.7 L Hct 34.5 L MCV 90.2 MCH 30.5 MCHC 33.8 RDW 13.7 Plt Count 109 L D MPV 11.0 Prelim Diff (Auto) Slide review pending Neut % (Auto) 90.6 H Lymph % (Auto) 4.2 L [place] % (Auto) 5.0 Eos % (Auto) 0.0 Baso % (Auto) 0.2 Neut # (Auto) 16.1 H Lymph # (Auto) 0.8 L [place] # (Auto) 0.9 Eos # (Auto) 0.0 Baso # (Auto) 0.0 WBC Differential Manual diff final Seg Neuts % (Manual) 79 H Band Neuts % (Manual) 12 H Lymphocytes % (Manual) 5 L Monocytes % (Manual) 4 Abs Neuts (Manual) 16.1 H Differential Comment . Platelet Estimate Low L Platelet Morphology Normal Sodium 144 Potassium 3.1 L Chloride 102 Carbon Dioxide 32.8 H Anion Gap 9 BUN 37 H Creatinine 2.42 H Estimated GFR 30 L POC Glucose 144 H Random Glucose 131 H Calcium 7.1 L* D Calcium Adj for Albumin 8.3 L D Total Bilirubin 1.0 AST 314 H ALT 472 H Alkaline Phosphatase 89 Total Creatine Kinase 5445 H CK-MB (CK-2) 33.0 H CK-MB (CK-2) % 0.6 Total Protein 5.8 L D Albumin 2.5 L Random Vancomycin 8.1 Urine Opiates Screen Ur Barbiturates Screen Ur Amphetamine Screen U Benzodiazepines Scrn Urine Cocaine Screen U Cannabinoids Screen 03/24/18 07:27 WBC RBC Hgb Hct MCV MCH MCHC RDW Plt Count MPV Prelim Diff (Auto) Neut % (Auto) Lymph % (Auto) [place] % (Auto) Eos % (Auto) Baso % (Auto) Neut # (Auto) Lymph # (Auto) [place] # (Auto) Eos # (Auto) Baso # (Auto) WBC Differential Seg Neuts % (Manual) Band Neuts % (Manual) Lymphocytes % (Manual) Monocytes % (Manual) Abs Neuts (Manual) Differential Comment Platelet Estimate Platelet Morphology Sodium Potassium Chloride Carbon Dioxide Anion Gap BUN Creatinine Estimated GFR POC Glucose 177 H Random Glucose Calcium Calcium Adj for Albumin Total Bilirubin AST ALT Alkaline Phosphatase Total Creatine Kinase CK-MB (CK-2) CK-MB (CK-2) % Total Protein Albumin Random Vancomycin Urine Opiates Screen Ur Barbiturates Screen Ur Amphetamine Screen U Benzodiazepines Scrn Urine Cocaine Screen U Cannabinoids Screen Imaging: Abdomen Ultrasound 03/21/18 00:00 CONCLUSION: 1. Small right pleural effusion and mild amount of ascites. 2. 2 focal lesions in the liver have uniform hyperechogenicity, suggestive of hemangiomata. Chest X-Ray 03/21/18 06:32 CONCLUSION: Lines and tubes appear appropriate in position. Bilateral perihilar patchy airspace consolidation is present. Pattern consistent with noncardiac pulmonary edema. Head CT 03/21/18 06:36 CONCLUSION: 1. There is evidence of diffuse cerebral swelling with decreased size of the ventricles as compared to the prior exam and poor visualization of the sulci as compared to the prior exam. . Brain Flow Nuclear Medicine 03/22/18 00:00 CONCLUSION: 1. There is positive blood flow to the brain with mild brain activity. Head MRI 03/22/18 00:00 CONCLUSION: 1. Symmetric and scattered areas of diffusion restriction in both cerebral hemispheres are probably secondary to an anoxic brain injury. Areas involved are the occiput, portions of the temporal and high parietal lobes bilaterally. 2. No acute intracranial hemorrhage. 3. Cerebellar tonsillar ectopia. Objective Remarks: GENERAL: Patient is 37 yo intubated, sedated critically ill. SKIN: Warm and dry. HEAD: Normocephalic. EYES: Pupils 2 mm nonreactive no corneal reflex No scleral icterus. No injection or drainage. NECK: Supple, trachea midline. No JVD or lymphadenopathy. CARDIOVASCULAR: Regular rate and rhythm without murmurs, gallops, or rubs. RESPIRATORY: Breath sounds equal bilaterally. No accessory muscle use. GASTROINTESTINAL: Abdomen soft, non-tender, nondistended. MUSCULOSKELETAL: No cyanosis, or edema. Neuro: Sedated, intubated. No involuntary movements seen. no gag reflex, no flexion or withdrawal to tactile stimuli Assessment and Plan - Assessment and Plan Plan: 1. VDRF 2. s/p cardiopulmonary arrest. 3. Anoxic brain injury. 4. Aspiration pneumonia. 5. Polysubstance abuse UDS + amphetamines and opiates. 6. Lactic acidemia 7. Acute kidney injury. 8. Elevated liver enzymes. 9. Leukocytosis. 10. Anemia, thrombocytopenia Plan Neuro: On Diprivan, Fentanyl infusion for sedation. Daily sedation vacation. Given Cerebyx and Keppra overnight. On Keppra 1gram IV Q12 CT brain diffuse cerebral swelling. MRI brain: Symmetric and scattered areas of diffusion restriction in both cerebral hemispheres are probably secondary to an anoxic brain injury. Areas involved are the occiput, portions of the temporal and high parietal lobes bilaterally. No acute intracranial hemorrhage. EEG: Flat line appearance in addition to portions of electrical artifact, severe diffuse cortical injury Neuro is following. Cerebral flow study: Positive blood flow to the brain with mild brain activity. Pulm: Continue with vent support and maintain sats > 92%. Bronchodilators, ICU vent bundle. on stress dose steroids HC 100 mg IV Q8 CV: Monitor HR and BP keep MAP>65mmHg Place on Cardizem 60mg Q6 for BP/HR control. Lopressor 2.5mg IV Q6PRN SBP> 160 Serial lactic acid monitoring ( trending down) Patient was not a candidate for [employer] Cool due to hemodynamic instability, severe lactic acidemia, multiorgan injury, diffuse cerebral swelling on CT of brain and anoxic brain injury. Echo showed EF 60-65% : Monitor renal function, intake and output, and avoid nephrotoxins. US abdomen: Small right pleural effusion and mild amount of ascites. 2 focal lesions in the liver have uniform hyperechogenicity, suggestive of hemangiomata. Renal is following- on bicarb drip ( NS=2amps bicarb @75ml/hr) Cr: 2.42 from 3.06 GI: on Pepcid for gastrointestinal prophylaxis. Monitor LFT's, Hepatitis profile: Hep C IgG ab reactive Tube feeds- Nepro with goal rate 40ml/hr ID: Continue abx( aztreonam, Vanco )Monitor for signs of infection( fever and WBC) BC 03/21: Haemophilus, Stre Viridans. Check BC x 2 sets today Sputum cx 03/21: Pending nasal washing screening for influenza is negative. Endo: SSI with Accu-Cheks every 4 hours. Heme: Monitor CBC. GI prophylaxis on Pepcid, DVT prophylaxis with SCD Palliative care is following Lines: Right IJ central line was placed by ED physician. CCT 30 mins excluding procedures
--- NOTE | 2018-03-24 08:34 | P.PNNEU ---
Subjective Subjective Comments: No acute events Active Medications: Active Medications Al Hydroxide/Mg Hydroxide (Milk Of Magntanisha Liq) 30 ml PO Q12H PRN PRN Reason: Mild Constipation Albuterol (Duoneb Neb (Prn)) 1 ampul NEB Q2HR NEB PRN PRN Reason: WHEEZING Albuterol (Duoneb Neb (Angie)) 1 ampul NEB Q4HR NEB ANGIE Last Admin: 03/24/18 04:21 Dose: 1 ampul Bisacodyl (Dulcolax Supp) 10 mg RECTAL DAILY PRN PRN Reason: SEVERE CONSITIPATION Chlorhexidine Gluconate (Chlorhexidine 2% Cloth) 3 pack TOPICAL DAILY@0400 ANGIE Stop: 03/27/18 03:59 Last Admin: 03/24/18 04:58 Dose: 3 pack Chlorhexidine Gluconate (Chlorhexidine 2% Cloth) 3 pack TOPICAL DAILY@0400 PRN PRN Reason: Extra cloth needed Stop: 03/27/18 03:59 Dextrose (D50w Vial) 50 ml IV.PUSH UNSCH PRN PRN Reason: PER HYPOGLYCEMIA PROTOCOL Diltiazem HCl (Cardizem) 60 mg PO QID [facility] Glucagon (Glucagon Inj) 1 mg OTHER PRN PRN PRN Reason: for Hypoglycemia Protocol Hydrocortisone Sodium Succinate (Solucortef Inj) 100 mg IV.PUSH Q8HR [facility] Last Admin: 03/24/18 06:39 Dose: 100 mg Norepinephrine Bitartrate (Levophed-Dextrose 4 Mg/250 Ml Drip) 4 mg in 250 mls @ 7.5 mls/hr IV.SIG TITRATE PRN; Protocol PRN Reason: Per Protocol Last Titration: 03/23/18 08:53 Dose: 0 mcg/min, 0 mls/hr Aztreonam 1,000 mg/ Sodium (Chloride) 100 mls @ 200 mls/hr IV.SIG Q8H [facility] Last Infusion: 03/24/18 00:54 Dose: Infused Fentanyl (Fentanyl 10 Mcg/Ml Premix Drip) 2,500 mcg in 250 mls @ 5 mls/hr IV.SIG TITRATE PRN; Protocol PRN Reason: Per Protocol Last Titration: 03/24/18 06:39 Dose: 0 mcg/hr, 0 mls/hr Propofol (Diprivan 1000 Mg/100 Ml Inj) 1,000 mg in 100 mls @ 2.858 mls/hr IV.CONT TITRATE PRN; Protocol PRN Reason: Per Protocol Last Titration: 03/24/18 06:39 Dose: 0 mcg/kg/min, 0 mls/hr Midazolam HCl (Versed Inj) 100 mg in 100 mls @ 2 mls/hr IV.CONT TITRATE PRN; Protocol PRN Reason: See protocol Last Titration: 03/23/18 08:54 Dose: 0 mg/hr, 0 mls/hr Acetaminophen (Ofirmev Inj) 1,000 mg in 100 mls @ 300 mls/hr IV.SIG Q6H PRN PRN Reason: FEVER > 101 F Last Infusion: 03/22/18 07:43 Dose: Infused Dextrose/Sodium Chloride (D5w/Normal Saline Inj) 1,000 mls @ 100 mls/hr IV.CONT .Q10H ANGIE Last Admin: 03/24/18 00:19 Dose: Not Given Sodium Bicarbonate 75 meq/ (Sodium Chloride) 1,000 mls @ 100 mls/hr IV.CONT .Q10H ANGIE Sodium Bicarbonate 37.5 meq/ (Sodium Chloride) 500 mls @ 100 mls/hr IV.SIG Q5H ANGIE Last Infusion: 03/24/18 07:37 Dose: Infused Insulin Aspart (Novolog Insulin Correctional Sugar Inj) 0 unit SQ Q4HR ANGIE; Protocol Last Admin: 03/24/18 04:58 Dose: Not Given Lactulose (Lactulose Liq) 30 ml PO DAILY PRN PRN Reason: SEVERE CONSITIPATION Metoprolol Tartrate (Lopressor Inj) 2.5 mg IV.PUSH Q6H PRN PRN Reason: SBP>160, DBP>90 Pantoprazole Sodium (Protonix Inj) 40 mg IV.PUSH DAILY ANGIE Last Admin: 03/23/18 08:50 Dose: 40 mg Pharmacy Profile Note (Vancomycin Consult Pharmacy) 1 each OTHER UNSCH PRN PRN Reason: Pharmacy to dose Sennosides (Senokot) 17.2 mg PO Q12H PRN PRN Reason: Moderate Constipation Sodium Chloride (Ns Flush) 2 ml IV.FLUSH BID ANGIE Last Admin: 03/23/18 21:03 Dose: Not Given Sodium Chloride (Ns Flush) 2 ml IV.FLUSH PRN PRN PRN Reason: FLUSH AFTER USING IV ACCESS Terbutaline Sulfate (Brethine Inj) 1 mg SQ UNSCH PRN PRN Reason: For Extravasation Allergies/Adverse Reactions: Allergies Allergy/AdvReac Type Severity Reaction Status Date / Time No Allergy Information Allergy Verified 03/21/18 06:25 Available Review of Systems unobtainable due to endotracheal tube, unobtainable due to mental condition Physical Exam Vital signs: Vital Signs 03/23/18 11:00 03/23/18 11:52 03/23/18 11:53 Temperature 97.9 F Pulse Rate 74 72 Respiratory Rate 20 20 20 Blood Pressure 100/57 L Pulse Oximetry 98 99 03/23/18 15:00 03/23/18 16:13 03/23/18 16:14 Temperature 98.3 F Pulse Rate 73 70 Respiratory Rate 21 20 20 Blood Pressure 103/59 L Pulse Oximetry 98 99 03/23/18 19:00 03/23/18 20:00 03/23/18 20:52 Temperature 97.8 F Pulse Rate 83 84 84 Respiratory Rate 24 25 H Blood Pressure 148/89 H Pulse Oximetry 99 99 03/23/18 23:00 03/23/18 23:43 03/24/18 00:45 Temperature 98.5 F Pulse Rate 96 H 99 H 97 H Respiratory Rate 27 H 24 Blood Pressure 165/89 H Pulse Oximetry 99 99 03/24/18 03:00 03/24/18 03:20 03/24/18 04:21 Temperature 99.6 F Pulse Rate 96 H 97 H 90 Respiratory Rate 23 24 Blood Pressure 178/95 H Pulse Oximetry 98 98 Intake & Output 03/23/18 03/24/18 03/24/18 18:59 06:59 18:59 Intake Total 1850 / 1850 1423 / 1423 500 / 500 Output Total 1400 / 1400 Balance 1850 / 1850 23 500 / 500 Weight 88.1 kg Intake: IV 1300 / 1300 675 / 675 500 / 500 D5W/Normal Saline Inj 1,000 ML 1000 / 1000 @ 100 mls/hr IV.CONT .Q10H ANGIE Rx#:[id number] Azactam Inj 1,000 MG In NS Inj 100 / 100 200 / 200 100 ML @ 200 mls/hr IV.SIG Q8H ANGIE Rx#:[id number] KCl 40 mEq Premix Inj 40 meq In 200 / 200 100 ml @ 25 mls/hr IV.SIG Q4H [facility] Rx#:[id number] Sodium Bicarbonate 8.4% Inj 37. 475 / 475 500 / 500 5 MEQ In 1/2 Normal Saline Inj 462.5 ML @ 100 mls/hr IV.SIG Q5H [facility] Rx#:[id number] Tube Feeding 550 / 550 748 / 748 Output: Urine Amount (Catheter) 1400 / 1400 Indwelling Urethral Catheter 1400 / 1400 Narrative: Intubated on propofol drip, coma state nonresponsive nonverbal, pupils approximately 2 mm nonreactive impaired oculocephalic reflex, face symmetric no extremity movement to tactile stimuli - Constitutional no acute distress - Urinary Catheter Management Indwelling Urethral Catheter Cath placed during this visit: yes Reason for continuing: Terminally ill/Comfort care Insertion date: 03/21/18 Insertion time: 06:00 Objective Laboratory Results - last 24 hr 03/23/18 03/23/18 03/23/18 08:48 12:26 15:38 WBC RBC Hgb Hct MCV MCH MCHC RDW Plt Count MPV Prelim Diff (Auto) Neut % (Auto) Lymph % (Auto) [place] % (Auto) Eos % (Auto) Baso % (Auto) Neut # (Auto) Lymph # (Auto) [place] # (Auto) Eos # (Auto) Baso # (Auto) WBC Differential Seg Neuts % (Manual) Band Neuts % (Manual) Lymphocytes % (Manual) Monocytes % (Manual) Abs Neuts (Manual) Differential Comment Platelet Estimate Platelet Morphology Sodium Potassium Chloride Carbon Dioxide Anion Gap BUN Creatinine Estimated GFR POC Glucose 196 H 161 H 189 H Random Glucose Calcium Calcium Adj for Albumin Total Bilirubin AST ALT Alkaline Phosphatase Total Creatine Kinase CK-MB (CK-2) CK-MB (CK-2) % Total Protein Albumin Random Vancomycin Urine Opiates Screen Ur Barbiturates Screen Ur Amphetamine Screen U Benzodiazepines Scrn Urine Cocaine Screen U Cannabinoids Screen 03/23/18 03/23/18 03/23/18 17:36 20:09 21:31 WBC RBC Hgb Hct MCV MCH MCHC RDW Plt Count MPV Prelim Diff (Auto) Neut % (Auto) Lymph % (Auto) [place] % (Auto) Eos % (Auto) Baso % (Auto) Neut # (Auto) Lymph # (Auto) [place] # (Auto) Eos # (Auto) Baso # (Auto) WBC Differential Seg Neuts % (Manual) Band Neuts % (Manual) Lymphocytes % (Manual) Monocytes % (Manual) Abs Neuts (Manual) Differential Comment Platelet Estimate Platelet Morphology Sodium Potassium Chloride Carbon Dioxide Anion Gap BUN Creatinine Estimated GFR POC Glucose 117 H Random Glucose Calcium Calcium Adj for Albumin Total Bilirubin AST ALT Alkaline Phosphatase Total Creatine Kinase 5348 H CK-MB (CK-2) 31.9 H CK-MB (CK-2) % 0.6 Total Protein Albumin Random Vancomycin Urine Opiates Screen Neg Ur Barbiturates Screen Neg Ur Amphetamine Screen Neg U Benzodiazepines Scrn Pos H Urine Cocaine Screen Neg U Cannabinoids Screen Neg 03/24/18 03/24/18 03/24/18 00:18 04:24 04:24 WBC 17.7 H RBC 3.83 L Hgb 11.7 L Hct 34.5 L MCV 90.2 MCH 30.5 MCHC 33.8 RDW 13.7 Plt Count 109 L D MPV 11.0 Prelim Diff (Auto) Slide review pending Neut % (Auto) 90.6 H Lymph % (Auto) 4.2 L [place] % (Auto) 5.0 Eos % (Auto) 0.0 Baso % (Auto) 0.2 Neut # (Auto) 16.1 H Lymph # (Auto) 0.8 L [place] # (Auto) 0.9 Eos # (Auto) 0.0 Baso # (Auto) 0.0 WBC Differential Manual diff final Seg Neuts % (Manual) 79 H Band Neuts % (Manual) 12 H Lymphocytes % (Manual) 5 L Monocytes % (Manual) 4 Abs Neuts (Manual) 16.1 H Differential Comment . Platelet Estimate Low L Platelet Morphology Normal Sodium 144 Potassium 3.1 L Chloride 102 Carbon Dioxide 32.8 H Anion Gap 9 BUN 37 H Creatinine 2.42 H Estimated GFR 30 L POC Glucose 164 H Random Glucose 131 H Calcium 7.1 L* D Calcium Adj for Albumin 8.3 L D Total Bilirubin 1.0 AST 314 H ALT 472 H Alkaline Phosphatase 89 Total Creatine Kinase 5445 H CK-MB (CK-2) 33.0 H CK-MB (CK-2) % 0.6 Total Protein 5.8 L D Albumin 2.5 L Random Vancomycin 8.1 Urine Opiates Screen Ur Barbiturates Screen Ur Amphetamine Screen U Benzodiazepines Scrn Urine Cocaine Screen U Cannabinoids Screen 03/24/18 03/24/18 04:24 07:27 WBC RBC Hgb Hct MCV MCH MCHC RDW Plt Count MPV Prelim Diff (Auto) Neut % (Auto) Lymph % (Auto) [place] % (Auto) Eos % (Auto) Baso % (Auto) Neut # (Auto) Lymph # (Auto) [place] # (Auto) Eos # (Auto) Baso # (Auto) WBC Differential Seg Neuts % (Manual) Band Neuts % (Manual) Lymphocytes % (Manual) Monocytes % (Manual) Abs Neuts (Manual) Differential Comment Platelet Estimate Platelet Morphology Sodium Potassium Chloride Carbon Dioxide Anion Gap BUN Creatinine Estimated GFR POC Glucose 144 H 177 H Random Glucose Calcium Calcium Adj for Albumin Total Bilirubin AST ALT Alkaline Phosphatase Total Creatine Kinase CK-MB (CK-2) CK-MB (CK-2) % Total Protein Albumin Random Vancomycin Urine Opiates Screen Ur Barbiturates Screen Ur Amphetamine Screen U Benzodiazepines Scrn Urine Cocaine Screen U Cannabinoids Screen Microbiology 03/21/18 06:30 Aerobic Blood Culture - Final Blood - Line Viridans streptococcus grp Haemophilus influenzae Anaerobic Blood Culture - Preliminary No growth in 2 days 03/21/18 06:40 Aerobic Blood Culture - Preliminary Blood - Peripheral Haemophilus influenzae Anaerobic Blood Culture - Preliminary No growth in 2 days 03/21/18 06:45 Aerobic Blood Culture - Preliminary Blood - Peripheral Haemophilus influenzae Anaerobic Blood Culture - Preliminary No growth in 2 days 03/21/18 06:35 Aerobic Blood Culture - Preliminary Blood - Line Haemophilus influenzae Anaerobic Blood Culture - Preliminary No growth in 2 days 03/21/18 12:50 Gram Stain - Final Sputum - Endotracheal Sputum Culture - Preliminary Review/Management - Diagnosis (1) Anoxic encephalopathy Code(s): G93.1 - Anoxic brain damage, not elsewhere classified Status: Acute Current Visit: Yes (2) PEA (Pulseless electrical activity) Code(s): I46.9 - Cardiac arrest, cause unspecified Status: Acute Current Visit: Yes - Review/Management Plan: Severe cortical and brainstem injury Absence of brainstem reflexes Hypoxic related myoclonus, tremulousness nonepileptic MRI brain scan reviewed significant diffusion restriction bihemispheric high cortical regions EEG demonstrating flat line Recommendation Stop sedation as feasible Based on EEG MRI and exam findings of sedation with impaired brainstem reflexes I suspect his prognosis to be poor and higher likelihood for PVS Discussed with FAUSTO
[2018-03-24] MEDS: dilTIAZem 60 MG Tablet PO SCH ×3 (09:16→17:37)
[2018-03-24] MEDS: Pantoprazole Inj 40 MG Vial IV.PUSH SCH (09:16)
[2018-03-24] MEDS ORDERED: Metoprolol Inj 5 MG/5 ML Vial IV.PUSH PRN (10:00)
--- NOTE | 2018-03-24 11:45 | P.PNPAL ---
Reason for Visit Reason for visit: a. To assist with evaluation and management of symptoms including: b. To assist medical decision maker(s) with: better understanding of current medical conditions; weighing benefits/burdens of medical treatment options; making medical treatment decisions. Subjective Subjective/Interval History: Patient seen to follow-up on goals with decision-maker. Has remained stable overnight, on mechanical vent. Remains nonresponsive. WBC uptrending 17.7. BUN and creatinine increasing 37/2.42. Neurology following, "suspect his prognosis to be poor and higher likelihood for PVS ". Examined in room family member at bedside. He informs he is an older brother. met w brother [id number]: Review of additional hx, reviewed hospital course, current assessment. Additional family and visitors have been coming since yesterday evening. He informs that patient's son Christ was in yesterday evening and they were all able to speak with Dr. Marroquin critical care at length. Christ does wish to serve as decision-maker, supported by additional family members. This brother shares with me that Christ would likely want to proceed with withdrawal of life support probably tomorrow, based on patient known wishes. Brother expresses that they have seen patient struggle with drug issues for a long time, and that he would not want to be sustained in a vegetative state. Some anticipatory guidance provided. He indicates they are waiting on one other friend to arrive from out of town and then will likely withdrawal tomorrow. He indicates multiple extended family members may be present including patient's estranged mother. He has questions about withdrawal process , anticipatory guidance provided. I did review code status-- he indicates family spoke with the Dr about that last night and requested DNR status. (*will need to clarify this w son Christ as EMR notes pt still full code) Updated nurse. [employer] patient client application support specialist present, he indicates the patient is a registered donor, has questions regarding potential withdrawal- advised that this may potentially happen tomorrow. He indicates he may approach family RE pt' s donation registration status. Family/Friend Interactions: 1330 notified by nursing that son and additional family have arrived. Met with them from 1330- 1410. updated nursing, critical care attending after. Met with them again at length, son Christ mother is present, 2 brothers, other extended family members, as well as patient's mother Eugenia. Extensive review with them of hospital course from presentation until now. Review with them prognosis based on assessments and clinical data thus far. Review very unlikely to have meaningful neurologic recovery, if he survives current acute status expected to have persistent vegetative state. Review of treatment options going forward which would include ongoing artificial/invasive measures likely trach and nursing home care placement after acute phase, versus de- escalation and life support, and expected without further invasive measures They also have multiple questions about prehospital, EMS response, if law enforcement has been notified about "bad drugs "etc. I advised that prehospital events and protocol would need to be explored with [facility], as well as on enforcement agencies that I could only speak to the medical aspects of things during hospitalization. I did provide them with EMS dispatch time as available in our records and EMS treatment administered upon that arrival, advised that they would need to request formal records through [facility]. Explore with them withdrawal process, anticipatory guidance. All questions answered to the best of my ability. We reviewed code status, son , supported by family, requests no further cardiac measures/no cpr. We again reviewed [place] statutes and legal decision makers, son Christ verbalizes that he will make decisions supported by close family who is present. They are leaning towards compassionate withdrawal of life support however not certain of when yet they are waiting for additional close friend to arrive later today. They will likely proceed Friday. They request doughnut maker visit again, notified Wing Chavez. Objective Vital Signs: Vital Signs 03/23/18 11:52 03/23/18 11:53 03/23/18 15:00 Temperature 98.3 F Pulse Rate 72 73 Respiratory Rate 20 20 21 Blood Pressure 103/59 L Pulse Oximetry 99 98 03/23/18 16:13 03/23/18 16:14 03/23/18 19:00 Temperature Pulse Rate 70 83 Respiratory Rate 20 20 Blood Pressure Pulse Oximetry 99 03/23/18 20:00 03/23/18 20:52 03/23/18 23:00 Temperature 97.8 F Pulse Rate 84 84 96 H Respiratory Rate 24 25 H Blood Pressure 148/89 H Pulse Oximetry 99 99 03/23/18 23:43 03/24/18 00:45 03/24/18 03:00 Temperature 98.5 F Pulse Rate 99 H 97 H 96 H Respiratory Rate 27 H 24 Blood Pressure 165/89 H Pulse Oximetry 99 99 03/24/18 03:20 03/24/18 04:21 03/24/18 09:27 Temperature 99.6 F Pulse Rate 97 H 90 90 Respiratory Rate 23 24 22 Blood Pressure 178/95 H Pulse Oximetry 98 98 98 Intake & Output 03/23/18 03/24/18 03/24/18 18:59 06:59 18:59 Intake Total 1850 / 1850 1423 / 1423 500 / 500 Output Total 1400 / 1400 Balance 1850 / 1850 23 / 23 500 / 500 Weight 88.1 kg Intake: IV 1300 / 1300 675 / 675 500 / 500 D5W/Normal Saline Inj 1,000 ML 1000 / 1000 @ 100 mls/hr IV.CONT .Q10H ANGIE Rx#:[id number] Azactam Inj 1,000 MG In NS Inj 100 / 100 200 / 200 100 ML @ 200 mls/hr IV.SIG Q8H ANGIE Rx#:[id number] KCl 40 mEq Premix Inj 40 meq In 200 / 200 100 ml @ 25 mls/hr IV.SIG Q4H ANGIE Rx#:[id number] Sodium Bicarbonate 8.4% Inj 37. 475 / 475 500 / 500 5 MEQ In 1/2 Normal Saline Inj 462.5 ML @ 100 mls/hr IV.SIG Q5H ANGIE Rx#:[id number] Tube Feeding 550 / 550 748 / 748 Output: Urine Amount (Catheter) 1400 / 1400 Indwelling Urethral Catheter 1400 / 1400 Physical Exam: CONSTITUTIONAL/GENERAL: This is an adequately nourished patient,non responsive on [facility] vent TUBES/LINES/DRAINS:central line rt IJ, ETT, NGT, bauer catheter, scd, NGT SKIN: No jaundice, rashes, or lesions. No wounds seen anteriorly. Skin warm/ dry. multiple tattoos to UE, trunk. HEAD: Atraumatic. Normocephalic. EYES: Pupils 2mm non reactive to light. No corneal reflex. No scleral icterus. No injection or drainage. Fundi not examined. CARDIOVASCULAR: Regular rate and rhythm without murmur. No JVD. Peripheral pulses symmetric. RESPIRATORY/CHEST: Symmetric, unlabored respirations, via mechanical vent. Not overbreathing vent rate. Clear to auscultation. Breath sounds equal bilaterally. GASTROINTESTINAL: Abdomen soft, nondistended. No hepato-splenomegaly, or palpable masses. Bowel sounds hypoactive. TF infusing to NGT. GENITOURINARY: Without palpable bladder distension. Bauer catheter in place. MUSCULOSKELETAL: Extremities without clubbing, cyanosis, or edema. No joint tenderness or effusion noted. No calf tenderness. No mottling or clubbing. LYMPHATICS: No palpable cervical or supraclavicular adenopathy. NEUROLOGICAL: On no sedation. Nonresponsive to exam. No gag with ETT stimuli. No corneal or pupillary reflex. No withdrawal to pain stimuli on extremities. PSYCHIATRIC: Limited assessment secondary to clinical condition, not responsive Diagnostic Tests Laboratory: Laboratory Results - last 72 hr 03/21/18 03/21/18 03/21/18 09:10 12:00 12:00 WBC RBC Hgb Hct MCV MCH MCHC RDW Plt Count MPV Prelim Diff (Auto) Neut % (Auto) Lymph % (Auto) [place] % (Auto) Eos % (Auto) Baso % (Auto) Neut # (Auto) Lymph # (Auto) [place] # (Auto) Eos # (Auto) Baso # (Auto) WBC Differential Diff Scan Seg Neuts % (Manual) Band Neuts % (Manual) Lymphocytes % (Manual) Monocytes % (Manual) Abs Neuts (Manual) Differential Comment Platelet Estimate Platelet Morphology RBC Morphology Puncture Site Patient Temperature O2 Saturation ABG pH ABG pCO2 ABG pO2 ABG HCO3 ABG O2 Content ABG Base Excess ABG Methemoglobin Humberto Test Hemoglobin Carboxyhemoglobin O2 Delivery Device Liter Flow Vent Setting Inspired O2 Critical Value Sodium 139 Potassium 3.1 L D Chloride 98 Carbon Dioxide 25.2 Anion Gap 16 H BUN 27 H Creatinine 2.08 H Estimated GFR 36 L POC Glucose Random Glucose 181 H D Lactic Acid 6.7 H* Calcium 6.6 L* D Calcium Adj for Albumin 7.5 L Magnesium Total Bilirubin 3.3 H AST 1052 H ALT 745 H Alkaline Phosphatase 127 H Total Creatine Kinase CK-MB (CK-2) CK-MB (CK-2) % Total Protein 5.7 L Albumin 2.9 L Nasal Screen MRSA (PCR) Not detected Random Vancomycin Urine Opiates Screen Ur Barbiturates Screen Ur Amphetamine Screen U Benzodiazepines Scrn Urine Cocaine Screen U Cannabinoids Screen 03/21/18 03/21/18 03/22/18 13:30 17:48 00:35 WBC RBC Hgb Hct MCV MCH MCHC RDW Plt Count MPV Prelim Diff (Auto) Neut % (Auto) Lymph % (Auto) [place] % (Auto) Eos % (Auto) Baso % (Auto) Neut # (Auto) Lymph # (Auto) [place] # (Auto) Eos # (Auto) Baso # (Auto) WBC Differential Diff Scan Seg Neuts % (Manual) Band Neuts % (Manual) Lymphocytes % (Manual) Monocytes % (Manual) Abs Neuts (Manual) Differential Comment Platelet Estimate Platelet Morphology RBC Morphology Puncture Site Patient Temperature O2 Saturation ABG pH ABG pCO2 ABG pO2 ABG HCO3 ABG O2 Content ABG Base Excess ABG Methemoglobin Humberto Test Hemoglobin Carboxyhemoglobin O2 Delivery Device Liter Flow Vent Setting Inspired O2 Critical Value Sodium Potassium Chloride Carbon Dioxide Anion Gap BUN Creatinine Estimated GFR POC Glucose 196 H 212 H 166 H Random Glucose Lactic Acid Calcium Calcium Adj for Albumin Magnesium Total Bilirubin AST ALT Alkaline Phosphatase Total Creatine Kinase CK-MB (CK-2) CK-MB (CK-2) % Total Protein Albumin Nasal Screen MRSA (PCR) Random Vancomycin Urine Opiates Screen Ur Barbiturates Screen Ur Amphetamine Screen U Benzodiazepines Scrn Urine Cocaine Screen U Cannabinoids Screen 03/22/18 03/22/18 03/22/18 05:15 05:15 05:21 WBC 13.3 H RBC 3.86 L Hgb 12.1 L Hct 34.0 L MCV 88.1 D MCH 31.4 MCHC 35.6 RDW 13.5 Plt Count 89 L D MPV 10.2 Prelim Diff (Auto) Slide review pending Neut % (Auto) 88.6 H Lymph % (Auto) 7.1 L [place] % (Auto) 4.0 Eos % (Auto) 0.2 Baso % (Auto) 0.1 Neut # (Auto) 11.8 H Lymph # (Auto) 0.9 L [place] # (Auto) 0.5 Eos # (Auto) 0.0 Baso # (Auto) 0.0 WBC Differential Manual diff final Diff Scan Seg Neuts % (Manual) 64 Band Neuts % (Manual) 33 H Lymphocytes % (Manual) 2 L Monocytes % (Manual) 1 Abs Neuts (Manual) 12.9 H Differential Comment . Platelet Estimate Low L Platelet Morphology Normal RBC Morphology Normal Puncture Site Patient Temperature O2 Saturation ABG pH ABG pCO2 ABG pO2 ABG HCO3 ABG O2 Content ABG Base Excess ABG Methemoglobin Humberto Test Hemoglobin Carboxyhemoglobin O2 Delivery Device Liter Flow Vent Setting Inspired O2 Critical Value Sodium 140 Potassium 3.3 L Chloride 94 L Carbon Dioxide 35.1 H D Anion Gap 11 BUN 33 H Creatinine 3.18 H Estimated GFR 22 L POC Glucose 198 H Random Glucose 184 H Lactic Acid Calcium 6.0 L* Calcium Adj for Albumin 7.3 L* Magnesium 1.6 D Total Bilirubin 3.0 H AST 915 H ALT 755 H Alkaline Phosphatase 67 Total Creatine Kinase CK-MB (CK-2) CK-MB (CK-2) % Total Protein 4.9 L D Albumin 2.4 L Nasal Screen MRSA (PCR) Random Vancomycin Urine Opiates Screen Ur Barbiturates Screen Ur Amphetamine Screen U Benzodiazepines Scrn Urine Cocaine Screen U Cannabinoids Screen 03/22/18 03/22/18 03/22/18 07:52 09:23 09:45 WBC RBC Hgb Hct MCV MCH MCHC RDW Plt Count MPV Prelim Diff (Auto) Neut % (Auto) Lymph % (Auto) [place] % (Auto) Eos % (Auto) Baso % (Auto) Neut # (Auto) Lymph # (Auto) [place] # (Auto) Eos # (Auto) Baso # (Auto) WBC Differential Diff Scan Seg Neuts % (Manual) Band Neuts % (Manual) Lymphocytes % (Manual) Monocytes % (Manual) Abs Neuts (Manual) Differential Comment Platelet Estimate Platelet Morphology RBC Morphology Puncture Site Right radial Patient Temperature 98.6 O2 Saturation 95 ABG pH 7.59 H* ABG pCO2 38 ABG pO2 84 ABG HCO3 37 H ABG O2 Content 15.0 ABG Base Excess 13.5 H ABG Methemoglobin 1.9 Humberto Test + Hemoglobin 11.1 L Carboxyhemoglobin 0.8 O2 Delivery Device Ventilator Liter Flow Vent Setting See comments Inspired O2 40 Critical Value Yes Sodium Potassium Chloride Carbon Dioxide Anion Gap BUN Creatinine Estimated GFR POC Glucose 225 H Random Glucose Lactic Acid 3.8 H Calcium Calcium Adj for Albumin Magnesium Total Bilirubin AST ALT Alkaline Phosphatase Total Creatine Kinase CK-MB (CK-2) CK-MB (CK-2) % Total Protein Albumin Nasal Screen MRSA (PCR) Random Vancomycin Urine Opiates Screen Ur Barbiturates Screen Ur Amphetamine Screen U Benzodiazepines Scrn Urine Cocaine Screen U Cannabinoids Screen 03/22/18 03/22/18 03/22/18 09:45 09:45 11:33 WBC RBC Hgb Hct MCV MCH MCHC RDW Plt Count MPV Prelim Diff (Auto) Neut % (Auto) Lymph % (Auto) [place] % (Auto) Eos % (Auto) Baso % (Auto) Neut # (Auto) Lymph # (Auto) [place] # (Auto) Eos # (Auto) Baso # (Auto) WBC Differential Diff Scan Seg Neuts % (Manual) Band Neuts % (Manual) Lymphocytes % (Manual) Monocytes % (Manual) Abs Neuts (Manual) Differential Comment Platelet Estimate Platelet Morphology RBC Morphology Puncture Site Right radial Patient Temperature 98.6 O2 Saturation 96 ABG pH 7.51 H* ABG pCO2 45 H ABG pO2 99 ABG HCO3 36 H ABG O2 Content 16.4 ABG Base Excess 11.8 H ABG Methemoglobin 1.9 Humberto Test + Hemoglobin 12.1 Carboxyhemoglobin 0.5 O2 Delivery Device Ventilator Liter Flow Vent Setting See comments Inspired O2 40 Critical Value Yes Sodium Potassium Chloride Carbon Dioxide Anion Gap BUN Creatinine Estimated GFR POC Glucose Random Glucose Lactic Acid Calcium Calcium Adj for Albumin Magnesium Total Bilirubin AST ALT Alkaline Phosphatase Total Creatine Kinase 5202 H CK-MB (CK-2) 13.6 H CK-MB (CK-2) % 0.3 Total Protein Albumin Nasal Screen MRSA (PCR) Random Vancomycin 5.7 Urine Opiates Screen Ur Barbiturates Screen Ur Amphetamine Screen U Benzodiazepines Scrn Urine Cocaine Screen U Cannabinoids Screen 03/22/18 03/22/18 03/22/18 12:04 16:12 22:18 WBC RBC Hgb Hct MCV MCH MCHC RDW Plt Count MPV Prelim Diff (Auto) Neut % (Auto) Lymph % (Auto) [place] % (Auto) Eos % (Auto) Baso % (Auto) Neut # (Auto) Lymph # (Auto) [place] # (Auto) Eos # (Auto) Baso # (Auto) WBC Differential Diff Scan Seg Neuts % (Manual) Band Neuts % (Manual) Lymphocytes % (Manual) Monocytes % (Manual) Abs Neuts (Manual) Differential Comment Platelet Estimate Platelet Morphology RBC Morphology Puncture Site Patient Temperature O2 Saturation ABG pH ABG pCO2 ABG pO2 ABG HCO3 ABG O2 Content ABG Base Excess ABG Methemoglobin Humberto Test Hemoglobin Carboxyhemoglobin O2 Delivery Device Liter Flow Vent Setting Inspired O2 Critical Value Sodium Potassium Chloride Carbon Dioxide Anion Gap BUN Creatinine Estimated GFR POC Glucose 203 H 187 H 178 H Random Glucose Lactic Acid Calcium Calcium Adj for Albumin Magnesium Total Bilirubin AST ALT Alkaline Phosphatase Total Creatine Kinase CK-MB (CK-2) CK-MB (CK-2) % Total Protein Albumin Nasal Screen MRSA (PCR) Random Vancomycin Urine Opiates Screen Ur Barbiturates Screen Ur Amphetamine Screen U Benzodiazepines Scrn Urine Cocaine Screen U Cannabinoids Screen 03/23/18 03/23/18 03/23/18 01:31 04:58 05:00 WBC 13.0 H RBC 3.33 L Hgb 10.3 L Hct 29.3 L MCV 88.2 MCH 31.0 MCHC 35.2 RDW 13.5 Plt Count 71 L MPV 10.0 Prelim Diff (Auto) Slide review pending Neut % (Auto) 89.6 H Lymph % (Auto) 6.2 L [place] % (Auto) 4.0 Eos % (Auto) 0.0 Baso % (Auto) 0.2 Neut # (Auto) 11.7 H Lymph # (Auto) 0.8 L [place] # (Auto) 0.5 Eos # (Auto) 0.0 Baso # (Auto) 0.0 WBC Differential . Diff Scan Auto diff confirmed Seg Neuts % (Manual) Band Neuts % (Manual) Lymphocytes % (Manual) Monocytes % (Manual) Abs Neuts (Manual) Differential Comment . Platelet Estimate Low L Platelet Morphology Enlarged H RBC Morphology Puncture Site Patient Temperature O2 Saturation ABG pH ABG pCO2 ABG pO2 ABG HCO3 ABG O2 Content ABG Base Excess ABG Methemoglobin Humberto Test Hemoglobin Carboxyhemoglobin O2 Delivery Device Liter Flow Vent Setting Inspired O2 Critical Value Sodium Potassium Chloride Carbon Dioxide Anion Gap BUN Creatinine Estimated GFR POC Glucose 210 H 206 H Random Glucose Lactic Acid Calcium Calcium Adj for Albumin Magnesium Total Bilirubin AST ALT Alkaline Phosphatase Total Creatine Kinase CK-MB (CK-2) CK-MB (CK-2) % Total Protein Albumin Nasal Screen MRSA (PCR) Random Vancomycin Urine Opiates Screen Ur Barbiturates Screen Ur Amphetamine Screen U Benzodiazepines Scrn Urine Cocaine Screen U Cannabinoids Screen 03/23/18 03/23/18 03/23/18 05:00 08:48 12:26 WBC RBC Hgb Hct MCV MCH MCHC RDW Plt Count MPV Prelim Diff (Auto) Neut % (Auto) Lymph % (Auto) [place] % (Auto) Eos % (Auto) Baso % (Auto) Neut # (Auto) Lymph # (Auto) [place] # (Auto) Eos # (Auto) Baso # (Auto) WBC Differential Diff Scan Seg Neuts % (Manual) Band Neuts % (Manual) Lymphocytes % (Manual) Monocytes % (Manual) Abs Neuts (Manual) Differential Comment Platelet Estimate Platelet Morphology RBC Morphology Puncture Site Patient Temperature O2 Saturation ABG pH ABG pCO2 ABG pO2 ABG HCO3 ABG O2 Content ABG Base Excess ABG Methemoglobin Humberto Test Hemoglobin Carboxyhemoglobin O2 Delivery Device Liter Flow Vent Setting Inspired O2 Critical Value Sodium 142 Potassium 2.9 L* Chloride 98 Carbon Dioxide 34.8 H Anion Gap 9 BUN 36 H Creatinine 3.06 H Estimated GFR 23 L POC Glucose 196 H 161 H Random Glucose 194 H Lactic Acid Calcium 6.0 L* Calcium Adj for Albumin 7.4 L* Magnesium Total Bilirubin 1.0 AST 408 H ALT 548 H Alkaline Phosphatase 60 Total Creatine Kinase CK-MB (CK-2) CK-MB (CK-2) % Total Protein 4.9 L Albumin 2.2 L Nasal Screen MRSA (PCR) Random Vancomycin 18.1 Urine Opiates Screen Ur Barbiturates Screen Ur Amphetamine Screen U Benzodiazepines Scrn Urine Cocaine Screen U Cannabinoids Screen 03/23/18 03/23/18 03/23/18 15:38 17:36 20:09 WBC RBC Hgb Hct MCV MCH MCHC RDW Plt Count MPV Prelim Diff (Auto) Neut % (Auto) Lymph % (Auto) [place] % (Auto) Eos % (Auto) Baso % (Auto) Neut # (Auto) Lymph # (Auto) [place] # (Auto) Eos # (Auto) Baso # (Auto) WBC Differential Diff Scan Seg Neuts % (Manual) Band Neuts % (Manual) Lymphocytes % (Manual) Monocytes % (Manual) Abs Neuts (Manual) Differential Comment Platelet Estimate Platelet Morphology RBC Morphology Puncture Site Patient Temperature O2 Saturation ABG pH ABG pCO2 ABG pO2 ABG HCO3 ABG O2 Content ABG Base Excess ABG Methemoglobin Humberto Test Hemoglobin Carboxyhemoglobin O2 Delivery Device Liter Flow Vent Setting Inspired O2 Critical Value Sodium Potassium Chloride Carbon Dioxide Anion Gap BUN Creatinine Estimated GFR POC Glucose 189 H 117 H Random Glucose Lactic Acid Calcium Calcium Adj for Albumin Magnesium Total Bilirubin AST ALT Alkaline Phosphatase Total Creatine Kinase 5348 H CK-MB (CK-2) 31.9 H CK-MB (CK-2) % 0.6 Total Protein Albumin Nasal Screen MRSA (PCR) Random Vancomycin Urine Opiates Screen Ur Barbiturates Screen Ur Amphetamine Screen U Benzodiazepines Scrn Urine Cocaine Screen U Cannabinoids Screen 03/23/18 03/24/18 03/24/18 21:31 00:18 04:24 WBC 17.7 H RBC 3.83 L Hgb 11.7 L Hct 34.5 L MCV 90.2 MCH 30.5 MCHC 33.8 RDW 13.7 Plt Count 109 L D MPV 11.0 Prelim Diff (Auto) Slide review pending Neut % (Auto) 90.6 H Lymph % (Auto) 4.2 L [place] % (Auto) 5.0 Eos % (Auto) 0.0 Baso % (Auto) 0.2 Neut # (Auto) 16.1 H Lymph # (Auto) 0.8 L [place] # (Auto) 0.9 Eos # (Auto) 0.0 Baso # (Auto) 0.0 WBC Differential Manual diff final Diff Scan Seg Neuts % (Manual) 79 H Band Neuts % (Manual) 12 H Lymphocytes % (Manual) 5 L Monocytes % (Manual) 4 Abs Neuts (Manual) 16.1 H Differential Comment . Platelet Estimate Low L Platelet Morphology Normal RBC Morphology Puncture Site Patient Temperature O2 Saturation ABG pH ABG pCO2 ABG pO2 ABG HCO3 ABG O2 Content ABG Base Excess ABG Methemoglobin Humberto Test Hemoglobin Carboxyhemoglobin O2 Delivery Device Liter Flow Vent Setting Inspired O2 Critical Value Sodium Potassium Chloride Carbon Dioxide Anion Gap BUN Creatinine Estimated GFR POC Glucose 164 H Random Glucose Lactic Acid Calcium Calcium Adj for Albumin Magnesium Total Bilirubin AST ALT Alkaline Phosphatase Total Creatine Kinase CK-MB (CK-2) CK-MB (CK-2) % Total Protein Albumin Nasal Screen MRSA (PCR) Random Vancomycin Urine Opiates Screen Neg Ur Barbiturates Screen Neg Ur Amphetamine Screen Neg U Benzodiazepines Scrn Pos H Urine Cocaine Screen Neg U Cannabinoids Screen Neg 03/24/18 03/24/18 03/24/18 04:24 04:24 07:27 WBC RBC Hgb Hct MCV MCH MCHC RDW Plt Count MPV Prelim Diff (Auto) Neut % (Auto) Lymph % (Auto) [place] % (Auto) Eos % (Auto) Baso % (Auto) Neut # (Auto) Lymph # (Auto) [place] # (Auto) Eos # (Auto) Baso # (Auto) WBC Differential Diff Scan Seg Neuts % (Manual) Band Neuts % (Manual) Lymphocytes % (Manual) Monocytes % (Manual) Abs Neuts (Manual) Differential Comment Platelet Estimate Platelet Morphology RBC Morphology Puncture Site Patient Temperature O2 Saturation ABG pH ABG pCO2 ABG pO2 ABG HCO3 ABG O2 Content ABG Base Excess ABG Methemoglobin Humberto Test Hemoglobin Carboxyhemoglobin O2 Delivery Device Liter Flow Vent Setting Inspired O2 Critical Value Sodium 144 Potassium 3.1 L Chloride 102 Carbon Dioxide 32.8 H Anion Gap 9 BUN 37 H Creatinine 2.42 H Estimated GFR 30 L POC Glucose 144 H 177 H Random Glucose 131 H Lactic Acid Calcium 7.1 L* D Calcium Adj for Albumin 8.3 L D Magnesium Total Bilirubin 1.0 AST 314 H ALT 472 H Alkaline Phosphatase 89 Total Creatine Kinase 5445 H CK-MB (CK-2) 33.0 H CK-MB (CK-2) % 0.6 Total Protein 5.8 L D Albumin 2.5 L Nasal Screen MRSA (PCR) Random Vancomycin 8.1 Urine Opiates Screen Ur Barbiturates Screen Ur Amphetamine Screen U Benzodiazepines Scrn Urine Cocaine Screen U Cannabinoids Screen 03/24/18 08:35 WBC RBC Hgb Hct MCV MCH MCHC RDW Plt Count MPV Prelim Diff (Auto) Neut % (Auto) Lymph % (Auto) [place] % (Auto) Eos % (Auto) Baso % (Auto) Neut # (Auto) Lymph # (Auto) [place] # (Auto) Eos # (Auto) Baso # (Auto) WBC Differential Diff Scan Seg Neuts % (Manual) Band Neuts % (Manual) Lymphocytes % (Manual) Monocytes % (Manual) Abs Neuts (Manual) Differential Comment Platelet Estimate Platelet Morphology RBC Morphology Puncture Site Patient Temperature O2 Saturation ABG pH ABG pCO2 ABG pO2 ABG HCO3 ABG O2 Content ABG Base Excess ABG Methemoglobin Humberto Test Hemoglobin Carboxyhemoglobin O2 Delivery Device Liter Flow Vent Setting Inspired O2 Critical Value Sodium Potassium Chloride Carbon Dioxide Anion Gap BUN Creatinine Estimated GFR POC Glucose Random Glucose Lactic Acid 2.4 H Calcium Calcium Adj for Albumin Magnesium Total Bilirubin AST ALT Alkaline Phosphatase Total Creatine Kinase CK-MB (CK-2) CK-MB (CK-2) % Total Protein Albumin Nasal Screen MRSA (PCR) Random Vancomycin Urine Opiates Screen Ur Barbiturates Screen Ur Amphetamine Screen U Benzodiazepines Scrn Urine Cocaine Screen U Cannabinoids Screen Result Diagrams: 03/24/18 04:24 03/24/18 04:24 Microbiology: Microbiology 03/21/18 06:40 Aerobic Blood Culture - Preliminary Blood - Peripheral Haemophilus influenzae Anaerobic Blood Culture - Preliminary No growth in 3 days 03/21/18 06:30 Aerobic Blood Culture - Final Blood - Line Viridans streptococcus grp Haemophilus influenzae Anaerobic Blood Culture - Preliminary No growth in 3 days 03/21/18 06:45 Aerobic Blood Culture - Preliminary Blood - Peripheral Haemophilus influenzae Anaerobic Blood Culture - Preliminary No growth in 3 days 03/21/18 06:35 Aerobic Blood Culture - Preliminary Blood - Line Haemophilus influenzae Anaerobic Blood Culture - Preliminary No growth in 3 days 03/21/18 12:50 Gram Stain - Final Sputum - Endotracheal Sputum Culture - Preliminary 03/21/18 06:10 Influenza Types A,B Antigen - Final Nasal Wash Negative for FLU A and B antigen Infection due to influenza A or B cannot be ruled out since the antigen present in the sample may be below the detection limit of the test. Imaging: Impressions Brain Flow Nuclear Medicine 03/22/18 00:00 CONCLUSION: 1. There is positive blood flow to the brain with mild brain activity. Head MRI 03/22/18 00:00 CONCLUSION: 1. Symmetric and scattered areas of diffusion restriction in both cerebral hemispheres are probably secondary to an anoxic brain injury. Areas involved are the occiput, portions of the temporal and high parietal lobes bilaterally. 2. No acute intracranial hemorrhage. 3. Cerebellar tonsillar ectopia. 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 Available information indicates has a brother, mother and father. Father reported recently . Per review of EMR patient with several previous ED visits for drug use related complications. Patient father in the past 1 year of drug related complications. Brother Raúl confirms social hx. Reports pt w son Christ who has just turned 18. Pt not . Spiritual: Not known; vegetable farm manager has been by for support. Legal: At this time patient incapacitated and unable to make decisions. Does not appear he will regain ability. Per [place] statutes legal decision making would fall to his parents. Father reported . Mother may be estranged. Otherwise he has a brother, who may serve as proxy if mother is unwilling or unable. Ethical issues impacting care: No ethical issues identified. Important Contacts: Father Christopher Mann [phone] (father reported 1 yr ago) mother Eugenia Mann ([place], reported estranged from pt, has restraining order against him) brother Raúl Mann Prognosis: This patient was admitted status post cardiac arrest out of hospital. Unknown amount of time down. He was unstable upon presentation, hypothermic. He has multiorgan failure, severe brain injury. Prognosis for survival poor. Prognosis for any type of meaningful recovery poor. Code Status: Alternative Code (intub only) Plan: Legal decision maker:At this time patient incapacitated and unable to make decisions. Does not appear he will regain ability. Per [place] statutes legal decision making would fall to his parents. Father reported . Mother may be estranged. Otherwise he has a brother, who may serve as proxy if mother is unwilling or unable. I will check w legal regarding proxy decision making of family member with restraining order. bereavement counselor has advised that restraining order has , and if mother were willing she would still be appropriate proxy. -- Later notified pt has a son Christ who just turned 18. This son would first be approp proxy IF he wishes to serve as such, then would fall to mother and if mother declines , then brother Raúl would be next appropriate proxy. --Christ , patient 18 yo son, has indicated that he wishes to serve as decision maker, supported by additional family. Goals: Brother expresses that they have seen patient struggle with drug issues for a long time, and that he would not want to be sustained in a vegetative state. Family has indicated they will want proceed with compassionate withdrawal of life support Friday03/24/17. Will need to reach out to son Christ to clarify code status in the mean time. 1330--later able to discuss w Christ and additional family, they indicate likely will proceed with compassionate withdrawal of life support sometime in the next day or so, Christ requests DNR/intubation only status CODE STATUS: during 2nd meeting/interaction son requested DNR/alt code, intubation only SYMPTOMS: --Dyspnea-intubated for unresponsive, airway protection. Unlabored respirations on mechanical vent no spontaneous respirations. --Encephalopathy-out of hospital arrest. Unknown amount of downtime. Severe cortical brain injury. Absence of brainstem reflexes. Brain flow study positive. poor prognosis per neuro, likely PVS --Pain-given extent of brain injury unlikely patient is able to feel pain sensation, however potential sources would include recent prolonged CPR, invasive procedures. no signs or sx of pain. On fentanyl drip for seizures/ sedation. --Seizures-patient developed seizures, underlying anoxic brain injury, post out of hospital arrest. Sedatives were initiated for this no seizures since initiation. now off sedative, Neurology following. Palliative care will continue to follow during hospital course as condition evolves, to assist patient/decision-maker with understanding of medical conditions, weighing benefits/burdens of treatment options, for clarification of goals of treatment. Additionally will assist with any symptoms of palliative concern Time Spent Time Periods: 9480-3013, [id number] Total Floor Time (mins): 80 (2 separate family meetings, discussions with nursing, update critical care + PE + chart review) Face to Face Time (mins): 65 >50% Time in Counseling or Coordination of Care: Yes Attestation Attestation: To help prompt me to consider important information that might be impacting today's encounter and assessment, information from prior notes written by myself or my colleagues may have been "brought forward" into today's note. My signature on this note, however, is an attestation that I personally performed the exam, history, and/or decision-making noted today, and, unless otherwise indicated, the interactions with patient, family, and staff as well as the review of records all occurred today. I also attest that the listed assessment and stated plan reflect my best clinical judgment today based on the combination of historical information, prior notes, and today's exam/ interactions. When time spent is documented, it refers only to time spent today by the signer, or if indicated, combined time spent today by collaborating physician/nurse practitioner.
[2018-03-24] MEDS ORDERED: Vancomycin Inj 1,750 MG in Sodium Chlor 0.9% Inj 500 ML IV.SIG ONE (14:00)
--- NOTE | 2018-03-24 14:42 | P.PNNP ---
Subjective Interval history: Patient remains comatose on the ventilator unresponsive Physical Exam Vital signs: Vital Signs 03/23/18 15:00 03/23/18 16:13 03/23/18 16:14 Temperature 98.3 F Pulse Rate 73 70 Respiratory Rate 21 20 20 Blood Pressure 103/59 L Pulse Oximetry 98 99 03/23/18 19:00 03/23/18 20:00 03/23/18 20:52 Temperature 97.8 F Pulse Rate 83 84 84 Respiratory Rate 24 25 H Blood Pressure 148/89 H Pulse Oximetry 99 99 03/23/18 23:00 03/23/18 23:43 03/24/18 00:45 Temperature 98.5 F Pulse Rate 96 H 99 H 97 H Respiratory Rate 27 H 24 Blood Pressure 165/89 H Pulse Oximetry 99 99 03/24/18 03:00 03/24/18 03:20 03/24/18 04:21 Temperature 99.6 F Pulse Rate 96 H 97 H 90 Respiratory Rate 23 24 Blood Pressure 178/95 H Pulse Oximetry 98 98 03/24/18 07:00 03/24/18 09:27 03/24/18 11:00 Temperature 99.8 F H 100.2 F H Pulse Rate 101 H 90 105 H Respiratory Rate 24 22 23 Blood Pressure 190/98 H 188/103 H Pulse Oximetry 98 98 98 03/24/18 11:48 03/24/18 11:51 Temperature Pulse Rate 104 H Respiratory Rate 25 H 25 H Blood Pressure Pulse Oximetry 99 Intake & Output 03/23/18 03/24/18 03/24/18 18:59 06:59 18:59 Intake Total 1850 / 1850 1423 / 1423 1100 / 1100 Output Total 1400 / 1400 Balance 1850 / 1850 23 / 23 1100 / 1100 Weight 88.1 kg Intake: IV 1300 / 1300 675 / 675 1100 / 1100 D5W/Normal Saline Inj 1,000 ML 1000 / 1000 @ 100 mls/hr IV.CONT .Q10H ANGIE Rx#:[id number] Azactam Inj 1,000 MG In NS Inj 100 / 100 200 / 200 100 / 100 100 ML @ 200 mls/hr IV.SIG Q8H ANGIE Rx#:[id number] KCl 40 mEq Premix Inj 40 meq In 200 / 200 100 ml @ 25 mls/hr IV.SIG Q4H ANGIE Rx#:[id number] Sodium Bicarbonate 8.4% Inj 37. 475 / 475 1000 / 1000 5 MEQ In 1/2 Normal Saline Inj 462.5 ML @ 100 mls/hr IV.SIG Q5H ANGIE Rx#:[id number] Tube Feeding 550 / 550 748 / 748 Output: Urine Amount (Catheter) 1400 / 1400 Indwelling Urethral Catheter 1400 / 1400 Narrative: Intubated on propofol drip, coma state nonresponsive nonverbal, pupils approximately 2 mm nonreactive impaired oculocephalic reflex, GENERAL: Intubated sick appearing SKIN: Warm and dry. HEAD: Intubated EYES: No scleral icterus. No injection or drainage. NECK: Intubated CARDIOVASCULAR: Regular rate and rhythm without murmurs, gallops, or rubs. RESPIRATORY: Breath sounds equal bilaterally. No accessory muscle use. GASTROINTESTINAL: Abdomen soft, hypoactive. EXTREMITIES: Patient edema 1+ NEUROLOGICAL: Intubated - Urinary Catheter Management Indwelling Urethral Catheter Cath placed during this visit: yes Reason for continuing: Terminally ill/Comfort care Insertion date: 03/21/18 Insertion time: 06:00 Assessment and Plan - Assessment (1) Acute renal failure Code(s): N17.9 - Acute kidney failure, unspecified Status: Acute Plan: Acute renal failure most likely due to acute tubular necrosis and underlying rhabdomyolysis on bicarbonate drip Continue supportive care Patient potassium replacement ordered Plan to withdraw him from life support tomorrow has no improvement in neurological status and remains comatose with poor prognosis Patient has minimal brain activity and possible withdrawal is discussed Blood pressure is high placed Catapres TTS #3 (2) Anoxic encephalopathy Code(s): G93.1 - Anoxic brain damage, not elsewhere classified Status: Acute (3) PEA (Pulseless electrical activity) Code(s): I46.9 - Cardiac arrest, cause unspecified Status: Acute
[2018-03-24] MEDS ORDERED: Potassium Chlor 40 mEq Premix 40 MEQ/100 ML PIGGYBACK IV.SIG ONE (14:44)
[2018-03-24] MEDS ORDERED: Labetalol HCl Inj 100 MG/20 ML Vial ONE (17:37)
[2018-03-24] MEDS: fentaNYL 10 mcg/mL Premix Drip 2,500 MCG/250 ML BAG IV.SIG PRN (20:00)
[2018-03-24] MEDS ORDERED: HYDROmorphone PF Inj 1 MG/ML Ampul IV.PUSH PRN (21:09)
[2018-03-24] MEDS ORDERED: fentaNYL Citrate Inj 100 MCG/2 ML Ampul IV.PUSH ONE ×2 (21:09)
[2018-03-24] MEDS ORDERED: Midazolam Inj 5 MG/ML 1 ML Vial IV.PUSH ONE ×2 (21:09)
[2018-03-24] MEDS: Midazolam 100 MG/100 ML Inj 100 MG/100 ML BAG IV.CONT PRN (22:00)
--- NOTE | 2018-03-24 23:13 | P.DN ---
- Provider Primary care physician: UNKNOWN Admitting clinician: Karissa Pepe Attending physician on admission: Karissa Pepe Consults: 03/21/18 07:51 Consult to Palliative Care Routine Consulting Provider: Steph Kolb Reason for Consultation: to asses with goals of care Notified:: Service Spoke with:: hilaria Date Notified:: 03/21/18 Time Notified:: 08:05 Ordering Provider: BELINDA 03/21/18 08:37 Consult to Neurology Routine Consulting Provider: Ritesh Plata Reason for Consultation: anoxic brain injury, diffuse cerebral edema Notified:: Service Spoke with:: jonathan Date Notified:: 03/21/18 Time Notified:: 08:42 Ordering Provider: BELINDA 03/22/18 08:21 Consult to Nephrology Routine Consulting Provider: Jim Tamez Does the patient have a Picker Packer who follows them?: No Preferred Nephrology Cut Plug Packer:: [employer] Contact Worker Physician Reason for Consultation: ARF Notified:: Service Spoke with:: DYLAN Date Notified:: 03/22/18 Time Notified:: 08:25 Ordering Provider: BELINDA Pronouncing clinician: Jorden Marroquin - Admitting Diagnosis (1) Anoxic encephalopathy (2) PEA (Pulseless electrical activity) (3) Acute renal failure (4) Cardiac arrest (5) Aspiration pneumonia (6) Lactic acidemia (7) Leukocytosis (8) Transaminitis (9) Anemia (10) Dyspnea (11) Seizure - Diagnosis at Time of (1) Anoxic encephalopathy Diagnosis: Principal (2) PEA (Pulseless electrical activity) Diagnosis: Principal (3) Acute renal failure Diagnosis: Principal (4) Cardiac arrest Diagnosis: Principal (5) Aspiration pneumonia Diagnosis: Principal (6) Lactic acidemia Diagnosis: Principal (7) Leukocytosis Diagnosis: Principal (8) Transaminitis Diagnosis: Principal (9) Anemia Diagnosis: Principal (10) Dyspnea Diagnosis: Principal (11) Seizure Diagnosis: Principal - Date and Time Date of admission: 03/21/18 07:10 Date of : 03/24/18 Time of : 22:12 - Summary Brief History: Patient is a 37-year-old male with a past medical history of polysubstance abuse who presented to [facility] ED via EMSstatus post cardiopulmonary arrest. He was found unresponsive outside on the [facility] and when EMS arrived, the patient was found pulseless. CPR was initiated and the patient was in asystole followed by a PEA arrest. ACLS protocol was initiated , and the patient received epinephrine multiple times en route and bicarbonate. Combitube intubation was performed successfully. The patient arrived in the ED, while CPR was performed by EMS. On arrival, he was hypotensive with a systolic blood pressure in the 80s, hypothermic with a temperature of 84-85 degrees Fahrenheit. In the ED, he was given a 3 liter bolus of normal saline, intubated with 8.0 ET tube, and a right IJ central line was placed by ED physician. Also, he was started on Levophed, which is currently at 10 mcg. His laboratory data is significant for severe lactic acidosis with a lactic acid level of 19.5, acute renal failure with a creatinine of 2.42. In addition , the patient was hypoglycemic with a blood sugar of 45 on the CMP. Also, he has leukocytosis with a WBC of 15.6. Initial ABG on the ventilator showed severe respiratory and metabolic acidosis with a pH of 6.91, CO2 65, PaO2 348, bicarbonate of 12, saturations of 97%. Chest x-ray showed bilateral perihilar patchy airspace consolidation. A CT scan of the brain was obtained, which showed diffuse cerebral swelling with decreased size of the ventricles. The patient is unresponsive and not on any sedation. Result Diagrams: 03/24/18 04:24 03/24/18 04:24 Significant Findings: Abnormal Lab Results 03/24/18 03/24/18 03/24/18 00:18 04:24 04:24 WBC 17.7 H RBC 3.83 L Hgb 11.7 L Hct 34.5 L MCV 90.2 MCH 30.5 MCHC 33.8 RDW 13.7 Plt Count 109 L D MPV 11.0 Prelim Diff (Auto) Slide review pending Neut % (Auto) 90.6 H Lymph % (Auto) 4.2 L Leake % (Auto) 5.0 Eos % (Auto) 0.0 Baso % (Auto) 0.2 Neut # (Auto) 16.1 H Lymph # (Auto) 0.8 L Leake # (Auto) 0.9 Eos # (Auto) 0.0 Baso # (Auto) 0.0 WBC Differential Manual diff final Seg Neuts % (Manual) 79 H Band Neuts % (Manual) 12 H Lymphocytes % (Manual) 5 L Monocytes % (Manual) 4 Abs Neuts (Manual) 16.1 H Differential Comment . Platelet Estimate Low L Platelet Morphology Normal Sodium 144 Potassium 3.1 L Chloride 102 Carbon Dioxide 32.8 H Anion Gap 9 BUN 37 H Creatinine 2.42 H Estimated GFR 30 L POC Glucose 164 H Random Glucose 131 H Lactic Acid Calcium 7.1 L* D Calcium Adj for Albumin 8.3 L D Total Bilirubin 1.0 AST 314 H ALT 472 H Alkaline Phosphatase 89 Total Creatine Kinase 5445 H CK-MB (CK-2) 33.0 H CK-MB (CK-2) % 0.6 Total Protein 5.8 L D Albumin 2.5 L Random Vancomycin 8.1 03/24/18 03/24/18 03/24/18 04:24 07:27 08:35 WBC RBC Hgb Hct MCV MCH MCHC RDW Plt Count MPV Prelim Diff (Auto) Neut % (Auto) Lymph % (Auto) Leake % (Auto) Eos % (Auto) Baso % (Auto) Neut # (Auto) Lymph # (Auto) Leake # (Auto) Eos # (Auto) Baso # (Auto) WBC Differential Seg Neuts % (Manual) Band Neuts % (Manual) Lymphocytes % (Manual) Monocytes % (Manual) Abs Neuts (Manual) Differential Comment Platelet Estimate Platelet Morphology Sodium Potassium Chloride Carbon Dioxide Anion Gap BUN Creatinine Estimated GFR POC Glucose 144 H 177 H Random Glucose Lactic Acid 2.4 H Calcium Calcium Adj for Albumin Total Bilirubin AST ALT Alkaline Phosphatase Total Creatine Kinase CK-MB (CK-2) CK-MB (CK-2) % Total Protein Albumin Random Vancomycin 03/24/18 03/24/18 11:13 17:25 WBC RBC Hgb Hct MCV MCH MCHC RDW Plt Count MPV Prelim Diff (Auto) Neut % (Auto) Lymph % (Auto) Leake % (Auto) Eos % (Auto) Baso % (Auto) Neut # (Auto) Lymph # (Auto) Leake # (Auto) Eos # (Auto) Baso # (Auto) WBC Differential Seg Neuts % (Manual) Band Neuts % (Manual) Lymphocytes % (Manual) Monocytes % (Manual) Abs Neuts (Manual) Differential Comment Platelet Estimate Platelet Morphology Sodium Potassium Chloride Carbon Dioxide Anion Gap BUN Creatinine Estimated GFR POC Glucose 163 H 157 H Random Glucose Lactic Acid Calcium Calcium Adj for Albumin Total Bilirubin AST ALT Alkaline Phosphatase Total Creatine Kinase CK-MB (CK-2) CK-MB (CK-2) % Total Protein Albumin Random Vancomycin Hospital Course: 03/22 Patient remains sedated and intubated, Tmax 103.1. Seizures overnight given Keppra and Cerebyx loading dose. EEG yesterday Flat line appearance in addition to portions of electrical artifact. severe diffuse cortical injury. On bicarb drip 03/23 remains sedated, orally intubated on mechanical ventilation. 03/24 Patient remains sedated and intubated. Afebrile. Hypertensive family asked to withdraw. patient made comfortable and life support withdrawn.
== END 2018-03-24 22:12 | disposition expired | DRG 208 ==
LOC: NEPE 06:09 → NEDA 07:10 → HCVI 08:01
PROVIDERS: ADMIT Internal Medicine Critical Care Medicine; ATTEND Internal Medicine Critical Care Medicine
CPT/HCPCS: 31500; 36556; 36569; 36600; 51702; 70450; 70551; 71010; 71045; 76700; 78606; 80053; 80074; 80101; 80202; 80301; 80307; 81001; 82550; 82552; 82805; 82948; 82962; 83605; 83735; 84484; 85025; 87040; 87070; 87077; 87184; 87186; 87205; 87275; 87276; 87641; 87804; 92950; 93005; 93306; 94002; 94003; 94640; 94656; 94657; 94665; 95819; 99291; A9515; A9539; C1098; C9113; G0431; G0479; G0481; G0483; J0131; J0171; J1720; J1815; J1953; J1956; J2250; J2310; J2704; J3010; J3370; J3480; J7030; J7040; J7042; J7050; J7070; Q2009